=== PATIENT | male | born 1955 | race Caucasian/White ===

== ENCOUNTER 2021-01-27 14:20 | Inpatient (IN) | payer BC, SELFPAY ==
[2021-01-27] VITALS (7 sets, daily range): BP systolic 106–141; BP diastolic 65–76; PULSE 82–98; RESP 18–22; TEMP 36.8–37.5; O2SAT 94–99; BMI 21.2
--- NOTE | ~2021-01-27 | CT_ITS ---
PROCEDURE: CT-GUIDED DRAINAGE, PERITONEAL ABSCESS CLINICAL INFORMATION: Intra-abdominal abscess. Multiple previous GI surgeries for Crohn's disease. COMPARISON: None TECHNIQUE: Following explaining CT fluoroscopy-guided intra-abdominal abscess drainage and catheter placement procedure, benefits and risks, written consent was obtained. Patient was placed supine on CT table and preliminary CT imaging was obtained. An optimal site was selected along the anterior abdomen and marked. The marked site was cleaned and draped in usual sterile manner. 1% lidocaine was injected at puncture site. Through a small skin incision a 5-Portuguese Yueh catheter was advanced into the intra-abdominal abscess under CT fluoroscopy guidance. After observing pus return, stylet was withdrawn and a 0.035 J-wire was placed. The Yueh needle was withdrawn and 10.2-Portuguese APD catheter with stiffener was advanced over the guidewire and placed within the abscess. The stiffener was removed as the catheter was advanced into the abscess. The entire stiffener and the guidewire was removed and a pigtail was formed. The pigtail was then connected to a suction bulb via a bivalve. CT imaging was performed to confirm tip of catheter within the abscess. The catheter was anchored to the skin with 3-0 nylon sutures. Sterile dressing was applied postprocedure. IV conscious sedation was administered during the exam. Patient tolerated procedure extremely well. This CT examination was performed using dose optimization techniques as appropriate, variously including the following: *Automated exposure control *Adjustment of mA and/or kV according to patient size (this includes techniques or standardized protocols for targeted exams where dose is matched to indication/reason for exam; i.e. extremities or head) *Use of iterative reconstruction technique DLP: 177 mGy-cm FINDINGS: On preliminary CT imaging there is a intra-abdominal abscess just adjacent to the umbilicus measuring 5.4 x 3.0 cm. A 10.2-Portuguese APD catheter was left in the abscess. The abscess lies in close approximation to the ileocolic anastomosis with inferior adjacent thickened ileal loop. The findings are similar to the preceding CT abdomen exam 01/27/2021. CT/CT drain peritoneum IMPRESSION: Successful CT fluoroscopy-guided placement of 10.2-Portuguese APD catheter. Approximately 2 mL of abscess was collected and sent to lab for anaerobic, aerobic culture and sensitivity including Gram stain.
--- NOTE | ~2021-01-27 | CT_ITS ---
EXAMINATION: CT ABDOMEN AND PELVIS WITH CONTRAST CLINICAL INFORMATION: bilateral lower quadrant pain COMPARISON: 10/25/2012 TECHNIQUE: Multidetector volumetric imaging was performed from the superior aspect of the liver through the pubic symphysis following administration of 100 mL Omnipaque 350 intravenous contrast Sagittal and coronal reformatted images were obtained on the technologist workstation.. This CT examination was performed using dose optimization techniques as appropriate, variously including the following: *Automated exposure control *Adjustment of mA and/or kV according to patient size (this includes techniques or standardized protocols for targeted exams where dose is matched to indication/reason for exam; i.e. extremities or head) *Use of iterative reconstruction technique DLP: 339 mGy-cm FINDINGS: LUNG BASES: Linear scarring or atelectasis at the lung bases. LIVER, GALLBLADDER, AND BILIARY TREE: The liver is normal in size, shape, and attenuation. No focal hepatic lesion or biliary ductal dilatation is present. Gallstone seen in the dependent portion of the gallbladder. No gallbladder wall thickening or pericholecystic inflammatory changes noted. PANCREAS: Unremarkable. SPLEEN: Unremarkable. ADRENAL GLANDS: Unremarkable. KIDNEYS AND URETERS: The kidneys are normal in size, shape, and attenuation. Mild fullness to the lateral renal pelvises and ureters without caliectasis or perinephric stranding. Both ureters are followed throughout their course up to the urinary bladder with no obvious ureteric calculi BLADDER: Unremarkable. GASTROINTESTINAL TRACT: Relatively distended rectum compressed rectosigmoid. Sigmoid colon is tortuous. Although decompressed, it would be difficult to exclude some subtle wall thickening in the descending colon. Patient is status post right hemicolectomy with ileocolic anastomosis to the mid transverse colon. The neoterminal ileum is abnormally thick-walled for length of approximately 12 cm proximal to the ileocolic anastomosis. There is mucosal enhancement in this region consistent with underlying acute inflammatory change. There is also an ill-defined interloop collection in the midline periumbilical region directly abutting the neoterminal ileum and ileocolic anastomosis. This abscess collection measures 5.9 x 3.8 x 5.5 cm in size. Strictly contiguous with the transverse colon near the anastomosis and directly abuts the distal ileum as well. There are surrounding inflammatory changes and mesenteric lymph nodes noted. ABDOMINAL WALL: No significant hernia is appreciated. LYMPHOVASCULAR STRUCTURES: Prominent mesenteric adenopathy surrounding the interloop abscess likely reactive in nature PELVIC VISCERA: Unremarkable. OSSEOUS STRUCTURES: Unremarkable. CT/CT abdomen pelvis w con IMPRESSION: Status post right hemicolectomy with ileocolic anastomosis to the mid transverse colon. There is abnormal wall thickening to the distal ileum/neoterminal ileum extending to the ileocolic anastomosis consistent with acute inflammation in this patient with underlying Crohn's disease. Abutting this area there is a irregularly-shaped peripheral enhancing collection likely representing an interloop abscess. This is directly abutting the remaining transverse colon near the anastomosis as well as abutting the neoterminal ileum. There are prominent surrounding lymph nodes.
--- NOTE | 2021-01-27 16:59 | ECG_ITS ---
Test Reason : ABDOMINAL PAIN Blood Pressure : / mmHG Vent. Rate : 082 BPM Atrial Rate : 082 BPM P-R Int : 180 ms QRS Dur : 134 ms QT Int : 396 ms P-R-T Axes : 057 004 024 degrees QTc Int : 462 ms Normal sinus rhythm Right bundle branch block Abnormal ECG When compared with ECG of 11-JUN-2007 19:14, Right bundle branch block is now Present Referred By: Erin Rodriguez Electronically Signed By:BRETT GAGNON
--- NOTE | 2021-01-27 17:04 | ED_ITS ---
HPI - General Adult General Chief complaint: General Medical Stated complaint: ABD PAIN WEAK +COVID 3WKS AGO Time Seen by Provider: 01/27/21 16:40 Source: patient Mode of arrival: ambulatory Limitations: no limitations History of Present Illness HPI narrative: Patient comes to the emergency room complaining of generalized malaise and weakness and upper abdominal pain for 1 week. Patient states that he tested positive for COVID-19 3 weeks ago. Patient states that for the last 2 weeks while he was in quarantine he was doing fairly well and asymptomatic. After the quarantine was over, he started developing chills, no fever, generalized malaise, weakness and upper abdominal pain constantly which does get worse with food intake or fluids. Patient is known to have Crohn's disease, has been in remission for over 4 years. Patient used to take Humira but due to insurance issues he had to stop his treatment 4 years ago. Patient states he has been having multiple episodes of diarrhea, no vomiting Related Data Allergies Allergy/AdvReac Type Severity Reaction Status Date / Time Penicillins [PENICILLINS] Allergy Unknown RASH Unverified 07/02/20 15:24 PCN Allergy Unknown rash Uncoded 12/10/12 00:00 penicillin Allergy Unknown Uncoded 03/31/16 00:00 Review of Systems Review of Systems: Constitutional : No Weight loss, No Fever, No Chills, No Night Sweats, complaining of fatigue and generalized malaise ENT/Mouth : No Hearing loss, No Ear Pain, No Nasal Congestion, No Sinus Pain, No Hoarseness, No sore throat, No Rhinorrhea, No Swallowing Difficulty Eyes: No Eye Pain, No Swelling, No Redness, No Foreign Body, No Discharge, No Vision Changes Cardiovascular : No Chest Pain, No SOB, denies Dyspnea on Exertion, No Orthopnea, No Edema, No Palpitations Respiratory : No Cough, No Sputum, No Wheezing, No Smoke Exposure, No Dyspnea Gastrointestinal : No Nausea, No Vomiting, complaining of diarrhea, and bilateral upper quadrant pain and epigastric pain. No Hematochezia, No Melena Genitourinary : no irregular bleeding, No Dysuria, No Urinary Frequency, No Hematuria, No Urinary Incontinence, No Urgency, No Flank Pain, No Urinary Flow Changes, No Hesitancy Musculoskeletal : No joint pain, No Myalgias, No Joint Swelling Skin : No Skin Lesions, No rash Neuro : No Weakness, No Numbness, No Paresthesias, No Loss of Consciousness, No Dizziness, No Headache Psych : No Anxiety/Panic, No Depression, No SI/HI/AH/VH, No Social Issues, Heme/Lymph: No Bruising, No Bleeding,No Lymphadenopathy Endocrine : No Polyuria, No Polydipsia, No Temperature Intolerance [facility] Past Medical History Medical History Abdominal adhesions Crohn's disease Social History Social History Advance Directives: Yes Advance Directives Information Provided: Yes Advance Directives on File: No Physical Exam Vital Signs: Vital Signs: Last Vital Signs Temp 99.1 F 01/27/21 19:37 Pulse 90 01/27/21 19:37 Resp 20 01/27/21 20:52 BP 140/74 H 01/27/21 19:37 Pulse Ox 99 01/27/21 19:37 Body Mass Index 21.2 Appearance: Alert. Oriented X3. No acute distress. Eyes: Pupils equal, round and reactive to light. ENT: Pharynx normal. Neck: Normal inspection. Neck supple. No lymph nodes noted. No crepitus CVS: Normal heart rate and rhythm. Pulses normal. Normal S1 and S2 Respiratory: No respiratory distress. Breath sounds normal. No Wheezing. No rales Abdomen: Soft, mild discomfort to palpation over bilateral upper quadrants. No rigidity. No distention. good BS x4 Skin: Skin warm and dry. Normal skin color. Normal skin turgor. Extremities: No lower extremity edema. No lower extremity edema. No Lacerations. No Rash Neuro: Oriented X 3. No motor deficit. No sensory deficit. Moving all extermities. No slurred speech. Course Course Course Narrative: I discussed the patient with Dr. Mitchell this, patient will be admitted under the Medicine Team, interventional Radiology will likely drain the abscess in the morning. Lactic acid and blood cultures pending, at this time sepsis is not suspected. Dr. Gonzalez will be admitting the patient. Medical Decision Making Lab Data Result diagrams: 01/27/21 16:59 01/27/21 Unknown Labs: Lab Results 01/27/21 01/27/21 01/27/21 Range/Units 16:57 16:59 19:45 WBC 14.7 H (4.8-10.8) X10*3/uL RBC 3.96 L (4.60-5.80) X10*6/uL Hgb 12.5 L (14.0-18.0) g/dl Hct 38.4 L (42-52) % MCV 97.0 (80-98) fL MCH 31.6 (27.0-33.0) pg MCHC 32.6 (31.0-36.0) g/dl RDW 12.6 (11.0-16.0) % Plt Count 562 H (160-400) X10*3/uL MPV 9.2 L (9.4-12.4) fL Immature Gran % (Auto) 0.5 H (0.0-0.4) % Neut % (Auto) 82.7 H (45-73) % Lymph % (Auto) 8.3 L (20-40) % [place] % (Auto) 7.2 (2-11) % Eos % (Auto) 1.2 (0-4) % Baso % (Auto) 0.1 (0-2) % Lymph # (Auto) 1.2 (1.2-4.9) X10*3/uL [place] # (Auto) 1.1 (0.1-1.2) X10*3/uL Eos # (Auto) 0.2 (0.0-0.4) X10*3/uL Baso # (Auto) 0.0 (0.0-0.2) X10*3/uL Abs Immat Gran (auto) 0.07 H (0.00-0.03) X10*3/uL Absolute Neuts (auto) 12.1 H (2.0-8.3) X10*3/uL Absolute Nucleated RBC 0.000 (0.0-0.012) X10*3/uL Nucleated RBC % (auto) 0.0 (0.0-0.2) /100WBC Sodium (135-145) mmol/L Potassium (3.3-5.1) mmol/L Chloride (96-108) mmol/L Carbon Dioxide (22-29) mmol/L Anion Gap (12-20) BUN (9-16) mg/dL Creatinine (0.5-1.4) mg/dL Estim Creat Clear Calc Estimated GFR Random Glucose (60-115) mg/dL Lactic Acid (0.5-2.0) mmol/L Calcium (8.4-10.2) mg/dL Total Bilirubin (0.0-1.0) mg/dL Direct Bilirubin (0.0-0.5) mg/dL AST (5-37) U/L ALT (0-40) U/L Alkaline Phosphatase (39-117) U/L Total Protein (6.5-8.0) g/dL Albumin (3.5-5.0) g/dL Lipase (8-78) U/L Urine Color STRAW YELLOW Urine Appearance CLEAR CLEAR Urine pH 6.5 6.5 (5.0-8.0) Ur Specific [place] 1.010 <= 1.005 (1.005-1.025) Urine Protein NEG NEG (NEG-TRACE) MG/DL Urine Glucose (UA) NEG 100 H (NEG) MG/DL Urine Ketones NEG NEG (NEG) MG/DL Urine Blood TRACE TRACE (NEG) Urine Nitrite NEG NEG (NEG) Ur Leukocyte Esterase NEG NEG (NEG) Urine RBC 0-2 0-2 (0) /HPF Urine WBC 0-2 0 (0-4) /HPF Ur Squamous Epith Cells TRACE NONE /LPF Urine Bacteria NONE NONE /LPF 01/27/21 01/27/21 Range/Units Unknown Unknown WBC (4.8-10.8) X10*3/uL RBC (4.60-5.80) X10*6/uL Hgb (14.0-18.0) g/dl Hct (42-52) % MCV (80-98) fL MCH (27.0-33.0) pg MCHC (31.0-36.0) g/dl RDW (11.0-16.0) % Plt Count (160-400) X10*3/uL MPV (9.4-12.4) fL Immature Gran % (Auto) (0.0-0.4) % Neut % (Auto) (45-73) % Lymph % (Auto) (20-40) % [place] % (Auto) (2-11) % Eos % (Auto) (0-4) % Baso % (Auto) (0-2) % Lymph # (Auto) (1.2-4.9) X10*3/uL [place] # (Auto) (0.1-1.2) X10*3/uL Eos # (Auto) (0.0-0.4) X10*3/uL Baso # (Auto) (0.0-0.2) X10*3/uL Abs Immat Gran (auto) (0.00-0.03) X10*3/uL Absolute Neuts (auto) (2.0-8.3) X10*3/uL Absolute Nucleated RBC (0.0-0.012) X10*3/uL Nucleated RBC % (auto) (0.0-0.2) /100WBC Sodium 139 (135-145) mmol/L Potassium 3.0 L (3.3-5.1) mmol/L Chloride 103 (96-108) mmol/L Carbon Dioxide 25 (22-29) mmol/L Anion Gap 14 (12-20) BUN 8 L (9-16) mg/dL Creatinine 0.79 (0.5-1.4) mg/dL Estim Creat Clear Calc 85.9 Estimated GFR > 60 Random Glucose 94 (60-115) mg/dL Lactic Acid 0.9 (0.5-2.0) mmol/L Calcium 9.0 (8.4-10.2) mg/dL Total Bilirubin 0.4 (0.0-1.0) mg/dL Direct Bilirubin 0.2 (0.0-0.5) mg/dL AST 15 (5-37) U/L ALT 16 (0-40) U/L Alkaline Phosphatase 106 (39-117) U/L Total Protein 6.5 (6.5-8.0) g/dL Albumin 3.8 (3.5-5.0) g/dL Lipase 12 (8-78) U/L Urine Color Urine Appearance Urine pH (5.0-8.0) Ur Specific [place] (1.005-1.025) Urine Protein (NEG-TRACE) MG/DL Urine Glucose (UA) (NEG) MG/DL Urine Ketones (NEG) MG/DL Urine Blood (NEG) Urine Nitrite (NEG) Ur Leukocyte Esterase (NEG) Urine RBC (0) /HPF Urine WBC (0-4) /HPF Ur Squamous Epith Cells /LPF Urine Bacteria /LPF Imaging Data CT scan - abdomen: Radiologist's impression: FINDINGS: LUNG BASES: Linear scarring or atelectasis at the lung bases. LIVER, GALLBLADDER, AND BILIARY TREE: The liver is normal in size, shape, and attenuation. No focal hepatic lesion or biliary ductal dilatation is present. Gallstone seen in the dependent portion of the gallbladder. No gallbladder wall thickening or pericholecystic inflammatory changes noted. PANCREAS: Unremarkable. SPLEEN: Unremarkable. ADRENAL GLANDS: Unremarkable. KIDNEYS AND URETERS: The kidneys are normal in size, shape, and attenuation. Mild fullness to the lateral renal pelvises and ureters without caliectasis or perinephric stranding. Both ureters are followed throughout their course up to the urinary bladder with no obvious ureteric calculi BLADDER: Unremarkable. GASTROINTESTINAL TRACT: Relatively distended rectum compressed rectosigmoid. Sigmoid colon is tortuous. Although decompressed, it would be difficult to exclude some subtle wall thickening in the descending colon. Patient is status post right hemicolectomy with ileocolic anastomosis to the mid transverse colon. The neoterminal ileum is abnormally thick-walled for length of approximately 12 cm proximal to the ileocolic anastomosis. There is mucosal enhancement in this region consistent with underlying acute inflammatory change. There is also an ill-defined interloop collection in the midline periumbilical region directly abutting the neoterminal ileum and ileocolic anastomosis. This abscess collection measures 5.9 x 3.8 x 5.5 cm in size. Strictly contiguous with the transverse colon near the anastomosis and directly abuts the distal ileum as well. There are surrounding inflammatory changes and mesenteric lymph nodes noted. ABDOMINAL WALL: No significant hernia is appreciated. LYMPHOVASCULAR STRUCTURES: Prominent mesenteric adenopathy surrounding the interloop abscess likely reactive in nature PELVIC VISCERA: Unremarkable. OSSEOUS STRUCTURES: Unremarkable. CT/CT abdomen pelvis w con IMPRESSION: Status post right hemicolectomy with ileocolic anastomosis to the mid transverse colon. There is abnormal wall thickening to the distal ileum/neoterminal ileum extending to the ileocolic anastomosis consistent with acute inflammation in this patient with underlying Crohn's disease. Abutting this area there is a irregularly-shaped peripheral enhancing collection likely representing an interloop abscess. This is directly abutting the remaining transverse colon near the anastomosis as well as abutting the neoterminal ileum. There are prominent surrounding lymph nodes. ECG Data Attestation: I personally reviewed and interpreted this ECG as follows: (Heart rate 82, sinus rhythm, right bundle branch block, QTC 462) Discharge Plan Discharge Clinical Impression: Exacerbation of Crohn's disease with abscess Patient Disposition: Admitted As Inpatient
[2021-01-27 17:06] LABS: Glucose Urine UA NEG (NEG); Leukocyte Esterase Urine NEG (NEG); Nitrite Urine NEG (NEG); PH 6.5 (5.0-8.0); Urine Blood TRACE (NEG); Urine Ketones NEG (NEG); Urine Protein NEG (NEG-TRACE)
[2021-01-27 17:07] LABS: Appearance Urine CLEAR; Color Urine STRAW
[2021-01-27 17:41] LABS: RBC Urine 0-2 /HPF (0); Squamous Epithelial Cell Urine TRACE /LPF; WBC Urine 0-2 /HPF (0-4)
[2021-01-27 17:56] LABS: Basophils Percent Auto 0.1 % (0-2); Eosinophils Absolute Auto 0.2 X10*3/uL (0.0-0.4); Eosinophils Percent Auto 1.2 % (0-4); Hematocrit 38.4 % (42-52); Hemoglobin 12.5 g/dl (14.0-18.0); Imm Gran Abs Auto 0.07 X10*3/uL (0.00-0.03); Imm Gran Pct Auto 0.5 % (0.0-0.4); Lymphocytes Absolute Auto 1.2 X10*3/uL (1.2-4.9); Lymphocytes Percent Auto 8.3 % (20-40); MANUAL DIFF FLAG NO; Mean Corpuscular HGB Conc 32.6 g/dl (31.0-36.0); Mean Corpuscular Hemoglobin 31.6 pg (27.0-33.0); Mean Platelet Volume 9.2 fL (9.4-12.4); Monocytes Absolute Auto 1.1 X10*3/uL (0.1-1.2); Monocytes Percent Auto 7.2 % (2-11); Neutrophils Absolute Auto 12.1 X10*3/uL (2.0-8.3); Neutrophils Percent Auto 82.7 % (45-73); Platelet Count 562 X10*3/uL (160-400); Red Blood Count 3.96 X10*6/uL (4.60-5.80); Red Cell Distribution Width 12.6 % (11.0-16.0); White Blood Count 14.7 X10*3/uL (4.8-10.8)
[2021-01-27] MEDS: Morphine Sulfate 4 MG/ML CARTRIDGE IVPUSH (17:56)
[2021-01-27] MEDS: 0.9 % Sodium Chloride 1,000 ML 999 ML IVCONT ×2 (17:56→22:33)
[2021-01-27 18:17] LABS: Lactic Acid 0.9 mmol/L (0.5-2.0)
[2021-01-27 18:29] LABS: Alanine Aminotransferase 16 U/L (0-40); Albumin Level 3.8 g/dL (3.5-5.0); Alkaline Phosphatase 106 U/L (39-117); Anion Gap 14 (12-20); Aspartate Amino Transferase 15 U/L (5-37); Bilirubin Direct 0.2 mg/dL (0.0-0.5); Bilirubin Total 0.4 mg/dL (0.0-1.0); Blood Urea Nitrogen 8 mg/dL (9-16); Carbon Dioxide 25 mmol/L (22-29); Chloride 103 mmol/L (96-108); Creatinine Clr Calc Pharmacy 85.9; Estimated Glomerular Filt Rate > 60; Glucose Random 94 mg/dL (60-115); Lipase 12 U/L (8-78); Sodium 139 mmol/L (135-145); Total Protein 6.5 g/dL (6.5-8.0)
[2021-01-27] MEDS: iohexoL 350 MG/ML 100 ML INFUS..BTL IV (18:59)
[2021-01-27 20:08] LABS: Glucose Urine UA 100 MG/DL (NEG); Leukocyte Esterase Urine NEG (NEG); Nitrite Urine NEG (NEG); PH 6.5 (5.0-8.0); Specific Gravity - Urine <= 1.005 (1.005-1.025); Urine Blood TRACE (NEG); Urine Ketones NEG (NEG); Urine Protein NEG (NEG-TRACE)
[2021-01-27 20:10] LABS: Appearance Urine CLEAR; Color Urine YELLOW
[2021-01-27 20:31] LABS: RBC Urine 0-2 /HPF (0); WBC Urine 0 /HPF (0-4)
[2021-01-27] MEDS: methylPREDNISolone Sod Succ 125 MG/2 ML VIAL IVPUSH (20:52)
[2021-01-27] MEDS: HYDROmorphone HCl 1 MG/ML SYRINGE IVPUSH (20:52)
--- NOTE | 2021-01-27 21:12 | P.HPHOSP_ITS ---
History of Present Illness Date of Service: 01/27/21 Chief Complaint: Abdominal pain 65-year-old male with a past medical history of Crohn's disease-in remission currently not on any medications; recently diagnosed with COVID-19 about 3 weeks ago and has been asymptomatic until a week ago when she started to develop diarrhea and abdominal pain, constant in nature worsens with food intake. As the symptoms were not improving decided to come to the ER for further evaluation. Denies any chest pain palpitations lightheadedness or dizziness. Denies any shortness of breath fevers or chills. Denies any cough. Denies any nausea. Review of all other systems is negative except mentioned above ER course: Per ER team patient abdominal exam was tender more so in the upper quadrants, no guarding no rigidity; CT scan showed wall thickening of the ileal colic anastomosis consistent with acute inflammation and also noted interloop abscess; patient was given Solu-Medrol, antibiotics; ER physician spoke to Dr. Mitchell from general surgery who suggested admission to medicine service and IR guided drainage of the abscess in the morning. [facility] Medical History Abdominal adhesions Crohn's disease Social History Household Members: Spouse Housing: House Smoking Status: Former smoker Tobacco Type: Cigarette Second Hand Smoke Exposure: No Advance Directives Date on File: 01/28/21 service: No Current occupational status: retired Meds Allergies Allergy/AdvReac Type Severity Reaction Status Date / Time Penicillins [PENICILLINS] Allergy Mild RASH Verified 01/30/21 17:40 PCN Allergy Mild rash Uncoded 01/30/21 17:40 penicillin Allergy Mild Rash Uncoded 01/30/21 17:40 Active Medications: Current Medications Generic Name Dose Route Start Last Admin Trade Name Freq PRN Reason Stop Dose Admin Acetaminophen 650 mg 01/27/21 21:02 Acetaminophen 325 Mg Tablet PO Q6H PRN Pain, Mild (Pain Scale 1-3) Hydromorphone HCl 0.5 mg 01/27/21 21:03 Hydromorphone Hcl 0.5 Mg/0.5 Ml Syringe IVPUSH Q6H PRN Pain, Severe (Pain Scale 7-10) Metronidazole 500 mg in 100 mls @ 100 mls/hr 01/27/21 20:51 Flagyl IV 01/27/21 21:50 POSTOP ONE Levofloxacin 500 mg in 100 mls @ 100 mls/hr 01/27/21 20:51 Levaquin IV 01/27/21 21:50 ONCE ONE Sodium Chloride 1,000 mls @ 999 mls/hr 01/27/21 20:59 Ns IVCONT 01/27/21 21:59 .Q1H1M ONE Dextrose/Sodium Chloride 1,000 mls @ 100 mls/hr 01/27/21 21:15 D51/2ns IVCONT .Q10H HERMINIA Metronidazole 500 mg in 100 mls @ 100 mls/hr 01/27/21 21:15 Flagyl IV Q8H HERMINIA Levofloxacin 750 mg in 150 mls @ 100 mls/hr 01/28/21 21:15 Levaquin IV Q24H [facility] Pharmacy Consult 1 each 01/27/21 20:57 Consult Rx Perform Med Rec MISCELLANE ONCE PRN Consult order Pharmacy Consult 1 each 01/27/21 21:02 Consult Rx Perform Med Rec MISCELLANE ONCE PRN Consult order Sodium Chloride 3 ml 01/28/21 00:00 0.9 % Sodium Chloride Flush 3 Ml Syringe IVFLUSH QSHIFT [facility] Physical Exam Vital Signs and Narrative: Vital Signs: Last Vital Signs Temp 99.1 F 01/27/21 19:37 Pulse 90 01/27/21 19:37 Resp 20 01/27/21 20:52 BP 140/74 H 01/27/21 19:37 Pulse Ox 99 01/27/21 19:37 Body Mass Index 21.2 Gen: Appears be in no acute distress HEENT: NCAT, Moist mucosa. Pulmonary: Vesicular breath sounds, fair air entry CVS: Normal S1-S2 Abdomen: BS+, Soft, mildly tender diffusely; no guarding no rigidity Extremities: Warm well perfused Neuro: Alert and awake. Results Labs CBC and Chem 7: 01/30/21 06:12 02/02/21 12:17 Labs: Laboratory Results - last 24 hr 01/27/21 01/27/21 01/27/21 16:57 16:59 19:45 MCV 97.0 MCH 31.6 MCHC 32.6 RDW 12.6 Plt Count 562 H MPV 9.2 L Immature Gran % (Auto) 0.5 H Neut % (Auto) 82.7 H Lymph % (Auto) 8.3 L [place] % (Auto) 7.2 Eos % (Auto) 1.2 Baso % (Auto) 0.1 Lymph # (Auto) 1.2 [place] # (Auto) 1.1 Eos # (Auto) 0.2 Baso # (Auto) 0.0 Abs Immat Gran (auto) 0.07 H Absolute Neuts (auto) 12.1 H Absolute Nucleated RBC 0.000 Nucleated RBC % (auto) 0.0 Anion Gap Estim Creat Clear Calc Estimated GFR Random Glucose Lactic Acid Calcium Total Bilirubin Direct Bilirubin AST ALT Alkaline Phosphatase Total Protein Albumin Lipase Urine Color STRAW YELLOW Urine Appearance CLEAR CLEAR Urine pH 6.5 6.5 Ur Specific [place] 1.010 <= 1.005 Urine Protein NEG NEG Urine Glucose (UA) NEG 100 H Urine Ketones NEG NEG Urine Blood TRACE TRACE Urine Nitrite NEG NEG Ur Leukocyte Esterase NEG NEG Urine RBC 0-2 0-2 Urine WBC 0-2 0 Ur Squamous Epith Cells TRACE NONE Urine Bacteria NONE NONE 01/27/21 01/27/21 Unknown Unknown MCV MCH MCHC RDW Plt Count MPV Immature Gran % (Auto) Neut % (Auto) Lymph % (Auto) [place] % (Auto) Eos % (Auto) Baso % (Auto) Lymph # (Auto) [place] # (Auto) Eos # (Auto) Baso # (Auto) Abs Immat Gran (auto) Absolute Neuts (auto) Absolute Nucleated RBC Nucleated RBC % (auto) Anion Gap 14 Estim Creat Clear Calc 85.9 Estimated GFR > 60 Random Glucose 94 Lactic Acid 0.9 Calcium 9.0 Total Bilirubin 0.4 Direct Bilirubin 0.2 AST 15 ALT 16 Alkaline Phosphatase 106 Total Protein 6.5 Albumin 3.8 Lipase 12 Urine Color Urine Appearance Urine pH Ur Specific [place] Urine Protein Urine Glucose (UA) Urine Ketones Urine Blood Urine Nitrite Ur Leukocyte Esterase Urine RBC Urine WBC Ur Squamous Epith Cells Urine Bacteria Imaging Radiologist's Impressions: Impressions Abdomen/Pelvis CT 01/27/21 16:58 IMPRESSION: Status post right hemicolectomy with ileocolic anastomosis to the mid transverse colon. There is abnormal wall thickening to the distal ileum/neoterminal ileum extending to the ileocolic anastomosis consistent with acute inflammation in this patient with underlying Crohn's disease. Abutting this area there is a irregularly-shaped peripheral enhancing collection likely representing an interloop abscess. This is directly abutting the remaining transverse colon near the anastomosis as well as abutting the neoterminal ileum. There are prominent surrounding lymph nodes. Assessment and Plan (1) Exacerbation of Crohn's disease with abscess: Status: Acute 65-year-old male with a past medical history of Crohn's disease presented to the hospital with a chief complaint of abdominal pain for about a week; noted to have Crohn's exacerbation with abscess. Admitted for further management. Crohn's flare /abscess; CT scan showed ileocolonic anastomosis inflammation and interloop abscess. Patient has no guarding or rigidity currently. Vital stable. General surgery Dr. Mitchell was made aware, who suggested IR guided drainage in the morning. NPO IV fluids Pain control Continue Levaquin and Flagyl Blood cultures have been sent Will continue Solu-Medrol 20 mg IV t.i.d.. Gastroenterology consult for further recommendations Will also obtain stool studies including C diff and occult blood Recent diagnosis of COVID-19: Patient finished 2 weeks of quarantine. Currently denies any fever chills cough or shortness of breath. DVT prophylaxis: SCD boots Code status: Full code
[2021-01-27] MEDS: Metoclopramide HCl 10 MG/2 ML VIAL IVPUSH (22:29)
[2021-01-27] MEDS: levoFLOXacin/D5W 500 MG/100 ML PIGGYBACK 100 MG IV (22:31)
[2021-01-27 22:35] LABS: Lactic Acid 0.8 mmol/L (0.5-2.0)
[2021-01-27 22:40] LABS: COVID-19 Test Negative (Negative); IDNOW Serial# 9DD0AD1C
[2021-01-28] VITALS (7 sets, daily range): BP systolic 106–122; BP diastolic 57–72; PULSE 75–90; RESP 14–20; TEMP 36.2–36.9; O2SAT 96–97
[2021-01-28] MEDS: Dextrose 5 % and 0.45 % NaCl 1,000 ML 100 ML IVCONT ×3 (00:02→23:53)
[2021-01-28] MEDS: metroNIDAZOLE/NS 500 MG/100 ML PIGGYBACK 100 MG IV ×4 (00:02→21:21)
[2021-01-28] MEDS: 0.9 % Sodium Chloride Flush 3 ML SYRINGE IVFLUSH ×2 (00:06→22:22)
--- NOTE | 2021-01-28 01:35 | PC.NURSE ---
Report attempted x 1
[2021-01-28] MEDS: methylPREDNISolone Sod Succ 40 MG/ML VIAL 20 MG IVPUSH (05:45)
--- NOTE | 2021-01-28 08:21 | PM.CNGS ---
History of Present Illness Consult details Consult date: 01/28/21 Narrative: 65-year-old male with known history of Crohn's disease, who came to the emergency room yesterday because of abdominal pain. He says that he has been going on for about a week now. He denies any fever or chills. He mentions having some diarrhea about 2 weeks ago. He does state that he had a COVID infection prior to that and thought that this might have been related to the COVID infection. His pain had persisted so he decided to come to the emergency room. He said this was an 8/10 usually at home. Denies any nausea or vomiting. He denies any fever. He has a long history of disease and underwent ileo- colectomy a 1986. He underwent a repeat resection of the distal ileum and part of the colon for an inflammatory mass with an abscess in [address] Parmar. He was admitted in 2012 for a mesenteric abscess as well. He states he has not seen Dr. Hernandez his well driller helper in a long time. He said he has not taking any maintenance medications for his Crohn's disease. Currently, he says he does not have any pain anymore. Review of Systems Constitutional: Constitutional: Denies chills and Denies fever(s) Cardiovascular: Cardiovascular: Denies chest pain, Denies dyspnea and Denies dyspnea on exertion Respiratory: Respiratory: Denies cough, Denies dyspnea and Denies dyspnea on exertion Gastrointestinal: Gastrointestinal: Denies hematochezia and Reports diarrhea Genitourinary: Genitourinary: Denies hematuria and Denies difficulty urinating Musculoskeletal: Musculoskeletal: Denies back pain and Denies limited range of motion Neurologic: Denies focal weakness and Denies convulsions Psychiatric: Psychiatric: Denies depression and Denies mood swings [facility] Past Medical History Medical History Abdominal adhesions Crohn's disease Social History Social History Household Members: Spouse Housing: House Do you presently have visiting nurse or other home services: No Smoking Status: Former smoker Tobacco Type: Cigarette Smoked in Last 30 Days: No Smoking Quit Date: 01/06/21 Patient Interested in Nicotine Replacement: No Patient Given Instructions on How to Stop Smoking: No Second Hand Smoke Exposure: No Use of substances other than those prescribed or required for medical reasons: No Currently Displaying Signs/Symptoms of Drug Intoxication Withdrawal: No Have you been hit, kicked, punched, or otherwise hurt by someone within the past year? If so, by whom?: No Do you feel safe in your current relationship?: Yes Is there a partner from a previous relationship who is making you feel unsafe now?: No Are you made to feel afraid or neglected: No Advance Directives: Yes Advance Directives Information Provided: Yes Advance Directives on File: No Advance Directives Date on File: 01/28/21 Do you have thoughts of harming others: None Do you have a plan to hurt others: No Plan Recently lost weight without trying: Yes service: No Current occupational status: retired Meds Allergies Allergy/AdvReac Type Severity Reaction Status Date / Time Penicillins [PENICILLINS] Allergy Unknown RASH Unverified 07/02/20 15:24 PCN Allergy Unknown rash Uncoded 12/10/12 00:00 penicillin Allergy Unknown Uncoded 03/31/16 00:00 Active Medications: Current Medications Generic Name Dose Route Start Last Admin Trade Name Freq PRN Reason Stop Dose Admin Acetaminophen 650 mg 01/27/21 21:02 Acetaminophen 325 Mg Tablet PO Q6H PRN Pain, Mild (Pain Scale 1-3) Hydromorphone HCl 0.5 mg 01/27/21 21:03 Hydromorphone Hcl 0.5 Mg/0.5 Ml Syringe IVPUSH Q6H PRN Pain, Severe (Pain Scale 7-10) Dextrose/Sodium Chloride 1,000 mls @ 100 mls/hr 01/27/21 21:15 01/28/21 07:38 D51/2ns IVCONT Not Given .Q10H HERMINIA Metronidazole 500 mg in 100 mls @ 100 mls/hr 01/28/21 06:00 01/28/21 07:10 Flagyl IV Infused Q8H HERMINIA Infusion Levofloxacin 750 mg in 150 mls @ 100 mls/hr 01/28/21 22:00 Levaquin IV Q24H EHRMINIA Methylprednisolone Sodium Succinate 20 mg 01/27/21 21:15 01/28/21 05:45 Methylprednisolone Sod Succ 40 Mg/Ml Vial IVPUSH 20 mg Q8H [facility] Administration Pharmacy Consult 1 each 01/27/21 20:57 Consult Rx Perform Med Rec MISCELLANE ONCE PRN Consult order Pharmacy Consult 1 each 01/27/21 21:02 Consult Rx Perform Med Rec MISCELLANE ONCE PRN Consult order Sodium Chloride 3 ml 01/28/21 00:00 01/28/21 07:38 0.9 % Sodium Chloride Flush 3 Ml Syringe IVFLUSH Not Given QSHIFT [facility] Home Medications Medication Instructions Recorded Confirmed Last Taken Type No Known Home Meds 01/27/21 01/27/21 Unknown History Physical Exam Vital Signs: Vital Signs: Last Vital Signs Temp 97.7 F 01/28/21 07:47 Pulse 81 01/28/21 07:47 Resp 16 01/28/21 07:47 BP 106/64 01/28/21 07:47 Pulse Ox 96 01/28/21 07:47 Body Mass Index 21.2 Const: General: comfortable and no acute distress Orientation/consciousness: patient oriented x3 Neck: Neck: Yes no lymphadenopathy Resp: Auscultation: clear to auscultation bilaterally Cardio: Rhythm: regular rhythm GI: Palpation (GI): Soft to palpation, nontender and no guarding Neuro: General: patient oriented x3 Results Labs Result diagrams: 01/28/21 07:49 01/28/21 07:49 Labs: Abnormal lab results 01/27/21 01/27/21 01/27/21 Range/Units 16:59 19:45 Unknown WBC 14.7 H (4.8-10.8) X10*3/uL RBC 3.96 L (4.60-5.80) X10*6/uL Hgb 12.5 L (14.0-18.0) g/dl Hct 38.4 L (42-52) % Plt Count 562 H (160-400) X10*3/uL MPV 9.2 L (9.4-12.4) fL Immature Gran % (Auto) 0.5 H (0.0-0.4) % Neut % (Auto) 82.7 H (45-73) % Lymph % (Auto) 8.3 L (20-40) % Abs Immat Gran (auto) 0.07 H (0.00-0.03) X10*3/uL Absolute Neuts (auto) 12.1 H (2.0-8.3) X10*3/uL Potassium 3.0 L (3.3-5.1) mmol/L BUN 8 L (9-16) mg/dL Urine Glucose (UA) 100 H (NEG) MG/DL Short CBC 01/27/21 Range/Units 16:59 WBC 14.7 H (4.8-10.8) X10*3/uL Hgb 12.5 L (14.0-18.0) g/dl Hct 38.4 L (42-52) % Plt Count 562 H (160-400) X10*3/uL BMP 01/27/21 Unknown Sodium 139 Potassium 3.0 L Chloride 103 Carbon Dioxide 25 BUN 8 L Creatinine 0.79 Calcium 9.0 Liver Function 01/27/21 Range/Units Unknown Total Bilirubin 0.4 (0.0-1.0) mg/dL Direct Bilirubin 0.2 (0.0-0.5) mg/dL AST 15 (5-37) U/L ALT 16 (0-40) U/L Alkaline Phosphatase 106 (39-117) U/L Albumin 3.8 (3.5-5.0) g/dL Urine 01/27/21 01/27/21 Range/Units 16:57 19:45 Urine Color STRAW YELLOW Urine Appearance CLEAR CLEAR Urine pH 6.5 6.5 (5.0-8.0) Ur Specific [place] 1.010 <= 1.005 (1.005-1.025) Urine Protein NEG NEG (NEG-TRACE) MG/DL Urine Glucose (UA) NEG 100 H (NEG) MG/DL All other labs normal. Imaging Abdomen CT scan report/results: report reviewed and image reviewed CT scan - pelvis: report reviewed and image reviewed Assessment and Plan (1) Exacerbation of Crohn's disease with abscess: Status: Acute He has a long history of Crohn's disease and now has an intra-abdominal abscess adjacent to his distal ileum where the old anastomosis is. There is thickening of the neoterminal ileum as well adjacent to the abscess. The abscess measured about 5.9 x 3.8 x 5.5 cm He currently denies pain. He has a benign abdominal exam at this time. I am going to arrange for him to undergo CT drainage of this abscess. He is currently on antibiotics already. He understands that there is always is the possibility him requiring laparotomy if he does not improve with the planned treatment. He appears comfortable and is hemodynamically stable.
--- NOTE | 2021-01-28 08:33 | P.EN_ITS ---
Event Note Date of Service: 01/28/21 Event Note: GI Consult-Full note dictated Imp: 65 yo male with longstanding Crohn's of the SI with 2 previous surgeries in 1985 and 2006 with associated ileocolic resections for associated localized perforations and abscesses. He has been on biologics and Azathioprine in the p ast, but he has been off all therapy since approx 2018 per his own wishes and had been doing well up until the past 10 days. He now presents with pain and the finding of an intraabdominal abscess with inflammatory changes of the distal small bowel and ileocolic anastomosis. He feels a little better after antibiotics and analgesics. Rec: Agree with current plans of surgical consultation with IR drainage of abscess and continued antibiotics. I would hold off on steroids for the time being given the significant infection and the fact that he has not been on steroids for many years. We did review that he may need surgery again. Will need to hold off on any definitive Crohn's until the infection has been cleared. He may need a PICC and TPN. D/W patient in detail, He is comfortable with this pl an. Thanks
[2021-01-28 08:35] LABS: Basophils Percent Auto 0.1 % (0-2); Hematocrit 32.3 % (42-52); Hemoglobin 11.2 g/dl (14.0-18.0); Imm Gran Abs Auto 0.04 X10*3/uL (0.00-0.03); Imm Gran Pct Auto 0.4 % (0.0-0.4); Lymphocytes Absolute Auto 0.5 X10*3/uL (1.2-4.9); Lymphocytes Percent Auto 5.5 % (20-40); MANUAL DIFF FLAG SCAN; Mean Corpuscular HGB Conc 34.7 g/dl (31.0-36.0); Mean Corpuscular Hemoglobin 33.2 pg (27.0-33.0); Mean Corpuscular Volume 95.8 fL (80-98); Mean Platelet Volume 9.6 fL (9.4-12.4); Monocytes Absolute Auto 0.1 X10*3/uL (0.1-1.2); Monocytes Percent Auto 1.2 % (2-11); Neutrophils Percent Auto 92.8 % (45-73); Platelet Count 489 X10*3/uL (160-400); Red Blood Count 3.37 X10*6/uL (4.60-5.80); Red Cell Distribution Width 12.6 % (11.0-16.0); SCAN SMEAR FLAG 1; White Blood Count 9.7 X10*3/uL (4.8-10.8)
--- NOTE | 2021-01-28 08:36 | MHC.CM.PN ---
PATIENT LIVES WITH HIS /NEW HCP. (PATIENT WILL SIGN DOCUMENT AFTER HE GETS SOME SLEEP) NO DME OR VNA SERVICES IN THE HOME HE IS HOPING TO BE ABLE TO RETURN HOME WITHOUT ANY SERVICES. HIS FORMER PCP WAS DR GHOSH. HE NOW HAS A PROVIDER LIST TO SECURE A CURRENT PCP, AND STATES THAT HE IS FAMILIAR WITH THE PROCESS OF DOING SO. CASE MANAGEMENT FOLLOWING FOR ANY DISCHARGE NEEDS. WILL TRANSPORT PATIENT AT DISCHARGE.
[2021-01-28 08:54] LABS: Anion Gap 12 (12-20); Blood Urea Nitrogen 6 mg/dL (9-16); Calcium 7.6 mg/dL (8.4-10.2); Carbon Dioxide 25 mmol/L (22-29); Chloride 106 mmol/L (96-108); Creatinine Clr Calc Pharmacy 95.6; Estimated Glomerular Filt Rate > 60; Glucose Random 151 mg/dL (60-115); Potassium 3.3 mmol/L (3.3-5.1); Sodium 140 mmol/L (135-145)
[2021-01-28 09:13] LABS: SLIDE REVIEW VERIFIED
[2021-01-28 10:12] LABS: INTERNATIONAL NORM RATIO 1.7 (0.9-1.1); Prothrombin Time 20.1 SEC (10.8-13.0)
[2021-01-28 10:16] LABS: Partial Thromboplastin Time 39.6 SEC (24.1-38.0)
--- NOTE | 2021-01-28 11:16 | HO.PM.IMPN ---
Subjective Subjective Date of Service: 01/28/21 Interval History: Seen in f/u for intraabdominal abscess related to crohn's disease..Feels better since getting antibioitcs. Review of Systems Gen: no fever Resp: no sob, no cough CV: no chest, no IVEY, no leg edema GI: +abdominal pain Neuro: No confusion Physical Exam Vital Signs: Vital Signs: Last Vital Signs Temp 97.7 F 01/28/21 07:47 Pulse 81 01/28/21 07:47 Resp 16 01/28/21 07:47 BP 106/64 01/28/21 07:47 Pulse Ox 96 01/28/21 07:47 Body Mass Index 21.2 Const: Other: General: AO X 3, no acute distress, cachectic Resp: CTA bilateral CVS: S1,S2,RRR GI: +BS, some tenderness, no palpable mass Skin: No rash Neuro: motor grossly intact Psych: appropriate affect Objective Data Current Medications Generic Name Dose Route Start Last Admin Trade Name Freq PRN Reason Stop Dose Admin Acetaminophen 650 mg 01/27/21 21:02 Acetaminophen 325 Mg Tablet PO Q6H PRN Pain, Mild (Pain Scale 1-3) Hydromorphone HCl 0.5 mg 01/27/21 21:03 Hydromorphone Hcl 0.5 Mg/0.5 Ml Syringe IVPUSH Q6H PRN Pain, Severe (Pain Scale 7-10) Dextrose/Sodium Chloride 1,000 mls @ 100 mls/hr 01/27/21 21:15 01/28/21 11:08 D51/2ns IVCONT 100 mls/hr .Q10H HERMINIA Administration Metronidazole 500 mg in 100 mls @ 100 mls/hr 01/28/21 06:00 01/28/21 07:10 Flagyl IV Infused Q8H [facility] Infusion Levofloxacin 750 mg in 150 mls @ 100 mls/hr 01/28/21 22:00 Levaquin IV Q24H [facility] Pharmacy Consult 1 each 01/27/21 20:57 Consult Rx Perform Med Rec MISCELLANE ONCE PRN Consult order Pharmacy Consult 1 each 01/27/21 21:02 Consult Rx Perform Med Rec MISCELLANE ONCE PRN Consult order Sodium Chloride 3 ml 01/28/21 00:00 01/28/21 07:38 0.9 % Sodium Chloride Flush 3 Ml Syringe IVFLUSH Not Given QSHIFT [facility] Labs CBC & Chem 7: 01/28/21 07:49 01/28/21 07:49 Assessment and Plan (1) Exacerbation of Crohn's disease with abscess: Status: Acute Assessment and Plan: 65-year-old male with a past medical history of Crohn's disease presented to the hospital with a chief complaint of abdominal pain for about a week; noted to have Crohn's exacerbation with abscess. Admitted for further management. Crohn's flare /abscess; CT scan showed ileocolonic anastomosis inflammation and interloop abscess. Patient has no guarding or rigidity currently. Vital stable. General surgery Dr. Mitchell was made aware, who suggested IR guided drainage in the morning. NPO IV fluids Pain control Continue Levaquin and Flagyl Blood cultures have been sent Will continue Solu-Medrol 20 mg IV t.i.d.. Gastroenterology consult for further recommendations Will also obtain stool studies including C diff and occult blood Recent diagnosis of COVID-19: Patient finished 2 weeks of quarantine. Currently denies any fever chills cough or shortness of breath. DVT prophylaxis: SCD boots Code status: Full code (2) Intra-abdominal abscess: Status: Acute Assessment and Plan: 65 yo male with longstanding Crohn's of the SI with 2 previous surgeries in 1985 and 2006 with associated ileocolic resections for associated localized perforations and abscesses. He has been on biologics and Azathioprine in the past, but he has been off all therapy since approx 2018 per his own wishes and had been doing well up until the past 10 days. He now presents with pain and the finding of an intraabdominal abscess with inflammatory changes of the distal small bowel and ileocolic anastomosis. He feels a little better after antibiotics and analgesics. plan: Surgery eval IV antibiotics IR imaging guided drainage NO steroid Dilaudid for pain
[2021-01-28] MEDS: HYDROmorphone HCl 0.5 MG/0.5 ML SYRINGE IVPUSH ×2 (13:35→19:57)
[2021-01-28] MEDS: Phytonadione (Vit K1) 10 MG in 0.9 % Sodium Chloride 50 ML 51 MG IV (13:36)
--- NOTE | 2021-01-28 15:27 | MHC.CLN ---
RE: CONSULT PT'S DIET ADVANCED TO C/L PT WITH POOR PO AND RECENT WT LOSS (NOT SIGNIFICANT) R/T ACUTE ILLNESS WILL START 8OZ ENSURE CLEAR TID TO INCREASE KCALS
--- NOTE | 2021-01-28 16:44 | PM.EVENT ---
Event Note Date of Service: 01/28/21 Event Note: Underwent CT drainage of the intra-abdominal abscess earlier Tolerated the procedure well He says he is comfortable drain in place in the midline with note of pus on the bulb Follow up on cultures IV antibiotics for now Clear liquids, advance as tolerated Will continue to follow Seen by GI
[2021-01-28] MEDS: levoFLOXacin/D5W 750 MG/150 ML PIGGYBACK 100 MG IV (22:22)
[2021-01-29] VITALS (8 sets, daily range): BP systolic 110–125; BP diastolic 60–80; PULSE 70–81; RESP 14–20; TEMP 36.3–36.6; O2SAT 95–97
[2021-01-29] MEDS: HYDROmorphone HCl 0.5 MG/0.5 ML SYRINGE IVPUSH ×2 (03:10→12:02)
--- NOTE | 2021-01-29 04:48 | CONS_ITS ---
DATE OF SERVICE: 01/28/2021 REQUESTING PHYSICIAN: Jose Mario MD REASON FOR CONSULTATION: Abdominal pain and history of Crohn's disease. HISTORY OF PRESENT ILLNESS: The patient is a 65-year-old male, well known to me with an underlying history of small bowel Crohn's disease. This was diagnosed in 1985 at which time he underwent an ileocolectomy for perforation. He had a primary anastomosis at that time. In 2006, he had a recurrent perforation in that area with a recurrent abscess and repeat ileocolectomy by Dr. Parmar. He has been treated with various biologic agents including Humira, as well as azathioprine. In 2012, he was admitted for an intraabdominal abscess in relation to the terminal ileum, which was drained by CAT scan and treated with antibiotics, but did not require surgery. He was on Humira up until June 2018, when he decided to stop it on his own. His azathioprine was stopped by his own accord in 2016 as well. However, despite being on no medication for the Crohn's disease, he did well since 2017 up until the past week or 2. He began having some primarily upper abdominal pain with some tenderness in the right lower quadrant area. He had some nausea and anorexia. He denies any vomiting. He denies any abdominal distention. His bowel movements were basically normal without any significant diarrhea, hematochezia, nor melena. He did not notice any jaundice, fevers, nor weight loss. He did have some chills. He finally came to the ER for evaluation and was found to have an intraabdominal abscess with associated inflammatory changes of the distal small bowel. He subsequently has been admitted. Since being admitted here, he has been feeling better on IV antibiotics. He has not been using any NSAIDs nor any recent antibiotics at home. He does not smoke nor use any significant amounts of alcohol. MEDICATIONS AT HOME: None. PAST MEDICAL HISTORY: Crohn's disease of the small bowel as above with surgery in 1985 and 2006, and the intraabdominal abscess in 2012 that did not require surgery. He has a history of gallstones. He had a negative screening colonoscopy in 2010. He denies history of WI, diabetes, stroke, lung disease or kidney disease. PAST SURGICAL HISTORY: Has included the 2 surgeries for Crohn's disease in 1985 and 2006 with ileocolectomy. Broken jaw surgery. 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 FAMILY HISTORY: Both parents have Crohn's disease. His sister had a duodenal adenocarcinoma and Whipple procedure in 2015. He has a niece with Crohn's disease. 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 He is . He does not smoke nor use any significant amounts of alcohol. REVIEW OF SYSTEMS: CONSTITUTIONAL: Up until the past 10 days or so, he was feeling well with good energy and good appetite. SKIN: No rash. No pruritus. CARDIAC: No chest pain. PULMONARY: No coughing. No hemoptysis. GI: As above. URINARY: No dysuria. No hematuria. He denies any symptoms of pneumaturia. PHYSICAL EXAMINATION: GENERAL: The patient is a pleasant, alert, comfortable-appearing male. SKIN: Warm and dry. HEENT: Anicteric sclerae. NECK: Supple. CHEST: Clear. CARDIAC: Normal S1, S2. ABDOMEN: Soft, nondistended. Bowel sounds are present. He does have some tenderness to palpation in the right lower quadrant, but without any definitive mass. There is no rebound or guarding. EXTREMITIES: Without edema. LABORATORY DATA: White blood cell count 14.7, hemoglobin 12.5, MCV 97, platelets 562,000. PTT 20.1 with INR of 1.7. Normal electrolytes except for potassium of 3.0. BUN 8, creatinine 0.8. Lactic acid level is 0.9. Liver profile is normal. Lipase 12. His CAT scan on admission describes changes in the region of the ileocolic anastomosis and more proximal small bowel. The neoileum is described as some abnormal wall thickening, consistent with inflammatory changes. There also appeared to be a 6 x 5 cm intraabdominal abscess in that area. IMPRESSION: Given the patient's clinical history, this certainly seems consistent with a flare of his underlying Crohn's disease of the distal small bowel with subsequent intraabdominal abscess formation. There does not appear to be a avel perforation given no sign of any free air. At this point, he appears stable and somewhat improved from a clinical standpoint on the IV antibiotics. There does not appear to be any sign of small bowel obstruction. At this point, I would treat the infectious process with antibiotics as you are doing. I would stop the steroids since he has a significant intraabdominal infection and does not need steroids in regard to any recent use of outpatient steroids. I would also not start him on any biologic agents or azathioprine given the acute infection as well. At this point, I would agree with current plans of surgical consultation with drainage of the intraabdominal abscess by Interventional Radiology. I will continue his antibiotics. Depending upon his clinical course, he may need a PICC placed for TPN. He may very well need surgery as well. Hopefully, once the infection is under control and things more stable, we could then contemplate starting him on a new Crohn's disease regimen. He did do well on the Humira and we may want to start him back on something such as that, or consider other treatment options such as Stelara or Entyvio. He will have followup laboratories tomorrow. This has all been discussed with the patient in detail. MD RONAN Wang/DOYLE / [id number] MTDD
[2021-01-29] MEDS: metroNIDAZOLE/NS 500 MG/100 ML PIGGYBACK 100 MG IV ×3 (05:12→20:38)
[2021-01-29 06:14] LABS: MANUAL DIFF FLAG NO
[2021-01-29 06:39] LABS: Basophils Percent Auto 0.1 % (0-2); Eosinophils Percent Auto 0.5 % (0-4); Hematocrit 30.7 % (42-52); Hemoglobin 10.1 g/dl (14.0-18.0); Imm Gran Abs Auto 0.04 X10*3/uL (0.00-0.03); Imm Gran Pct Auto 0.5 % (0.0-0.4); Lymphocytes Percent Auto 11.4 % (20-40); Mean Corpuscular HGB Conc 32.9 g/dl (31.0-36.0); Mean Corpuscular Hemoglobin 31.9 pg (27.0-33.0); Mean Corpuscular Volume 96.8 fL (80-98); Mean Platelet Volume 9.6 fL (9.4-12.4); Monocytes Absolute Auto 0.8 X10*3/uL (0.1-1.2); Monocytes Percent Auto 8.8 % (2-11); Neutrophils Absolute Auto 6.7 X10*3/uL (2.0-8.3); Neutrophils Percent Auto 78.7 % (45-73); Platelet Count 412 X10*3/uL (160-400); Red Blood Count 3.17 X10*6/uL (4.60-5.80); Red Cell Distribution Width 12.8 % (11.0-16.0); White Blood Count 8.5 X10*3/uL (4.8-10.8)
[2021-01-29 07:06] LABS: Iron 137 mcg/dL (45-160); Percent Iron Saturation 84 % (15-50); Total Iron Binding Capacity 164 mcg/dL (228-428); Unsaturated Iron Binding 27 ug/dL
[2021-01-29 07:27] LABS: Anion Gap 11 (12-20); Blood Urea Nitrogen 6 mg/dL (9-16); Calcium 7.7 mg/dL (8.4-10.2); Carbon Dioxide 28 mmol/L (22-29); Chloride 106 mmol/L (96-108); Estimated Glomerular Filt Rate > 60; Ferritin 335 ng/mL (20-250); Glucose Fasting 100 mg/dL (60-99); Potassium 2.9 mmol/L (3.3-5.1); Sodium 142 mmol/L (135-145)
[2021-01-29] MEDS: Potassium Chloride Packet 20 MEQ PACKET 40 MEQ PO ×2 (08:38→20:37)
--- NOTE | 2021-01-29 08:41 | P.PNIM_ITS ---
Subjective Subjective Date of Service: 01/29/21 Interval History: Seen in f/u for intraabdominal abscess related to crohn's disease..s/p IR drainage on 01/28 and feels better today Review of Systems Gen: no fever Resp: no sob, no cough CV: no chest, no IVEY, no leg edema GI: +abdominal pain Neuro: No confusion Physical Exam Vital Signs: Vital Signs: Last Vital Signs Temp 97.6 F 01/29/21 08:00 Pulse 70 01/29/21 08:00 Resp 18 01/29/21 08:00 BP 112/70 01/29/21 08:00 Pulse Ox 96 01/29/21 08:00 Body Mass Index 21.2 Const: Other: General: AO X 3, no acute distress, cachectic Resp: CTA bilateral CVS: S1,S2,RRR GI: +BS, some tenderness, no palpable mass Skin: No rash Neuro: motor grossly intact Psych: appropriate affect Objective Data Current Medications Generic Name Dose Route Start Last Admin Trade Name Freq PRN Reason Stop Dose Admin Acetaminophen 650 mg 01/27/21 21:02 Acetaminophen 325 Mg Tablet PO Q6H PRN Pain, Mild (Pain Scale 1-3) Hydromorphone HCl 0.5 mg 01/27/21 21:03 01/29/21 03:10 Hydromorphone Hcl 0.5 Mg/0.5 Ml Syringe IVPUSH 0.5 mg Q6H PRN Administration Pain, Severe (Pain Scale 7-10) Dextrose/Sodium Chloride 1,000 mls @ 100 mls/hr 01/27/21 21:15 01/28/21 23:53 D51/2ns IVCONT 100 mls/hr .Q10H HERMIN[facility] Administration Metronidazole 500 mg in 100 mls @ 100 mls/hr 01/28/21 06:00 01/29/21 06:26 Flagyl IV Infused Q8H [facility] Infusion Levofloxacin 750 mg in 150 mls @ 100 mls/hr 01/28/21 22:00 01/28/21 23:55 Levaquin IV Infused Q24H [facility] Infusion Pharmacy Consult 1 each 01/27/21 20:57 Consult Rx Perform Med Rec MISCELLANE ONCE PRN Consult order Pharmacy Consult 1 each 01/27/21 21:02 Consult Rx Perform Med Rec MISCELLANE ONCE PRN Consult order Potassium Chloride 40 meq 01/29/21 09:00 01/29/21 08:38 Potassium Chloride Packet 20 Meq Packet PO 01/29/21 21:01 40 meq BID HERMINIA Administration Sodium Chloride 3 ml 01/28/21 00:00 01/29/21 07:16 0.9 % Sodium Chloride Flush 3 Ml Syringe IVFLUSH Not Given QSHIFT [facility] Labs CBC & Chem 7: 01/29/21 05:57 01/29/21 05:57 Microbiology Microbiology Results: Microbiology 01/27/21 21:50 Blood - Venous Blood Culture - Preliminary No growth after 24 hours. 01/27/21 21:53 Blood - Venous Blood Culture - Preliminary No growth after 24 hours. 01/27/21 19:50 Blood - Venous Blood Culture - Preliminary No growth after 24 hours. 01/27/21 19:35 Blood - Venous Blood Culture - Preliminary No growth after 24 hours. 01/28/21 12:40 Abscess Intra-abdominal Gram Stain - Final Assessment and Plan (1) Exacerbation of Crohn's disease with abscess: Status: Acute (2) Intra-abdominal abscess: Status: Acute Assessment and Plan: 65 yo male with longstanding Crohn's of the SI with 2 previous surgeries in 1985 and 2006 with associated ileocolic resections for associated localized perforations and abscesses. He has been on biologics and Azathioprine in the past, but he has been off all therapy since approx 2017 per his own wishes and had been doing well up until the past 10 days. He now presents with pain and the finding of an intraabdominal abscess with inflammatory changes of the distal small bowel and ileocolic anastomosis. He feels a little better after antibiotics and analgesics. plan: Crohn's falare with intraabdominal abscess Surgery eval IV antibiotics Percutaneous drainage 01/28 NO steroid Dilaudid for pain Advance diet today HyOkalemia--oral replacement, check mag
[2021-01-29 09:27] LABS: Magnesium 1.6 mg/dL (1.6-2.6)
--- NOTE | 2021-01-29 09:39 | PM.PNGS ---
Subjective Subjective Date of Service: 01/29/21 Interval history: Feels much better this morning He denies significant pain No fevers reported He looks well Physical Exam Vital Signs: Vital Signs: Last Vital Signs Temp 97.6 F 01/29/21 08:00 Pulse 70 01/29/21 08:00 Resp 18 01/29/21 08:00 BP 112/70 01/29/21 08:00 Pulse Ox 96 01/29/21 08:00 Body Mass Index 21.2 Laboratory Results - last 24 hr 01/28/21 01/29/21 01/29/21 09:36 05:57 05:57 WBC 8.5 RBC 3.17 L Hgb 10.1 L Hct 30.7 L MCV 96.8 MCH 31.9 MCHC 32.9 RDW 12.8 Plt Count 412 H MPV 9.6 Immature Gran % (A uto) 0.5 H Neut % (Auto) 78.7 H Lymph % (Auto) 11.4 L [place] % (Auto) 8.8 Eos % (Auto) 0.5 Baso % (Auto) 0.1 Lymph # (Auto) 1.0 L [place] # (Auto) 0.8 Eos # (Auto) 0.0 Baso # (Auto) 0.0 Abs Immat Gran (au to) 0.04 H Absolute Neuts (au to) 6.7 Absolute Nucleated RBC 0.000 Nucleated RBC % (a uto) 0.0 PT 20.1 H INR 1.7 H APTT 39.6 H Sodium Potassium Chloride Carbon Dioxide Anion Gap BUN Creatinine Estim Creat Clear Calc Estimated GFR Fasting Glucose Calcium Magnesium Iron 137 TIBC 164 L % Saturation 84 H Unsat Iron Binding 27 Ferritin 335 H 01/29/21 05:57 WBC RBC Hgb Hct MCV MCH MCHC RDW Plt Count MPV Immature Gran % (A uto) Neut % (Auto) Lymph % (Auto) [place] % (Auto) Eos % (Auto) Baso % (Auto) Lymph # (Auto) [place] # (Auto) Eos # (Auto) Baso # (Auto) Abs Immat Gran (au to) Absolute Neuts (au to) Absolute Nucleated RBC Nucleated RBC % (a uto) PT INR APTT Sodium 142 Potassium 2.9 L Chloride 106 Carbon Dioxide 28 Anion Gap 11 L BUN 6 L Creatinine 0.73 Estim Creat Clear Calc 93.0 Estimated GFR > 60 Fasting Glucose 100 H Calcium 7.7 L Magnesium 1.6 Iron TIBC % Saturation Unsat Iron Binding Ferritin Const: General: comfortable and no acute distress Resp: Effort & Inspection: normal respiratory effort Cardio: Rhythm: regular rhythm GI: Other: Soft, nondistended, no guarding rebound, mild tenderness around drain site, drain with scanty purulent output, much less compared to we yesterday Progress Note: A&P Assessment and plan (1) Intra-abdominal abscess: Status: Acute Assessment and Plan: Status post CT drainage Doing well His drain output has decreased compared to yesterday Await cultures Advance diet as tolerated Looks well Exam benign Replace potassium Fall Risk Details Current Medications: Current Medications Generic Name Dose Route Start Last Admin Trade Name Freq PRN Reason Stop Dose Admin status post seton drain Acetaminophen 650 mg 01/27/21 21:02 Acetaminophen 325 Mg Tablet PO Q6H PRN Pain, Mild (Pain Scale 1-3) Hydromorphone HCl 0.5 mg 01/27/21 21:03 01/29/21 03:10 Hydromorphone Hcl 0.5 Mg/0.5 Ml Syringe IVPUSH 0.5 mg Q6H PRN Administration Pain, Severe (Pain Scale 7-10) Dextrose/Sodium Chloride 1,000 mls @ 100 mls/hr 01/27/21 21:15 01/28/21 23:53 D51/2ns IVCONT 100 mls/hr .Q10H [facility] Administration Metronidazole 500 mg in 100 mls @ 100 mls/hr 01/28/21 06:00 01/29/21 06:26 Flagyl IV Infused Q8H [facility] Infusion Levofloxacin 750 mg in 150 mls @ 100 mls/hr 01/28/21 22:00 01/28/21 23:55 Levaquin IV Infused Q24H [facility] Infusion Pharmacy Consult 1 each 01/27/21 20:57 Consult Rx Perform Med Rec MISCELLANE ONCE PRN Consult order Pharmacy Consult 1 each 01/27/21 21:02 Consult Rx Perform Med Rec MISCELLANE ONCE PRN Consult order Potassium Chloride 40 meq 01/29/21 09:00 01/29/21 08:38 Potassium Chloride Packet 20 Meq Packet PO 01/29/21 21:01 40 meq BID [facility] Administration Sodium Chloride 3 ml 01/28/21 00:00 01/29/21 07:16 0.9 % Sodium Chloride Flush 3 Ml Syringe IVFLUSH Not Given QSHIFT [facility] Time Spent With Patient Time: Total time spent is greater than 50% in coordination of care (as documented) at patient's floor/unit and/or counseling patient: Time with patient: 15 - 24 minutes
[2021-01-29 09:46] LABS: Folate 8.2 ng/mL (> or = 4.0); Vitamin B12 < 146 pg/mL (200-900)
[2021-01-29] MEDS: Dextrose 5 % and 0.45 % NaCl 1,000 ML 100 ML IVCONT ×2 (10:14→20:38)
--- NOTE | 2021-01-29 15:45 | PM.EVENT ---
Event Note Date of Service: 01/29/21 Event Note: he continues to do well denies abdl pain drain output scanty abd soft dw Dr. Hernandez - to start steroids, then biologics advance diet likely ok to go home over the weekend with drain explained plan to pt
--- NOTE | 2021-01-29 20:39 | P.PNGI_ITS ---
Subjective Subjective Date of Service: 01/29/21 Interval History: Feeling much better after IR drainage of abscess. Less abdominal discomfort. No diarrhea. Tolerating liquids Physical Exam Vital Signs: Vital Signs: Last Vital Signs Temp 97.8 F 01/29/21 19:57 Pulse 71 01/29/21 19:57 Resp 14 01/29/21 19:57 BP 120/71 01/29/21 19:57 Pulse Ox 97 01/29/21 19:57 Body Mass Index 21.2 Const: General: cooperative, healthy appearing, comfortable, no acute distress and alert GI: Inspection: Yes normal to inspection and Yes other (Drain with pinkish/purulent drainage) Palpation (GI): Soft to palpation and Tenderness to palpation present (GI) periumbilically Percussion: Yes normal to percussion Auscultation: normal bowel sounds Objective Data Labs CBC & Chem 7: 01/29/21 05:57 01/29/21 05:57 Labs: Laboratory Results - last 24 hr 01/29/21 01/29/21 01/29/21 05:57 05:57 05:57 WBC 8.5 RBC 3.17 L Hgb 10.1 L Hct 30.7 L MCV 96.8 MCH 31.9 MCHC 32.9 RDW 12.8 Plt Count 412 H MPV 9.6 Immature Gran % (Auto) 0.5 H Neut % (Auto) 78.7 H Lymph % (Auto) 11.4 L [place] % (Auto) 8.8 Eos % (Auto) 0.5 Baso % (Auto) 0.1 Lymph # (Auto) 1.0 L [place] # (Auto) 0.8 Eos # (Auto) 0.0 Baso # (Auto) 0.0 Abs Immat Gran (auto) 0.04 H Absolute Neuts (auto) 6.7 Absolute Nucleated RBC 0.000 Nucleated RBC % (auto) 0.0 Sodium Potassium Chloride Carbon Dioxide Anion Gap BUN Creatinine Estim Creat Clear Calc Estimated GFR Fasting Glucose Calcium Magnesium Iron 137 TIBC 164 L % Saturation 84 H Unsat Iron Binding 27 Ferritin 335 H Vitamin B12 < 146 L Folate 8.2 01/29/21 05:57 WBC RBC Hgb Hct MCV MCH MCHC RDW Plt Count MPV Immature Gran % (Auto) Neut % (Auto) Lymph % (Auto) [place] % (Auto) Eos % (Auto) Baso % (Auto) Lymph # (Auto) [place] # (Auto) Eos # (Auto) Baso # (Auto) Abs Immat Gran (auto) Absolute Neuts (auto) Absolute Nucleated RBC Nucleated RBC % (auto) Sodium 142 Potassium 2.9 L Chloride 106 Carbon Dioxide 28 Anion Gap 11 L BUN 6 L Creatinine 0.73 Estim Creat Clear Calc 93.0 Estimated GFR > 60 Fasting Glucose 100 H Calcium 7.7 L Magnesium 1.6 Iron TIBC % Saturation Unsat Iron Binding Ferritin Vitamin B12 Folate Microbiology Microbiology Results: Microbiology 01/28/21 12:40 Abscess Intra-abdominal Gram Stain - Final 01/28/21 12:40 Abscess Intra-abdominal Routine Culture - Final 01/28/21 12:40 Abscess Intra-abdominal Anaerobic Culture - Preliminary Culture in progress. 01/27/21 21:50 Blood - Venous Blood Culture - Preliminary No growth after 24 hours. 01/27/21 21:53 Blood - Venous Blood Culture - Preliminary No growth after 24 hours. 01/27/21 19:50 Blood - Venous Blood Culture - Preliminary No growth after 24 hours. 01/27/21 19:35 Blood - Venous Blood Culture - Preliminary No growth after 24 hours. Progress Note: A&P Assessment and plan (1) Vitamin B 12 deficiency: Problem details: Imp: Vitamin B12 deficiency with anemia in relation to his Crohn's with SI disease and previous surgeries. Rec: Parenteral B12 replacement Status: Acute (2) Exacerbation of Crohn's disease with abscess: Problem details: Imp: Clinically improved after IR drainage and IV antibiotics. Rec: Will start some steroids IV for 48-72 hours to try to decrease inflammatory component of his Crohn's to hopefully allow beginning of the resolution and healing of the ileitis. If things continue to improve will then plan to change to oral prednisone before discharge. Advance to low residue diet as per surgery. Status: Acute Fall Risk Details Current Medications: Current Medications Generic Name Dose Route Start Last Admin Trade Name Freq PRN Reason Stop Dose Admin Acetaminophen 650 mg 01/27/21 21:02 Acetaminophen 325 Mg Tablet PO Q6H PRN Pain, Mild (Pain Scale 1-3) Hydromorphone HCl 0.5 mg 01/27/21 21:03 01/29/21 12:02 Hydromorphone Hcl 0.5 Mg/0.5 Ml Syringe IVPUSH 0.5 mg Q6H PRN Administration Pain, Severe (Pain Scale 7-10) Dextrose/Sodium Chloride 1,000 mls @ 100 mls/hr 01/27/21 21:15 01/29/21 20:38 D51/2ns IVCONT 100 mls/hr .Q10H [facility] Administration Metronidazole 500 mg in 100 mls @ 100 mls/hr 01/28/21 06:00 01/29/21 20:38 Flagyl IV 100 mls/hr Q8H [facility] Administration Levofloxacin 750 mg in 150 mls @ 100 mls/hr 01/28/21 22:00 01/28/21 23:55 Levaquin IV Infused Q24H [facility] Infusion Pharmacy Consult 1 each 01/27/21 20:57 Consult Rx Perform Med Rec MISCELLANE ONCE PRN Consult order Pharmacy Consult 1 each 01/27/21 21:02 Consult Rx Perform Med Rec MISCELLANE ONCE PRN Consult order Potassium Chloride 40 meq 01/29/21 09:00 01/29/21 20:37 Potassium Chloride Packet 20 Meq Packet PO 01/29/21 21:01 40 meq BID [facility] Administration Sodium Chloride 3 ml 01/28/21 00:00 01/29/21 15:03 0.9 % Sodium Chloride Flush 3 Ml Syringe IVFLUSH Not Given QSHIFT [facility] Time Spent With Patient Time: Total time spent is greater than 50% in coordination of care (as documented) at patient's floor/unit and/or counseling patient: Time with patient: 25 - 35 minutes
[2021-01-29] MEDS: levoFLOXacin/D5W 750 MG/150 ML PIGGYBACK 100 MG IV (22:04)
[2021-01-29] MEDS: Cyanocobalamin (Vitamin B-12) 1,000 MCG/ML VIAL 1000 MCG IM (22:27)
[2021-01-30 04:00] VITALS: BP 117/62; RESP 20; TEMP 36.4; O2SAT 98
[2021-01-30] MEDS: metroNIDAZOLE/NS 500 MG/100 ML PIGGYBACK 100 MG IV ×3 (05:58→21:57)
[2021-01-30 07:01] LABS: MANUAL DIFF FLAG NO
[2021-01-30 07:12] LABS: Basophils Percent Auto 0.3 % (0-2); Eosinophils Absolute Auto 0.1 X10*3/uL (0.0-0.4); Eosinophils Percent Auto 1.8 % (0-4); Hematocrit 33.3 % (42-52); Hemoglobin 10.6 g/dl (14.0-18.0); Imm Gran Abs Auto 0.02 X10*3/uL (0.00-0.03); Imm Gran Pct Auto 0.3 % (0.0-0.4); Lymphocytes Absolute Auto 0.8 X10*3/uL (1.2-4.9); Mean Corpuscular HGB Conc 31.8 g/dl (31.0-36.0); Mean Corpuscular Hemoglobin 31.5 pg (27.0-33.0); Mean Corpuscular Volume 98.8 fL (80-98); Mean Platelet Volume 9.5 fL (9.4-12.4); Monocytes Absolute Auto 0.7 X10*3/uL (0.1-1.2); Monocytes Percent Auto 9.8 % (2-11); Neutrophils Absolute Auto 5.1 X10*3/uL (2.0-8.3); Neutrophils Percent Auto 75.8 % (45-73); Platelet Count 431 X10*3/uL (160-400); Red Blood Count 3.37 X10*6/uL (4.60-5.80); Red Cell Distribution Width 13.2 % (11.0-16.0); White Blood Count 6.7 X10*3/uL (4.8-10.8)
[2021-01-30 07:18] VITALS: BP 130/77; PULSE 110; RESP 19; TEMP 36.4; O2SAT 97
[2021-01-30 07:39] LABS: Anion Gap 13 (12-20); Blood Urea Nitrogen 5 mg/dL (9-16); Calcium 7.8 mg/dL (8.4-10.2); Carbon Dioxide 29 mmol/L (22-29); Chloride 104 mmol/L (96-108); Estimated Glomerular Filt Rate > 60; Glucose Fasting 93 mg/dL (60-99); Potassium 3.2 mmol/L (3.3-5.1); Sodium 143 mmol/L (135-145)
[2021-01-30 08:21] LABS: Magnesium 1.6 mg/dL (1.6-2.6)
[2021-01-30] MEDS: 0.9 % Sodium Chloride Flush 3 ML SYRINGE IVFLUSH ×3 (08:33→23:34)
--- NOTE | 2021-01-30 08:35 | PM.PNGS ---
Subjective Subjective Date of Service: 01/30/21 Interval history: Keith feels much improved today with minimal abdominal pain other than from the drain site. He tolerated clear liquids and is eager to advance to regular diet. Physical Exam Vital Signs: Vital Signs: Last Vital Signs Temp 97.6 F 01/30/21 07:18 Pulse 110 H 01/30/21 07:18 Resp 19 01/30/21 07:18 BP 130/77 01/30/21 07:18 Pulse Ox 97 01/30/21 07:18 Body Mass Index 21.2 Const: General: cooperative, comfortable, no acute distress, alert and awake Orientation/consciousness: patient oriented x3 Resp: Effort & Inspection: normal respiratory effort GI: Other: IR drain intact producing purulence fluid Inspection: Yes normal to inspection Palpation (GI): Soft to palpation, nontender, no guarding and not rigid Skin: General skin exam: no rashes or lesions noted Neuro: General: patient oriented x3 Extrem: General: Yes no clubbing, cyanosis or edema Progress Note: A&P Assessment and plan (1) Exacerbation of Crohn's disease with abscess: Status: Acute Assessment and Plan: 65-year-old male patient with Crohn's flare an abscess status post IR drainage. Patient is much improved and is tolerating clear liquid diet. Currently on Levaquin and Flagyl. Wound cultures show a mixed infection. Agree with advancing to a low residue diet. Fall Risk Details Current Medications: Current Medications Generic Name Dose Route Start Last Admin Trade Name Freq PRN Reason Stop Dose Admin Acetaminophen 650 mg 01/27/21 21:02 Acetaminophen 325 Mg Tablet PO Q6H PRN Pain, Mild (Pain Scale 1-3) Cyanocobalamin 1,000 mcg 01/29/21 21:00 01/29/21 22:27 Cyanocobalamin (Vitamin B-12) 1,000 Mcg/Ml Vial IM 02/12/21 21:01 1,000 mcg Q7D [facility] Administration Hydromorphone HCl 0.5 mg 01/27/21 21:03 01/29/21 12:02 Hydromorphone Hcl 0.5 Mg/0.5 Ml Syringe IVPUSH 0.5 mg Q6H PRN Administration Pain, Severe (Pain Scale 7-10) Dextrose/Sodium Chloride 1,000 mls @ 100 mls/hr 01/27/21 21:15 01/30/21 07:18 D51/2ns IVCONT Infused .Q10H [facility] Infusion Metronidazole 500 mg in 100 mls @ 100 mls/hr 01/28/21 06:00 01/30/21 07:18 Flagyl IV Infused Q8H [facility] Infusion Levofloxacin 750 mg in 150 mls @ 100 mls/hr 01/28/21 22:00 01/30/21 00:15 Levaquin IV Infused Q24H [facility] Infusion Hydrocortisone Sodium 50 mls @ 100 mls/hr 01/30/21 08:55 Succinate 60 mg/ Sodium IV Chloride Q8H [facility] Pharmacy Consult 1 each 01/27/21 20:57 Consult Rx Perform Med Rec MISCELLANE ONCE PRN Consult order Pharmacy Consult 1 each 01/27/21 21:02 Consult Rx Perform Med Rec MISCELLANE ONCE PRN Consult order Sodium Chloride 3 ml 01/28/21 00:00 01/30/21 00:22 0.9 % Sodium Chloride Flush 3 Ml Syringe IVFLUSH Not Given QSHIFT [facility] Time Spent With Patient Time: Total time spent is greater than 50% in coordination of care (as documented) at patient's floor/unit and/or counseling patient: Time with patient: 15 - 24 minutes
[2021-01-30] MEDS: Dextrose 5 % and 0.45 % NaCl 1,000 ML 100 ML IVCONT (09:05)
--- NOTE | 2021-01-30 10:09 | P.PNIM_ITS ---
Subjective Subjective Date of Service: 01/30/21 Interval History: Patient feeling better this morning only abdominal discomfort at site of incision, denies nausea vomiting fever chills. ROS General no headache no dizziness no fever chills. CVS no chest pain, no palpitation. Respiratory no cough no shortness of breath Gastrointestinal no nausea, no vomiting, no diarrhea Physical Exam Vital Signs: Vital Signs: Last Vital Signs Temp 97.6 F 01/30/21 07:18 Pulse 110 H 01/30/21 07:18 Resp 19 01/30/21 07:18 BP 130/77 01/30/21 07:18 Pulse Ox 97 01/30/21 07:18 Body Mass Index 21.2 General no acute distress. Neck is supple no JVD. CVS regular rate rhythm, Respiratory lungs clear to auscultation, no respiratory distress, no wheeze, no rhonchi. Gastrointestinal abdomen soft, mild tenderness at site of RIP drain, few mL serosanguineous drainage, bowel sounds audible Extremities no clubbing cyanosis or edema. Neuro nonfocal Skin no rash Objective Data Current Medications Generic Name Dose Route Start Last Admin Trade Name Freq PRN Reason Stop Dose Admin Acetaminophen 650 mg 01/27/21 21:02 Acetaminophen 325 Mg Tablet PO Q6H PRN Pain, Mild (Pain Scale 1-3) Cyanocobalamin 1,000 mcg 01/29/21 21:00 01/29/21 22:27 Cyanocobalamin (Vitamin B-12) 1,000 Mcg/Ml Vial IM 02/12/21 21:01 1,000 mcg Q7D [facility] Administration Hydromorphone HCl 0.5 mg 01/27/21 21:03 01/29/21 12:02 Hydromorphone Hcl 0.5 Mg/0.5 Ml Syringe IVPUSH 0.5 mg Q6H PRN Administration Pain, Severe (Pain Scale 7-10) Dextrose/Sodium Chloride 1,000 mls @ 100 mls/hr 01/27/21 21:15 01/30/21 09:05 D51/2ns IVCONT 100 mls/hr .Q10H [facility] Administration Metronidazole 500 mg in 100 mls @ 100 mls/hr 01/28/21 06:00 01/30/21 07:18 Flagyl IV Infused Q8H [facility] Infusion Levofloxacin 750 mg in 150 mls @ 100 mls/hr 01/28/21 22:00 01/30/21 00:15 Levaquin IV Infused Q24H [facility] Infusion Hydrocortisone Sodium 50 mls @ 100 mls/hr 01/30/21 08:55 01/30/21 08:59 Succinate 60 mg/ Sodium IV Infused Chloride Q8H [facility] Infusion Pharmacy Consult 1 each 01/27/21 20:57 Consult Rx Perform Med Rec MISCELLANE ONCE PRN Consult order Pharmacy Consult 1 each 01/27/21 21:02 Consult Rx Perform Med Rec MISCELLANE ONCE PRN Consult order Sodium Chloride 3 ml 01/28/21 00:00 01/30/21 08:33 0.9 % Sodium Chloride Flush 3 Ml Syringe IVFLUSH 3 ml QSHIFT [facility] Administration Labs CBC & Chem 7: 01/30/21 06:12 01/30/21 06:12 Microbiology Microbiology Results: Microbiology 01/27/21 21:50 Blood - Venous Blood Culture - Preliminary No growth after 48 hours. 01/27/21 21:53 Blood - Venous Blood Culture - Preliminary No growth after 48 hours. 01/27/21 19:50 Blood - Venous Blood Culture - Preliminary No growth after 48 hours. 01/27/21 19:35 Blood - Venous Blood Culture - Preliminary No growth after 48 hours. 01/28/21 12:40 Abscess Intra-abdominal Gram Stain - Final 01/28/21 12:40 Abscess Intra-abdominal Routine Culture - Final 01/28/21 12:40 Abscess Intra-abdominal Anaerobic Culture - Preliminary Culture in progress. Assessment and Plan (1) Intra-abdominal abscess: Status: Acute (2) Exacerbation of Crohn's disease with abscess: Status: Acute (3) Vitamin B 12 deficiency: Problem details: Imp: Vitamin B12 deficiency with anemia in relation to his Crohn's with SI disease and previous surgeries. Rec: Parenteral B12 replacement Status: Acute Assessment and Plan: 65 yo male with longstanding Crohn's of the SI with 2 previous surgeries in 1985 and 2006 with associated ileocolic resections for associated localized perforations and abscesses. He has been on biologics and Azathioprine in the past, but he has been off all therapy since approx 2018 per his own wishes and had been doing well up until the past 10 days. He now presents with pain and the finding of an intraabdominal abscess with inflammatory changes of the distal small bowel and ileocolic anastomosis. He feels a little better after ant ibiotics and analgesics. Crohn's flare with intra-abdominal abscess Status post percutaneous drainage by IR on 01/28, currently on IV Flagyl and Levaquin, patient seen by Dr. Hernandez he started patient on IV steroids for 48-72 hours Will advance diet to low residue as per surgical recommendation Will DC IV fluid Vitamin B12 deficiency secondary to Crohn's and prior surgery Continue B12 replacement Hypokalemia potassium remained low will replace and follow BMP
[2021-01-30] MEDS: Potassium Chloride/H20 10 MEQ/100 ML PIGGYBACK 100 MEQ IV ×2 (10:42→11:50)
[2021-01-30 11:44] VITALS: BP 133/79; PULSE 102; RESP 17; TEMP 36.3; O2SAT 97
[2021-01-30 15:44] VITALS: BP 119/77; PULSE 96; RESP 20; TEMP 36.2; O2SAT 97
[2021-01-30 19:07] VITALS: BP 125/76; PULSE 75; RESP 20; TEMP 36.6; O2SAT 98
[2021-01-30] MEDS: levoFLOXacin/D5W 750 MG/150 ML PIGGYBACK 100 MG IV (22:40)
[2021-01-30 23:49] VITALS: BP 115/74; PULSE 73; RESP 16; TEMP 36.6; O2SAT 97
[2021-01-31 04:00] VITALS: BP 109/66; PULSE 78; RESP 16; TEMP 36.7; O2SAT 96
[2021-01-31] MEDS: metroNIDAZOLE/NS 500 MG/100 ML PIGGYBACK 100 MG IV ×3 (06:04→21:15)
[2021-01-31 08:00] VITALS: BP 122/67; PULSE 97; RESP 18; TEMP 36.1; O2SAT 95
--- NOTE | 2021-01-31 08:24 | PM.PNGS ---
Subjective Subjective Date of Service: 01/31/21 Interval history: Feels much improved with no abdominal pain. He tolerated the regular diet without nausea or vomiting. He denies diarrhea. Physical Exam Vital Signs: Vital Signs: Last Vital Signs Temp 97.0 F 01/31/21 08:00 Pulse 97 01/31/21 08:00 Resp 18 01/31/21 08:00 BP 122/67 01/31/21 08:00 Pulse Ox 95 01/31/21 08:00 Body Mass Index 21.2 Const: General: cooperative, healthy appearing, comfortable, no acute distress and well developed Resp: Effort & Inspection: normal respiratory effort GI: Other: Soft, nondistended, nontender, IR drain is intact draining scant amount of purulence fluid Skin: Other: Warm, dry, no rash Extrem: General: Yes no clubbing, cyanosis or edema Progress Note: A&P Assessment and plan (1) Exacerbation of Crohn's disease with abscess: Status: Acute (2) Intra-abdominal abscess: Status: Acute Assessment and Plan: 65-year-old male status post IR drainage of a Crohn's related abscess. He feels much improved in the IR drain is producing only small amounts of fluid. He is now tolerating a regular diet. He remains on Levaquin and Flagyl. Wound cultures confirmed mixed gastrointestinal samantha. Ready for discharge from surgical standpoint. Drain can be removed as an outpatient. Fall Risk Details Current Medications: Current Medications Generic Name Dose Route Start Last Admin Trade Name Freq PRN Reason Stop Dose Admin Acetaminophen 650 mg 01/27/21 21:02 Acetaminophen 325 Mg Tablet PO Q6H PRN Pain, Mild (Pain Scale 1-3) Cyanocobalamin 1,000 mcg 01/29/21 21:00 01/29/21 22:27 Cyanocobalamin (Vitamin B-12) 1,000 Mcg/Ml Vial IM 02/12/21 21:01 1,000 mcg Q7D HERMINIA Administration Hydromorphone HCl 0.5 mg 01/27/21 21:03 01/29/21 12:02 Hydromorphone Hcl 0.5 Mg/0.5 Ml Syringe IVPUSH 0.5 mg Q6H PRN Administration Pain, Severe (Pain Scale 7-10) Metronidazole 500 mg in 100 mls @ 100 mls/hr 01/28/21 06:00 01/31/21 07:08 Flagyl IV Infused Q8H [facility] Infusion Levofloxacin 750 mg in 150 mls @ 100 mls/hr 01/28/21 22:00 01/31/21 00:28 Levaquin IV Infused Q24H [facility] Infusion Hydrocortisone Sodium 50 mls @ 100 mls/hr 01/30/21 08:55 01/31/21 03:55 Succinate 60 mg/ Sodium IV Infused Chloride Q8H [facility] Infusion Pharmacy Consult 1 each 01/27/21 20:57 Consult Rx Perform Med Rec MISCELLANE ONCE PRN Consult order Pharmacy Consult 1 each 01/27/21 21:02 Consult Rx Perform Med Rec MISCELLANE ONCE PRN Consult order Sodium Chloride 3 ml 01/28/21 00:00 01/30/21 23:34 0.9 % Sodium Chloride Flush 3 Ml Syringe IVFLUSH 3 ml QSHIFT [facility] Administration Time Spent With Patient Time: Total time spent is greater than 50% in coordination of care (as documented) at patient's floor/unit and/or counseling patient: Time with patient: 15 - 24 minutes
[2021-01-31] MEDS: 0.9 % Sodium Chloride Flush 3 ML SYRINGE IVFLUSH ×3 (09:21→21:16)
--- NOTE | 2021-01-31 11:02 | HO.PM.IMPN ---
Subjective Subjective Date of Service: 01/31/21 Interval History: Patient feeling significantly better this morning no abdominal pain, tolerating diet, minimal output from RIP drain. ROS General no headache no dizziness no fever chills. CVS no chest pain, no palpitation. Respiratory no cough no shortness of breath Gastrointestinal no nausea, no abdominal pain, no vomiting, no diarrhea Physical Exam Vital Signs: Vital Signs: Last Vital Signs Temp 97.0 F 01/31/21 08:00 Pulse 97 01/31/21 08:00 Resp 18 01/31/21 08:00 BP 122/67 01/31/21 08:00 Pulse Ox 95 01/31/21 08:00 Body Mass Index 21.2 General no acute distress. Neck is supple no JVD. CVS regular rate rhythm, Respiratory lungs clear to auscultation, no respiratory distress, no wheeze, no rhonchi. Gastrointestinal abdomen soft, nontender, few mL serosanguineous drainage, bowel sounds audible Extremities no clubbing cyanosis or edema. Neuro nonfocal Skin no rash Objective Data Current Medications Generic Name Dose Route Start Last Admin Trade Name Freq PRN Reason Stop Dose Admin Acetaminophen 650 mg 01/27/21 21:02 Acetaminophen 325 Mg Tablet PO Q6H PRN Pain, Mild (Pain Scale 1-3) Cyanocobalamin 1,000 mcg 01/29/21 21:00 01/29/21 22:27 Cyanocobalamin (Vitamin B-12) 1,000 Mcg/Ml Vial IM 02/12/21 21:01 1,000 mcg Q7D [facility] Administration Hydromorphone HCl 0.5 mg 01/27/21 21:03 01/29/21 12:02 Hydromorphone Hcl 0.5 Mg/0.5 Ml Syringe IVPUSH 0.5 mg Q6H PRN Administration Pain, Severe (Pain Scale 7-10) Metronidazole 500 mg in 100 mls @ 100 mls/hr 01/28/21 06:00 01/31/21 07:08 Flagyl IV Infused Q8H [facility] Infusion Levofloxacin 750 mg in 150 mls @ 100 mls/hr 01/28/21 22:00 01/31/21 00:28 Levaquin IV Infused Q24H [facility] Infusion Hydrocortisone Sodium 50 mls @ 100 mls/hr 01/30/21 08:55 01/31/21 10:04 Succinate 60 mg/ Sodium IV Infused Chloride Q8H [facility] Infusion Pharmacy Consult 1 each 01/27/21 20:57 Consult Rx Perform Med Rec MISCELLANE ONCE PRN Consult order Pharmacy Consult 1 each 01/27/21 21:02 Consult Rx Perform Med Rec MISCELLANE ONCE PRN Consult order Sodium Chloride 3 ml 01/28/21 00:00 01/31/21 09:21 0.9 % Sodium Chloride Flush 3 Ml Syringe IVFLUSH 3 ml QSHIFT [facility] Administration Labs CBC & Chem 7: 01/30/21 06:12 01/30/21 06:12 Microbiology Microbiology Results: Microbiology 01/28/21 12:40 Abscess Intra-abdominal Gram Stain - Final 01/28/21 12:40 Abscess Intra-abdominal Routine Culture - Final 01/28/21 12:40 Abscess Intra-abdominal Anaerobic Culture - Preliminary Culture in progress. 01/27/21 21:50 Blood - Venous Blood Culture - Preliminary No growth after 48 hours. 01/27/21 21:53 Blood - Venous Blood Culture - Preliminary No growth after 48 hours. 01/27/21 19:50 Blood - Venous Blood Culture - Preliminary No growth after 48 hours. 01/27/21 19:35 Blood - Venous Blood Culture - Preliminary No growth after 48 hours. Assessment and Plan (1) Intra-abdominal abscess: Status: Acute (2) Exacerbation of Crohn's disease with abscess: Status: Acute (3) Vitamin B 12 deficiency: Problem details: Imp: Vitamin B12 deficiency with anemia in relation to his Crohn's with SI disease and previous surgeries. Rec: Parenteral B12 replacement Status: Acute Assessment and Plan: 65 yo male with longstanding Crohn's of the SI with 2 previous surgeries in 1985 and 2006 with associated ileocolic resections for associated localized perforations and abscesses. He has been on biologics and Azathioprine in the past, but he has been off all therapy since approx 2018 per his own wishes and had been doing well up until the past 10 days. He now presents with pain and the finding of an intraabdominal abscess with inflammatory changes of the distal small bowel and ileocolic anastomosis. He feels a little better after antibiotics and analgesics. Crohn's flare with intra-abdominal abscess Patient feeling significantly better no abdominal pain tolerating regular diet minimal serosanguineous drainage in RIP drain Status post percutaneous drainage by IR on 01/28, currently on IV Flagyl and Levaquin day 01/20 , abscess culture grew mixed gastrointestinal samantha, blood cultures negative , patient seen by Dr. Hernandez he started patient on IV hydrocortisone day 2 will transition to by mouth steroids tomorrow morning and possible discharge home Will transition to by mouth antibiotics at discharge, outpatient follow-up with General surgery Vitamin B12 deficiency secondary to Crohn's and prior surgery Continue B12 replacement Hypokalemia being replaced follow BMP DVT prophylaxis ambulate ad-marine
[2021-01-31 12:00] VITALS: BP 120/66; PULSE 80; RESP 17; TEMP 36.2; O2SAT 97
[2021-01-31 15:34] VITALS: BP 116/72; PULSE 76; RESP 15; TEMP 36.2; O2SAT 97
[2021-01-31 19:01] VITALS: BP 118/66; PULSE 69; RESP 15; TEMP 36.3; O2SAT 96
[2021-01-31] MEDS: levoFLOXacin/D5W 750 MG/150 ML PIGGYBACK 100 MG IV (22:20)
[2021-01-31 23:17] VITALS: BP 119/77; PULSE 68; RESP 18; TEMP 36.7; O2SAT 97
[2021-02-01 04:00] VITALS: BP 113/64; PULSE 78; RESP 14; TEMP 37.1; O2SAT 97
[2021-02-01] MEDS: metroNIDAZOLE/NS 500 MG/100 ML PIGGYBACK 100 MG IV ×3 (05:52→21:30)
[2021-02-01 07:54] VITALS: BP 119/76; PULSE 74; RESP 17; TEMP 36.1; O2SAT 98
[2021-02-01 08:10] LABS: Anion Gap 16 (12-20); Blood Urea Nitrogen 11 mg/dL (9-16); Calcium 7.6 mg/dL (8.4-10.2); Carbon Dioxide 31 mmol/L (22-29); Chloride 99 mmol/L (96-108); Creatinine Clr Calc Pharmacy 81.8; Estimated Glomerular Filt Rate > 60; Glucose Random 109 mg/dL (60-115); Magnesium 1.3 mg/dL (1.6-2.6); Potassium 2.8 mmol/L (3.3-5.1); Sodium 143 mmol/L (135-145)
[2021-02-01] MEDS: 0.9 % Sodium Chloride Flush 3 ML SYRINGE IVFLUSH ×2 (09:05→16:25)
[2021-02-01] MEDS: Potassium Chloride ER 20 MEQ TAB.ER.PRT 40 MEQ PO (10:56)
[2021-02-01] MEDS: Potassium Chloride/H20 10 MEQ/100 ML PIGGYBACK 100 MEQ IV ×2 (10:57→11:55)
[2021-02-01 11:46] VITALS: BP 142/76; PULSE 74; RESP 16; TEMP 36.4; O2SAT 98
--- NOTE | 2021-02-01 11:51 | PM.PNGS ---
Subjective Subjective Date of Service: 02/01/21 Interval history: Feels well, no new complaints. He is aware that his abscess culture is growing a resistant strain of bacteria. Awaiting Infectious Disease advice. Physical Exam Vital Signs: Vital Signs: Last Vital Signs Temp 97.0 F 02/01/21 07:54 Pulse 74 02/01/21 07:54 Resp 17 02/01/21 07:54 BP 119/76 02/01/21 07:54 Pulse Ox 98 02/01/21 07:54 Body Mass Index 21.2 Const: General: healthy appearing, comfortable and alert GI: Other: Soft, flat, nontender. IR drain output is minimal and slightly turbid Skin: Other: Normal color, warm and dry Psych: Insight: Good insight present (Psych) Judgement: Good judgement present (Psych) Progress Note: A&P Assessment and plan (1) Exacerbation of Crohn's disease with abscess: Status: Acute Assessment and Plan: He is doing well with regard to his history of Crohn's disease and with treatment for intra-abdominal abscess. The plan is for discharge home on antibiotics with the drain in place. He is on Levaquin and Flagyl. Abscess cultures and demonstrate a likely resistant strain of Bacteroides fragilis. Infectious Disease consultation is pending. Appears stable for discharge home from general surgery point of view if okay from Infectious Disease viewpoint. Fall Risk Details Current Medications: Current Medications Generic Name Dose Route Start Last Admin Trade Name Freq PRN Reason Stop Dose Admin Acetaminophen 650 mg 01/27/21 21:02 Acetaminophen 325 Mg Tablet PO Q6H PRN Pain, Mild (Pain Scale 1-3) Cyanocobalamin 1,000 mcg 01/29/21 21:00 01/29/21 22:27 Cyanocobalamin (Vitamin B-12) 1,000 Mcg/Ml Vial IM 02/12/21 21:01 1,000 mcg Q7D HERMINIA Administration Hydromorphone HCl 0.5 mg 01/27/21 21:03 01/29/21 12:02 Hydromorphone Hcl 0.5 Mg/0.5 Ml Syringe IVPUSH 0.5 mg Q6H PRN Administration Pain, Severe (Pain Scale 7-10) Metronidazole 500 mg in 100 mls @ 100 mls/hr 01/28/21 06:00 02/01/21 06:55 Flagyl IV Infused Q8H HERMINIA Infusion Levofloxacin 750 mg in 150 mls @ 100 mls/hr 01/28/21 22:00 02/01/21 00:13 Levaquin IV Infused Q24H HERMINIA Infusion Hydrocortisone Sodium 50 mls @ 100 mls/hr 01/30/21 08:55 02/01/21 11:50 Succinate 60 mg/ Sodium IV Infused Chloride Q8H HERMINIA Infusion Pharmacy Consult 1 each 01/27/21 20:57 Consult Rx Perform Med Rec MISCELLANE ONCE PRN Consult order Pharmacy Consult 1 each 01/27/21 21:02 Consult Rx Perform Med Rec MISCELLANE ONCE PRN Consult order Sodium Chloride 3 ml 01/28/21 00:00 02/01/21 09:05 0.9 % Sodium Chloride Flush 3 Ml Syringe IVFLUSH 3 ml QSHIFT HERMINIA Administration Time Spent With Patient Time: Total time spent is greater than 50% in coordination of care (as documented) at patient's floor/unit and/or counseling patient: Time with patient: less than 15 minutes
[2021-02-01] MEDS: Acetaminophen 325 MG TABLET 650 MG PO (11:55)
--- NOTE | 2021-02-01 13:00 | P.PNIM_ITS ---
Subjective Subjective Date of Service: 02/01/21 Interval History: Patient feels better eager to be discharged home denies abdominal pain tolerating diet, but unfortunately abdominal abscess culture grew Bacteroides fragilis beta lactamase positive pen/ amp resistant therefore consulted Dr. Hendrickson. ROS General no headache no dizziness no fever chills. CVS no chest pain, no palpitation. Respiratory no cough no shortness of breath Gastrointestinal no nausea, no abdominal pain, no vomiting, no diarrhea Physical Exam Vital Signs: Vital Signs: Last Vital Signs Temp 97.6 F 02/01/21 11:46 Pulse 74 02/01/21 11:46 Resp 16 02/01/21 11:46 BP 142/76 H 02/01/21 11:46 Pulse Ox 98 02/01/21 11:46 Body Mass Index 21.2 General no acute distress. Neck is supple no JVD. CVS regular rate rhythm, Respiratory lungs clear to auscultation, no respiratory distress, no wheeze, no rhonchi. Gastrointestinal abdomen soft, nontender, few mL serosanguineous drainage, bowel sounds audible Extremities no clubbing cyanosis or edema. Neuro nonfocal Skin no rash Objective Data Current Medications Generic Name Dose Route Start Last Admin Trade Name Freq PRN Reason Stop Dose Admin Acetaminophen 650 mg 01/27/21 21:02 02/01/21 11:55 Acetaminophen 325 Mg Tablet PO 650 mg Q6H PRN Administration Pain, Mild (Pain Scale 1-3) Cyanocobalamin 1,000 mcg 01/29/21 21:00 01/29/21 22:27 Cyanocobalamin (Vitamin B-12) 1,000 Mcg/Ml Vial IM 02/12/21 21:01 1,000 mcg Q7D HERMINIA Administration Hydromorphone HCl 0.5 mg 01/27/21 21:03 01/29/21 12:02 Hydromorphone Hcl 0.5 Mg/0.5 Ml Syringe IVPUSH 0.5 mg Q6H PRN Administration Pain, Severe (Pain Scale 7-10) Metronidazole 500 mg in 100 mls @ 100 mls/hr 01/28/21 06:00 02/01/21 06:55 Flagyl IV Infused Q8H HERMINIA Infusion Levofloxacin 750 mg in 150 mls @ 100 mls/hr 01/28/21 22:00 02/01/21 00:13 Levaquin IV Infused Q24H HERMINIA Infusion Hydrocortisone Sodium 50 mls @ 100 mls/hr 01/30/21 08:55 02/01/21 11:50 Succinate 60 mg/ Sodium IV Infused Chloride Q8H HERMINIA Infusion Pharmacy Consult 1 each 01/27/21 20:57 Consult Rx Perform Med Rec MISCELLANE ONCE PRN Consult order Pharmacy Consult 1 each 01/27/21 21:02 Consult Rx Perform Med Rec MISCELLANE ONCE PRN Consult order Sodium Chloride 3 ml 01/28/21 00:00 02/01/21 09:05 0.9 % Sodium Chloride Flush 3 Ml Syringe IVFLUSH 3 ml QSHIFT HERMINIA Administration Labs CBC & Chem 7: 01/30/21 06:12 02/01/21 06:40 Microbiology Microbiology Results: Microbiology 01/28/21 12:40 Abscess Intra-abdominal Gram Stain - Final 01/28/21 12:40 Abscess Intra-abdominal Routine Culture - Final 01/28/21 12:40 Abscess Intra-abdominal Anaerobic Culture - Final Bacteroides fragilis group 01/27/21 21:50 Blood - Venous Blood Culture - Preliminary No growth after 48 hours. 01/27/21 21:53 Blood - Venous Blood Culture - Preliminary No growth after 48 hours. 01/27/21 19:50 Blood - Venous Blood Culture - Preliminary No growth after 48 hours. 01/27/21 19:35 Blood - Venous Blood Culture - Preliminary No growth after 48 hours. Assessment and Plan (1) Intra-abdominal abscess: Status: Acute (2) Exacerbation of Crohn's disease with abscess: Status: Acute (3) Vitamin B 12 deficiency: Problem details: Imp: Vitamin B12 deficiency with anemia in relation to his Crohn's with SI disease and previous surgeries. Rec: Parenteral B12 replacement Status: Acute Assessment and Plan: 65 yo male with longstanding Crohn's of the SI with 2 previous surgeries in 1985 and 2006 with associated ileocolic resections for associated localized perforations and abscesses. He has been on biologics and Azathioprine in the past, but he has been off all therapy since approx 2018 per his own wishes and had been doing well up until the past 10 days. He now presents with pain and the finding of an intraabdominal abscess with inflammatory changes of the distal small bowel and ileocolic anastomosis. He feels a little better after antibio tics and analgesics. Crohn's flare with intra-abdominal abscess Patient feeling significantly better, no abdominal pain, tolerating regular diet minimal serosanguineous drainage in RIP drain Status post percutaneous drainage by IR on 01/28, currently on IV Flagyl and Levaquin day 5, abscess culture grew bacteroids beta lactamase positive,blood cultures negative , Consult to Dr. Cookie Hendrickson she recommend Flagyl and Levaquin for 14 days by mouth patient seen by Dr. Hernandez he started patient on IV hydrocortisone day 3 and then by mouth steroids Will place patient on by mouth steroids tomorrow morning will discuss tapering dose with Dr. Hernandez tomorrow Changed to by mouth antibiotic starting tomorrow for 2 weeks outpatient Surgery recommend outpatient follow-up for removal of RIP drain Vitamin B12 deficiency secondary to Crohn's and prior surgery Continue B12 replacement Hypokalemia and Hypomagnesium, magnesium 1.3 will replace with 2 g of magnesium, low potassium 2.8 will replete with IV and by mouth potassium, follow BMP at a.m. Disposition home tomorrow on prednisone and 2 weeks of antibiotics DVT prophylaxis ambulate ad-marine
[2021-02-01] MEDS: Magnesium Sulfate/H2O 2 GM/50 ML PIGGYBACK IV (13:31)
--- NOTE | 2021-02-01 13:34 | MHC.CM.PN ---
EMR REVIEWED, PT'S ABCESS GROWING A RESISTANT BACTERIA, ID CONSULT PENDING, NO PLAN FOR DISCHARGE AT THIS TIME, CM WILL CONT TO FOLLOW FOR D/C NEEDS.
[2021-02-01 15:42] VITALS: BP 111/72; PULSE 72; RESP 16; TEMP 36.9; O2SAT 97
[2021-02-01 20:00] VITALS: BP 112/59; PULSE 73; RESP 16; TEMP 37.1; O2SAT 95
[2021-02-01] MEDS: levoFLOXacin/D5W 750 MG/150 ML PIGGYBACK 100 MG IV (21:30)
[2021-02-01 23:26] VITALS: BP 111/70; PULSE 74; RESP 16; TEMP 36.8; O2SAT 96
[2021-02-02] MEDS: 0.9 % Sodium Chloride Flush 3 ML SYRINGE IVFLUSH ×2 (01:17→07:41)
[2021-02-02 03:33] VITALS: BP 118/74; PULSE 71; RESP 16; TEMP 36.9; O2SAT 97
[2021-02-02] MEDS: metroNIDAZOLE/NS 500 MG/100 ML PIGGYBACK 100 MG IV ×2 (05:56→14:39)
[2021-02-02 06:42] LABS: Anion Gap 13 (12-20); Blood Urea Nitrogen 14 mg/dL (9-16); Calcium 7.8 mg/dL (8.4-10.2); Carbon Dioxide 31 mmol/L (22-29); Chloride 102 mmol/L (96-108); Creatinine Clr Calc Pharmacy 81.8; Estimated Glomerular Filt Rate > 60; Glucose Random 107 mg/dL (60-115); Magnesium 1.9 mg/dL (1.6-2.6); Potassium 2.9 mmol/L (3.3-5.1); Sodium 143 mmol/L (135-145)
[2021-02-02 07:40] VITALS: BP 136/77; PULSE 82; RESP 15; TEMP 36.4; O2SAT 96
--- NOTE | 2021-02-02 08:43 | PM.PNGS ---
Subjective Subjective Date of Service: 02/02/21 Interval history: He continues to feel better Denies abdominal pain Has been tolerating regular diet Good GI function Physical Exam Vital Signs: Vital Signs: Last Vital Signs Temp 97.5 F 02/02/21 07:40 Pulse 82 02/02/21 07:40 Resp 15 02/02/21 07:40 BP 136/77 02/02/21 07:40 Pulse Ox 96 02/02/21 07:40 Body Mass Index 21.2 Const: General: comfortable, no acute distress and alert Resp: Effort & Inspection: normal respiratory effort Cardio: Rhythm: regular rhythm GI: Other: Soft, nondistended, nontender, drain in place, with very scanty output since last night Laboratory Results - last 24 hr 02/02/21 05:45 Sodium 143 Potassium 2.9 L Chloride 102 Carbon Dioxide 31 H Anion Gap 13 BUN 14 Creatinine 0.83 Estim Creat Clear Calc 81.8 Estimated GFR > 60 Random Glucose 107 Calcium 7.8 L Magnesium 1.9 Progress Note: A&P Assessment and plan (1) Intra-abdominal abscess: Status: Acute Assessment and Plan: Doing well post CT drainage Minimal output Correct potassium Doing well otherwise Plan to DC home later today if okay with medical service He will go home on p.o. antibiotics Will re-evaluate later today He is comfortable with the plan Fall Risk Details Current Medications: Current Medications Generic Name Dose Route Start Last Admin Trade Name Freq PRN Reason Stop Dose Admin Acetaminophen 650 mg 01/27/21 21:02 02/01/21 11:55 Acetaminophen 325 Mg Tablet PO 650 mg Q6H PRN Administration Pain, Mild (Pain Scale 1-3) Cyanocobalamin 1,000 mcg 01/29/21 21:00 01/29/21 22:27 Cyanocobalamin (Vitamin B-12) 1,000 Mcg/Ml Vial IM 02/12/21 21:01 1,000 mcg Q7D HERMINIA Administration Metronidazole 500 mg in 100 mls @ 100 mls/hr 01/28/21 06:00 02/02/21 07:30 Flagyl IV Infused Q8H HERMINIA Infusion Levofloxacin 750 mg in 150 mls @ 100 mls/hr 01/28/21 22:00 02/01/21 23:27 Levaquin IV Infused Q24H HERMINIA Infusion Hydrocortisone Sodium 50 mls @ 100 mls/hr 01/30/21 08:55 02/02/21 02:02 Succinate 60 mg/ Sodium IV Infused Chloride Q8H HERMINIA Infusion Oxycodone HCl 5 mg 02/01/21 14:05 Oxycodone Hcl Immed Release 5 Mg Tablet PO Q6H PRN Pain, Severe (Pain Scale 7-10) Pharmacy Consult 1 each 01/27/21 20:57 Consult Rx Perform Med Rec MISCELLANE ONCE PRN Consult order Pharmacy Consult 1 each 01/27/21 21:02 Consult Rx Perform Med Rec MISCELLANE ONCE PRN Consult order Sodium Chloride 3 ml 01/28/21 00:00 02/02/21 07:41 0.9 % Sodium Chloride Flush 3 Ml Syringe IVFLUSH 3 ml QSHIFT HERMINIA Administration Time Spent With Patient Time: Total time spent is greater than 50% in coordination of care (as documented) at patient's floor/unit and/or counseling patient: Time with patient: 15 - 24 minutes
[2021-02-02] MEDS: Potassium Chloride Packet 20 MEQ PACKET 40 MEQ PO (09:43)
--- NOTE | 2021-02-02 10:58 | MHC.CM.PN ---
PATIENT TO RETURN HOME TODAY WITH NO NEED FOR SERVICES. WILL TRANSPORT PATIENT HOME. PLAN IS PO ABX. RN AWARE OF PLAN.
[2021-02-02 11:51] VITALS: BP 116/76; PULSE 71; RESP 19; TEMP 36.2; O2SAT 98
--- NOTE | 2021-02-02 11:58 | PM.DS ---
DS: Providers Provider Date of Service: 02/02/21 Date of admission: 01/27/21 21:02 Primary care physician: None Physician Consults: 01/27/21 21:09 Consult to Gastroenterology Routine Consulting Provider: Alexis Hernandez Reason for consultation: Abd pain; hx Crohns flare Consult to General Surgery Routine Consulting Provider: Bethel Mitchell Reason for consultation: Interloop Abcess 02/01/21 07:47 Consult to Infectious Diseases Routine Consulting Provider: Kierra Hendrickson Reason for consultation: abd abscess bacteroids Has provider been notified: No DS: Diagnosis Discharge Diagnosis (1) Intra-abdominal abscess: Status: Acute DS: Medications Discharge Medications Home Medications: Home Medications Medication Instructions Recorded Confirmed No Known Home Meds 01/27/21 01/27/21 Previous Rx's Medication Instructions Recorded oxycodone 5 mg PO Q6H PRN #15 tab 02/02/21 DS: Summary Hospital Course Hospital Course: 65 yo male with longstanding Crohn's of the SI with 2 previous surgeries in 1985 and 2006 with associated ileocolic resections for associated localized perforations and abscesses. He has been on biologics and Azathioprine in the past, but he has been off all therapy since approx 2017 per his own wishes and had been doing well up until the past 10 days. He now presents with pain and the finding of an intraabdominal abscess with inflammatory changes of the distal small bowel and ileocolic anastomosis. He feels a little better after antibiotics and analgesics. Hospital course: He underwent CT guided IR drainage on 01/28 and cultures showeing bacteriodes. He was initially sterid but GI adivised disconuing, however on day 3 was restarted on hydrocortisone and will be discharged with Prednisone devonte 40 mg daily and devonte by 5 mg, Mesalamine will be added to his regimen as well... He was continued on IV Flagyl and Levaquin for 6 days now and will discharge with Oral Levaquin and Flagyl for 2 weeks. He feels better toleraint diet. Surgery followed him in hospital but did not intervene. He still has IR drain which will need to be removed at later time. Of note he had hypOkalemia and Hypomagnesemia both correcte with IV and oral suplementation. Time Spent with Patient Time attestation: Total time spent providing and/or coordinating discharge services: Discharge coordination time: Greater than 30 minutes Physical Exam Vital Signs: Vital Signs: Last Vital Signs Temp 97.2 F 02/02/21 11:51 Pulse 71 02/02/21 11:51 Resp 19 02/02/21 11:51 BP 116/76 02/02/21 11:51 Pulse Ox 98 02/02/21 11:51 Body Mass Index 21.2 DS: Data Data Completed and Pending Labs on day of discharge: Laboratory Results - last 24 hr 02/02/21 05:45 Sodium 143 Potassium 2.9 L Chloride 102 Carbon Dioxide 31 H Anion Gap 13 BUN 14 Creatinine 0.83 Estim Creat Clear Calc 81.8 Estimated GFR > 60 Random Glucose 107 Calcium 7.8 L Magnesium 1.9 Discharge Plan Discharge Anticipated Discharge Date/Time: 02/02/21 11:52 Patient Disposition: Home, Self-Care Discharge Diagnosis: Abdominal abscess Referrals: Physician,None [Primary Care Provider] - 1 Week Discharge Medications: New oxycodone 5 mg Tablet 5 mg PO Q6H PRN (Reason: Pain, Severe (Pain Scale 7-10)) Qty: 15 RF: 0 metronidazole [Flagyl] 500 mg tablet 500 mg PO Q8H Qty: 98 RF: 0 levofloxacin 500 mg tablet 500 mg PO DAILY 12 Days Qty: 12 RF: 0 No Action No Known Home Meds RF: 0 Diet: regular diet Activity on Discharge: As tolerated Stand Alone Forms: Patient Portal Discharge page Care Plan Goals: As above Health Concerns: Abdominal abscess due to Crohn's disease, take antibiotic and prednisone as directed and follow-up with Dr. Hernandez, general surgery Dr. Villavicencio in next 1 week Your RIP drain will be removed by surgeon at your office visit. Plan of Treatment: Follow-up with primary care physician, gastroenterology Dr. Hernandez and Dr. Villavicencio call to make appointment. Assessment: As per discharge summary
[2021-02-02 13:11] LABS: Potassium 3.4 mmol/L (3.3-5.1)
--- NOTE | 2021-02-02 14:01 | W.PM.IDCN ---
History of Present Illness Data of Consult Service Date: 02/01/21 Requesting physician: Eugenie Melton Primary Care Provider: None Physician HPI Reason for consult: bacteremia He presents to hospital with abdominal discomfort throughout. He has interloop abscess Bacteremia bacteroides Review of Systems Review of Systems: Yes all other systems are reviewed and are negative PMFSH Past Medical History Medical History Abdominal adhesions Crohn's disease Family History Family history: reviewed and not pertinent Social History Social History Household Members: Spouse Housing: House Do you presently have visiting nurse or other home services: No Smoking Status: Former smoker Tobacco Type: Cigarette Smoked in Last 30 Days: No Smoking Quit Date: 01/06/21 Patient Interested in Nicotine Replacement: No Patient Given Instructions on How to Stop Smoking: No Second Hand Smoke Exposure: No Use of substances other than those prescribed or required for medical reasons: No Currently Displaying Signs/Symptoms of Drug Intoxication Withdrawal: No Have you been hit, kicked, punched, or otherwise hurt by someone within the past year? If so, by whom?: No Do you feel safe in your current relationship?: Yes Is there a partner from a previous relationship who is making you feel unsafe now?: No Are you made to feel afraid or neglected: No Advance Directives: Yes Advance Directives Information Provided: Yes Advance Directives on File: No Advance Directives Date on File: 01/28/21 Do you have thoughts of harming others: None Do you have a plan to hurt others: No Plan Recently lost weight without trying: Yes service: No Current occupational status: retired Meds Allergies Allergy/AdvReac Type Severity Reaction Status Date / Time Penicillins [PENICILLINS] Allergy Mild RASH Verified 01/30/21 17:40 PCN Allergy Mild rash Uncoded 01/30/21 17:40 penicillin Allergy Mild Rash Uncoded 01/30/21 17:40 Active Medications: Current Medications Generic Name Dose Route Start Last Admin Trade Name Freq PRN Reason Stop Dose Admin Acetaminophen 650 mg 01/27/21 21:02 02/01/21 11:55 Acetaminophen 325 Mg Tablet PO 650 mg Q6H PRN Administration Pain, Mild (Pain Scale 1-3) Cyanocobalamin 1,000 mcg 01/29/21 21:00 01/29/21 22:27 Cyanocobalamin (Vitamin B-12) 1,000 Mcg/Ml Vial IM 02/12/21 21:01 1,000 mcg Q7D HERMINIA Administration Metronidazole 500 mg in 100 mls @ 100 mls/hr 01/28/21 06:00 02/02/21 07:30 Flagyl IV Infused Q8H HERMINIA Infusion Levofloxacin 750 mg in 150 mls @ 100 mls/hr 01/28/21 22:00 02/01/21 23:27 Levaquin IV Infused Q24H HERMINIA Infusion Hydrocortisone Sodium 50 mls @ 100 mls/hr 01/30/21 08:55 02/02/21 10:23 Succinate 60 mg/ Sodium IV Infused Chloride Q8H HERMINIA Infusion Oxycodone HCl 5 mg 02/01/21 14:05 Oxycodone Hcl Immed Release 5 Mg Tablet PO Q6H PRN Pain, Severe (Pain Scale 7-10) Pharmacy Consult 1 each 01/27/21 20:57 Consult Rx Perform Med Rec MISCELLANE ONCE PRN Consult order Pharmacy Consult 1 each 01/27/21 21:02 Consult Rx Perform Med Rec MISCELLANE ONCE PRN Consult order Sodium Chloride 3 ml 01/28/21 00:00 02/02/21 07:41 0.9 % Sodium Chloride Flush 3 Ml Syringe IVFLUSH 3 ml QSHIFT HERMINIA Administration Home Medications Medication Instructions Recorded Confirmed Last Taken Type No Known Home Meds 01/27/21 01/27/21 Unknown History Physical Exam Vital Signs: Vital Signs: Last Vital Signs Temp 97.2 F 02/02/21 11:51 Pulse 71 02/02/21 11:51 Resp 19 02/02/21 11:51 BP 116/76 02/02/21 11:51 Pulse Ox 98 02/02/21 11:51 Body Mass Index 21.2 Const: General: cooperative Orientation/consciousness: patient oriented x3 HENMT: Head: Yes normal to inspection Mouth: Normal oral and palatal mucosa present Resp: Effort & Inspection: normal respiratory effort Cardio: Rate: regular rate Rhythm: regular rhythm GI: Palpation (GI): Soft to palpation and nontender Skin: General skin exam: no rashes or lesions noted Neuro: General: patient oriented x3 Extrem: General: Yes normal to inspection Results Labs CBC & Chem 7: 01/30/21 06:12 02/02/21 12:17 Labs: BMP 02/02/21 02/02/21 05:45 12:17 Sodium 143 Potassium 2.9 L 3.4 Chloride 102 Carbon Dioxide 31 H BUN 14 Creatinine 0.83 Calcium 7.8 L Microbiology Microbiology Results: Microbiology 01/27/21 21:50 Blood - Venous Blood Culture - Final No growth after 5 days. 01/27/21 21:53 Blood - Venous Blood Culture - Final No growth after 5 days. 01/27/21 19:50 Blood - Venous Blood Culture - Final No growth after 5 days. 01/27/21 19:35 Blood - Venous Blood Culture - Final No growth after 5 days. 01/28/21 12:40 Abscess Intra-abdominal Gram Stain - Final 01/28/21 12:40 Abscess Intra-abdominal Routine Culture - Final 01/28/21 12:40 Abscess Intra-abdominal Anaerobic Culture - Final Bacteroides fragilis group Assessment and Plan (1) Intra-abdominal abscess: Problem details: He is doing well He has bacteroides bacteremia He has been tolerating medication Status: Acute Would give 14 days po Levaquin and Flagyl 500 mg bid (2) Exacerbation of Crohn's disease with abscess: Status: Acute
[2021-02-03 08:16] LABS: Hepatitis B Core Antibody Nonreactive (Nonreactive)
[2021-02-03 08:35] LABS: HBS Num1 1.02 mIU/mL (0-7.99); HBsAGNum1 0.34 S/CO (0.00-0.99); Hepatitis B Surface Antigen Negative (Negative); ~Hepatitis B Surface Antibody NONREACTIVE (Nonreactive)
[2021-02-05 12:56] LABS: TS Negative Control Passed; TS Panel A 0; TS Panel B 0; TS Positive Control Passed; TSpotTB Negative (SeeBelow)
== END 2021-02-02 15:55 | disposition home or self-care (01) | DRG 245 ==
LOC: HO.ED 21:05 → HO.EDOVER 21:37 → HO.S3 01-28 00:33
PROVIDERS: Hospitalist; Internal Medicine; Radiology Diagnostic Radiology; Admitting Provider Hospitalist; Emergency Provider Emergency Medicine; Visit Provider Internal Medicine
PROC: 0W9G30Z Drainage of Peritoneal Cavity with Drainage Device, Percutaneous Approach (ICD-10-PCS; principal; 2021-01-28 11:00)
DX: K50.014 Crohn's disease of small intestine with abscess (principal); E83.42 Hypomagnesemia; D51.3 Other dietary vitamin B12 deficiency anemia; E87.6 Hypokalemia; Z20.822 Contact with and (suspected) exposure to COVID-19; Z86.16 Personal history of COVID-19; Z88.0 Allergy status to penicillin; Z79.899 Other long term (current) drug therapy
CPT/HCPCS: 36415; 49406; 74177; 80048; 80076; 81001; 81003; 82607; 82728; 82746; 83540; 83605; 83690; 83735; 84132; 85025; 85610; 85730; 86481; 86704; 86706; 87040; 87071; 87073; 87185; 87205; 87340; 87635; 93005; 96365; 96368; 96375; 99285; C1729; C1769; C1887; C1892; C1894; J1170; J1956; J2270; J2765; J2920; J2930; J3430; J3475; Q4186; Q9967

== ENCOUNTER 2021-02-05 08:00 | Outpatient (REF) | payer BC, SELFPAY ==
[2021-02-05 11:50] LABS: Anion Gap 14 (12-20); Blood Urea Nitrogen 12 mg/dL (9-16); Calcium 8.6 mg/dL (8.4-10.2); Carbon Dioxide 33 mmol/L (22-29); Chloride 98 mmol/L (96-108); Estimated Glomerular Filt Rate > 60; Glucose Random 86 mg/dL (60-115); Potassium 2.9 mmol/L (3.3-5.1); Sodium 142 mmol/L (135-145)
== END 2021-02-05 08:01 | disposition home or self-care (01) ==
LOC: HO.HMGCLDS 08:00
PROVIDERS: Visit Provider Internal Medicine
DX: E87.6 Hypokalemia (principal)
CPT/HCPCS: 36415; 80048

== ENCOUNTER 2021-02-12 08:24 | Outpatient (REF) | payer BC, SELFPAY ==
--- NOTE | ~2021-02-12 | CT_ITS ---
EXAMINATION: CT ABDOMEN AND PELVIS WITH CONTRAST CLINICAL INFORMATION: Peritoneal abscess COMPARISON: Previous CT scans most recent January 27 and 01/28/2021 TECHNIQUE: Multidetector volumetric images were obtained from the superior aspect of the liver through the pubic symphysis following administration 85 mL of Omnipaque 350 intravenous contrast. Sagittal and coronal reformatted images were obtained on the technologist's workstation. Oral contrast: Yes This CT examination was performed using dose optimization techniques as appropriate, variously including the following: *Automated exposure control *Adjustment of mA and/or kV according to patient size (this includes techniques or standardized protocols for targeted exams where dose is matched to indication/reason for exam; i.e. extremities or head) *Use of iterative reconstruction technique DLP: 268 mGy-cm FINDINGS: LUNG BASES: The visualized lung bases are unremarkable. LIVER, GALLBLADDER, AND BILIARY TREE: The liver is normal in size, shape, and attenuation. No focal hepatic lesion or biliary ductal dilatation is present. There is a tiny gallstone in the gallbladder. Gallbladder wall appears slightly thickened and inferior laterally. This is similar to previous exams. PANCREAS: There is a small 4 mm low-attenuation lesion in the tail of the pancreas. On recent exam 01/27/2021 this appeared to be a fatty lesion. This does not appear fatty on the current exam. The pancreas is otherwise normal. SPLEEN: Unremarkable. ADRENAL GLANDS: Unremarkable. KIDNEYS AND URETERS: The kidneys are normal in size, shape, and attenuation. No hydronephrosis, hydroureter, or calculi seen. No perinephric stranding. BLADDER: Unremarkable. GASTROINTESTINAL TRACT: There are postsurgical changes following right colectomy. There is drainage catheter that appears unchanged in position. No residual fluid collection is seen. There is residual increased soft tissue seen adjacent to the pigtail drainage catheter questionable for thickened wall of the collection and surrounding adenopathy. There is bowel wall thickening of the distal small bowel just proximal to the anastomosis to the transverse colon for example axial images 39-49. Appearance is suggestive of active inflammatory bowel disease. The small and large bowel is otherwise unremarkable. ABDOMINAL WALL: No significant hernia is appreciated. LYMPH NODES: Normal. VASCULAR: Unremarkable. PELVIC VISCERA: Unremarkable. OSSEOUS STRUCTURES: Unremarkable. CT/CT abdomen pelvis w con IMPRESSION: No residual abscess seen. There is persistent increased soft tissue seen adjacent to the pigtail drainage catheter questionable for combination of adenopathy and residual abscess wall thickening. Persistent wall thickening of the adjacent distal small bowel just proximal to the enterocolic anastomosis suggestive of active inflammatory bowel disease.
[2021-02-12] MEDS: iohexoL 350 MG/ML 100 ML INFUS..BTL IV (11:11)
== END 2021-02-12 08:25 | disposition home or self-care (01) ==
LOC: HO.CT 08:24
PROVIDERS: Visit Provider Surgery
DX: K65.1 Peritoneal abscess (principal)
CPT/HCPCS: 74177; Q9967

== ENCOUNTER → 2021-02-18 11:14 | Outpatient (BNVA) | payer BC, SELFPAY | PROVIDERS: Referring Provider Internal Medicine; Visit Provider Surgery ==

== ENCOUNTER 2021-03-27 06:35 | Outpatient (REF) | payer BC, SELFPAY ==
[2021-03-27 11:21] LABS: MANUAL DIFF FLAG NO
[2021-03-27 11:22] LABS: Basophils Percent Auto 0.2 % (0-2); Eosinophils Absolute Auto 0.1 X10*3/uL (0.0-0.4); Eosinophils Percent Auto 1.1 % (0-4); Hematocrit 40.5 % (42-52); Hemoglobin 12.6 g/dl (14.0-18.0); Imm Gran Abs Auto 0.06 X10*3/uL (0.00-0.03); Imm Gran Pct Auto 0.6 % (0.0-0.4); Lymphocytes Percent Auto 20.5 % (20-40); Mean Corpuscular HGB Conc 31.1 g/dl (31.0-36.0); Mean Corpuscular Hemoglobin 31.4 pg (27.0-33.0); Mean Platelet Volume 10.5 fL (9.4-12.4); Monocytes Absolute Auto 0.6 X10*3/uL (0.1-1.2); Monocytes Percent Auto 5.7 % (2-11); Neutrophils Absolute Auto 7.1 X10*3/uL (2.0-8.3); Neutrophils Percent Auto 71.9 % (45-73); Platelet Count 266 X10*3/uL (160-400); Red Blood Count 4.01 X10*6/uL (4.60-5.80); Red Cell Distribution Width 14.5 % (11.0-16.0); White Blood Count 9.9 X10*3/uL (4.8-10.8)
[2021-03-27 11:37] LABS: Alanine Aminotransferase 29 U/L (0-40); Albumin Level 3.6 g/dL (3.5-5.0); Alkaline Phosphatase 87 U/L (39-117); Aspartate Amino Transferase 19 U/L (5-37); Bilirubin Direct 0.2 mg/dL (0.0-0.5); Bilirubin Total 0.3 mg/dL (0.0-1.0); Total Protein 5.6 g/dL (6.5-8.0)
== END 2021-03-27 06:36 | disposition home or self-care (01) ==
LOC: HO.HMGCLR 06:35
PROVIDERS: Visit Provider Internal Medicine
DX: K50.019 Crohn's disease of small intestine with unspecified complications (principal)
CPT/HCPCS: 36415; 80076; 85025

== ENCOUNTER 2021-05-19 08:26 | Outpatient (REF) | payer BC, SELFPAY ==
[2021-05-19 11:16] LABS: MANUAL DIFF FLAG NO
[2021-05-19 11:22] LABS: Basophils Percent Auto 0.4 % (0-2); Eosinophils Absolute Auto 0.5 X10*3/uL (0.0-0.4); Hematocrit 43.9 % (42-52); Hemoglobin 13.5 g/dl (14.0-18.0); Imm Gran Abs Auto 0.04 X10*3/uL (0.00-0.03); Imm Gran Pct Auto 0.4 % (0.0-0.4); Lymphocytes Absolute Auto 1.7 X10*3/uL (1.2-4.9); Lymphocytes Percent Auto 18.1 % (20-40); Mean Corpuscular HGB Conc 30.8 g/dl (31.0-36.0); Mean Corpuscular Hemoglobin 30.3 pg (27.0-33.0); Mean Corpuscular Volume 98.4 fL (80-98); Mean Platelet Volume 10.1 fL (9.4-12.4); Monocytes Absolute Auto 0.6 X10*3/uL (0.1-1.2); Neutrophils Absolute Auto 6.3 X10*3/uL (2.0-8.3); Neutrophils Percent Auto 69.1 % (45-73); Platelet Count 426 X10*3/uL (160-400); Red Blood Count 4.46 X10*6/uL (4.60-5.80); Red Cell Distribution Width 13.2 % (11.0-16.0); White Blood Count 9.1 X10*3/uL (4.8-10.8)
[2021-05-19 11:48] LABS: Alanine Aminotransferase 11 U/L (0-40); Alkaline Phosphatase 88 U/L (39-117); Aspartate Amino Transferase 19 U/L (5-37); Bilirubin Direct 0.2 mg/dL (0.0-0.5); Bilirubin Total 0.3 mg/dL (0.0-1.0); Total Protein 6.4 g/dL (6.5-8.0)
== END 2021-05-19 08:27 | disposition home or self-care (01) ==
LOC: HO.HMGCLDS 08:26
PROVIDERS: PCP Internal Medicine; Visit Provider Internal Medicine
DX: K50.012 Crohn's disease of small intestine with intestinal obstruction (principal)
CPT/HCPCS: 36415; 80076; 85025

== ENCOUNTER 2021-06-17 08:13 | Outpatient (REF) | payer BC, SELFPAY ==
[2021-06-17 11:16] LABS: MANUAL DIFF FLAG NO
[2021-06-17 11:31] LABS: Basophils Absolute Auto 0.1 X10*3/uL (0.0-0.2); Basophils Percent Auto 0.5 % (0-2); Eosinophils Absolute Auto 0.9 X10*3/uL (0.0-0.4); Eosinophils Percent Auto 7.9 % (0-4); Hemoglobin 13.8 g/dl (14.0-18.0); Imm Gran Abs Auto 0.05 X10*3/uL (0.00-0.03); Imm Gran Pct Auto 0.4 % (0.0-0.4); Lymphocytes Absolute Auto 1.5 X10*3/uL (1.2-4.9); Lymphocytes Percent Auto 12.6 % (20-40); Mean Corpuscular HGB Conc 31.4 g/dl (31.0-36.0); Mean Corpuscular Hemoglobin 30.2 pg (27.0-33.0); Mean Corpuscular Volume 96.3 fL (80-98); Mean Platelet Volume 10.4 fL (9.4-12.4); Monocytes Absolute Auto 0.7 X10*3/uL (0.1-1.2); Monocytes Percent Auto 5.5 % (2-11); Neutrophils Absolute Auto 8.7 X10*3/uL (2.0-8.3); Neutrophils Percent Auto 73.1 % (45-73); Platelet Count 421 X10*3/uL (160-400); Red Blood Count 4.57 X10*6/uL (4.60-5.80); Red Cell Distribution Width 13.8 % (11.0-16.0); White Blood Count 11.9 X10*3/uL (4.8-10.8)
[2021-06-17 11:46] LABS: Alanine Aminotransferase 11 U/L (0-40); Albumin Level 4.1 g/dL (3.5-5.0); Alkaline Phosphatase 96 U/L (39-117); Aspartate Amino Transferase 19 U/L (5-37); Bilirubin Direct 0.2 mg/dL (0.0-0.5); Bilirubin Total 0.3 mg/dL (0.0-1.0); Total Protein 6.2 g/dL (6.5-8.0)
== END 2021-06-17 08:14 | disposition home or self-care (01) ==
LOC: HO.HMGCLR 08:13
PROVIDERS: Visit Provider Internal Medicine
DX: K50.019 Crohn's disease of small intestine with unspecified complications (principal)
CPT/HCPCS: 36415; 80076; 85025

== ENCOUNTER 2021-07-22 07:14 | Outpatient (REF) | payer BC, SELFPAY ==
[2021-07-22 11:16] LABS: MANUAL DIFF FLAG NO
[2021-07-22 11:25] LABS: Basophils Percent Auto 0.4 % (0-2); Eosinophils Absolute Auto 1.4 X10*3/uL (0.0-0.4); Eosinophils Percent Auto 13.8 % (0-4); Hematocrit 42.4 % (42-52); Hemoglobin 13.2 g/dl (14.0-18.0); Imm Gran Abs Auto 0.04 X10*3/uL (0.00-0.03); Imm Gran Pct Auto 0.4 % (0.0-0.4); Lymphocytes Absolute Auto 1.6 X10*3/uL (1.2-4.9); Lymphocytes Percent Auto 15.4 % (20-40); Mean Corpuscular HGB Conc 31.1 g/dl (31.0-36.0); Mean Corpuscular Hemoglobin 30.1 pg (27.0-33.0); Mean Corpuscular Volume 96.6 fL (80-98); Mean Platelet Volume 10.2 fL (9.4-12.4); Monocytes Absolute Auto 0.6 X10*3/uL (0.1-1.2); Monocytes Percent Auto 6.1 % (2-11); Neutrophils Absolute Auto 6.7 X10*3/uL (2.0-8.3); Neutrophils Percent Auto 63.9 % (45-73); Platelet Count 399 X10*3/uL (160-400); Red Blood Count 4.39 X10*6/uL (4.60-5.80); White Blood Count 10.4 X10*3/uL (4.8-10.8)
[2021-07-22 12:09] LABS: Alanine Aminotransferase 11 U/L (0-40); Albumin Level 4.1 g/dL (3.5-5.0); Alkaline Phosphatase 116 U/L (39-117); Aspartate Amino Transferase 20 U/L (5-37); Bilirubin Direct < 0.2 mg/dL (0.0-0.5); Bilirubin Total < 0.2 mg/dL (0.0-1.0); Total Protein 6.3 g/dL (6.5-8.0)
== END 2021-07-22 07:15 | disposition home or self-care (01) ==
LOC: HO.HMGCLR 07:14
PROVIDERS: Visit Provider Internal Medicine
DX: K50.019 Crohn's disease of small intestine with unspecified complications (principal)
CPT/HCPCS: 36415; 80076; 85025

== ENCOUNTER 2021-08-10 11:11 | Outpatient (REF) | payer BC, SELFPAY | END 2021-08-10 11:12 | disposition home or self-care (01) | LOC: HO.MDS 11:11 | PROVIDERS: Visit Provider Internal Medicine | DX: K50.914 Crohn's disease, unspecified, with abscess (principal) | CPT/HCPCS: 96365; J3358 ==

== ENCOUNTER 2021-08-18 07:18 | Outpatient (REF) | payer BC, SELFPAY ==
[2021-08-18 11:25] LABS: MANUAL DIFF FLAG NO
[2021-08-18 11:46] LABS: Basophils Absolute Auto 0.1 X10*3/uL (0.0-0.2); Basophils Percent Auto 0.6 % (0-2); Eosinophils Absolute Auto 1.4 X10*3/uL (0.0-0.4); Eosinophils Percent Auto 14.9 % (0-4); Hematocrit 41.6 % (42.0-52.0); Hemoglobin 13.4 g/dl (14.0-18.0); Imm Gran Abs Auto 0.03 X10*3/uL (0.00-0.03); Imm Gran Pct Auto 0.3 % (0.0-0.4); Lymphocytes Absolute Auto 1.4 X10*3/uL (1.2-4.9); Lymphocytes Percent Auto 15.2 % (20-40); Mean Corpuscular HGB Conc 32.2 g/dl (31.0-36.0); Mean Corpuscular Hemoglobin 31.3 pg (27.0-33.0); Mean Corpuscular Volume 97.2 fL (80.0-98.0); Mean Platelet Volume 10.2 fL (9.4-12.4); Monocytes Absolute Auto 0.5 X10*3/uL (0.1-1.2); Monocytes Percent Auto 5.6 % (2-11); Neutrophils Absolute Auto 5.95 x10*3/uL (2.0-8.3); Neutrophils Percent Auto 63.4 % (45-73); Platelet Count 363 X10*3/uL (160-400); Red Blood Count 4.28 X10*6/uL (4.60-5.80); Red Cell Distribution Width 15.4 % (11.0-16.0); White Blood Count 9.4 X10*3/uL (4.8-10.8)
[2021-08-18 12:25] LABS: Alanine Aminotransferase 11 U/L (0-40); Albumin Level 4.1 g/dL (3.5-5.0); Alkaline Phosphatase 110 U/L (39-117); Aspartate Amino Transferase 18 U/L (5-37); Bilirubin Direct < 0.2 mg/dL (0.0-0.5); Bilirubin Total 0.3 mg/dL (0.0-1.0); Total Protein 6.3 g/dL (6.5-8.0)
== END 2021-08-18 07:19 | disposition home or self-care (01) ==
LOC: HO.HMGCLDS 07:18
PROVIDERS: Visit Provider Internal Medicine
DX: K50.019 Crohn's disease of small intestine with unspecified complications (principal)
CPT/HCPCS: 36415; 80076; 85025

== ENCOUNTER 2021-09-16 07:55 | Outpatient (REF) | payer BC, SELFPAY ==
[2021-09-16 11:08] LABS: MANUAL DIFF FLAG NO
[2021-09-16 11:31] LABS: Basophils Absolute Auto 0.1 X10*3/uL (0.0-0.2); Basophils Percent Auto 0.6 % (0-2); Eosinophils Absolute Auto 1.3 X10*3/uL (0.0-0.4); Eosinophils Percent Auto 15.5 % (0-4); Hematocrit 39.5 % (42.0-52.0); Hemoglobin 12.4 g/dl (14.0-18.0); Imm Gran Abs Auto 0.02 X10*3/uL (0.00-0.03); Imm Gran Pct Auto 0.2 % (0.0-0.4); Lymphocytes Absolute Auto 1.5 X10*3/uL (1.2-4.9); Lymphocytes Percent Auto 17.8 % (20-40); Mean Corpuscular HGB Conc 31.4 g/dl (31.0-36.0); Mean Corpuscular Hemoglobin 30.5 pg (27.0-33.0); Mean Corpuscular Volume 97.3 fL (80.0-98.0); Monocytes Absolute Auto 0.6 X10*3/uL (0.1-1.2); Monocytes Percent Auto 6.7 % (2-11); Neutrophils Absolute Auto 4.9 x10*3/uL (2.0-8.3); Neutrophils Percent Auto 59.2 % (45-73); Platelet Count 398 X10*3/uL (160-400); Red Blood Count 4.06 X10*6/uL (4.60-5.80); Red Cell Distribution Width 14.4 % (11.0-16.0); White Blood Count 8.2 X10*3/uL (4.8-10.8)
[2021-09-16 11:43] LABS: Alanine Aminotransferase 8 U/L (0-40); Albumin Level 3.9 g/dL (3.5-5.0); Alkaline Phosphatase 107 U/L (39-117); Aspartate Amino Transferase 15 U/L (5-37); Bilirubin Direct 0.2 mg/dL (0.0-0.5); Bilirubin Total 0.3 mg/dL (0.0-1.0); Total Protein 6.1 g/dL (6.5-8.0)
== END 2021-09-16 07:56 | disposition home or self-care (01) ==
LOC: HO.HMGCLR 07:55
PROVIDERS: Visit Provider Internal Medicine
DX: K50.019 Crohn's disease of small intestine with unspecified complications (principal)
CPT/HCPCS: 36415; 80076; 85025

== ENCOUNTER 2021-10-19 10:12 | Outpatient (REF) | payer BC, SELFPAY ==
[2021-10-19 11:33] LABS: Basophils Percent Auto 0.3 % (0-2); Eosinophils Absolute Auto 0.7 X10*3/uL (0.0-0.4); Hematocrit 41.1 % (42.0-52.0); Hemoglobin 13.1 g/dl (14.0-18.0); Imm Gran Abs Auto 0.02 X10*3/uL (0.00-0.03); Imm Gran Pct Auto 0.3 % (0.0-0.4); Lymphocytes Absolute Auto 1.1 X10*3/uL (1.2-4.9); Lymphocytes Percent Auto 19.1 % (20-40); MANUAL DIFF FLAG NO; Mean Corpuscular HGB Conc 31.9 g/dl (31.0-36.0); Mean Corpuscular Hemoglobin 31.2 pg (27.0-33.0); Mean Corpuscular Volume 97.9 fL (80.0-98.0); Mean Platelet Volume 10.3 fL (9.4-12.4); Monocytes Absolute Auto 0.3 X10*3/uL (0.1-1.2); Monocytes Percent Auto 5.3 % (2-11); Neutrophils Absolute Auto 3.7 x10*3/uL (2.0-8.3); Platelet Count 265 X10*3/uL (160-400); White Blood Count 5.9 X10*3/uL (4.8-10.8)
[2021-10-19 12:18] LABS: Alanine Aminotransferase 13 U/L (0-40); Albumin Level 4.1 g/dL (3.5-5.0); Alkaline Phosphatase 113 U/L (39-117); Aspartate Amino Transferase 16 U/L (5-37); Bilirubin Direct 0.2 mg/dL (0.0-0.5); Bilirubin Total 0.4 mg/dL (0.0-1.0); Total Protein 6.4 g/dL (6.5-8.0)
== END 2021-10-19 10:13 | disposition home or self-care (01) ==
LOC: HO.HMGCLR 10:12
PROVIDERS: Visit Provider Internal Medicine
DX: K50.012 Crohn's disease of small intestine with intestinal obstruction (principal)
CPT/HCPCS: 36415; 80076; 85025

== ENCOUNTER 2021-11-17 07:43 | Outpatient (REF) | payer BC, SELFPAY ==
[2021-11-17 11:30] LABS: MANUAL DIFF FLAG NO
[2021-11-17 11:37] LABS: Basophils Absolute Auto 0.1 X10*3/uL (0.0-0.2); Basophils Percent Auto 0.8 % (0-2); Eosinophils Absolute Auto 1.1 X10*3/uL (0.0-0.4); Eosinophils Percent Auto 16.4 % (0-4); Hematocrit 42.1 % (42.0-52.0); Hemoglobin 12.9 g/dl (14.0-18.0); Imm Gran Abs Auto 0.02 X10*3/uL (0.00-0.03); Imm Gran Pct Auto 0.3 % (0.0-0.4); Lymphocytes Absolute Auto 1.3 X10*3/uL (1.2-4.9); Lymphocytes Percent Auto 20.2 % (20-40); Mean Corpuscular HGB Conc 30.6 g/dl (31.0-36.0); Mean Corpuscular Hemoglobin 31.5 pg (27.0-33.0); Mean Corpuscular Volume 102.9 fL (80.0-98.0); Mean Platelet Volume 10.5 fL (9.4-12.4); Monocytes Absolute Auto 0.5 X10*3/uL (0.1-1.2); Monocytes Percent Auto 7.8 % (2-11); Neutrophils Absolute Auto 3.6 x10*3/uL (2.0-8.3); Neutrophils Percent Auto 54.5 % (45-73); Platelet Count 274 X10*3/uL (160-400); Red Blood Count 4.09 X10*6/uL (4.60-5.80); Red Cell Distribution Width 14.6 % (11.0-16.0); White Blood Count 6.6 X10*3/uL (4.8-10.8)
[2021-11-17 12:17] LABS: Alanine Aminotransferase 12 U/L (0-40); Alkaline Phosphatase 107 U/L (39-117); Aspartate Amino Transferase 20 U/L (5-37); Bilirubin Direct 0.2 mg/dL (0.0-0.5); Bilirubin Total 0.4 mg/dL (0.0-1.0); Total Protein 6.5 g/dL (6.5-8.0)
== END 2021-11-17 07:44 | disposition home or self-care (01) ==
LOC: HO.HMGCLR 07:43
PROVIDERS: Visit Provider Internal Medicine
DX: K50.012 Crohn's disease of small intestine with intestinal obstruction (principal)
CPT/HCPCS: 36415; 80076; 85025

== ENCOUNTER 2021-12-17 09:53 | Outpatient (REF) | payer BC, SELFPAY ==
[2021-12-17 11:29] LABS: MANUAL DIFF FLAG NO
[2021-12-17 11:39] LABS: Basophils Percent Auto 0.4 % (0-2); Eosinophils Percent Auto 10.4 % (0-4); Hematocrit 41.1 % (42.0-52.0); Hemoglobin 13.1 g/dl (14.0-18.0); Imm Gran Abs Auto 0.03 X10*3/uL (0.00-0.03); Imm Gran Pct Auto 0.3 % (0.0-0.4); Lymphocytes Absolute Auto 1.2 X10*3/uL (1.2-4.9); Lymphocytes Percent Auto 13.4 % (20-40); Mean Corpuscular HGB Conc 31.9 g/dl (31.0-36.0); Mean Corpuscular Hemoglobin 32.2 pg (27.0-33.0); Mean Platelet Volume 10.3 fL (9.4-12.4); Monocytes Absolute Auto 0.6 X10*3/uL (0.1-1.2); Monocytes Percent Auto 6.8 % (2-11); Neutrophils Absolute Auto 6.3 x10*3/uL (2.0-8.3); Neutrophils Percent Auto 68.7 % (45-73); Platelet Count 311 X10*3/uL (160-400); Red Blood Count 4.07 X10*6/uL (4.60-5.80); Red Cell Distribution Width 14.6 % (11.0-16.0); White Blood Count 9.2 X10*3/uL (4.8-10.8)
[2021-12-17 11:52] LABS: Alanine Aminotransferase 6 U/L (0-40); Albumin Level 4.2 g/dL (3.5-5.0); Alkaline Phosphatase 103 U/L (39-117); Aspartate Amino Transferase 14 U/L (5-37); Bilirubin Direct 0.2 mg/dL (0.0-0.5); Bilirubin Total 0.3 mg/dL (0.0-1.0); Total Protein 6.6 g/dL (6.5-8.0)
== END 2021-12-17 09:54 | disposition home or self-care (01) ==
LOC: HO.HMGCLR 09:53
PROVIDERS: Visit Provider Internal Medicine
DX: K50.012 Crohn's disease of small intestine with intestinal obstruction (principal)
CPT/HCPCS: 36415; 80076; 85025

== ENCOUNTER 2022-01-19 08:36 | Outpatient (REF) | payer BC, SELFPAY ==
[2022-01-19 11:23] LABS: MANUAL DIFF FLAG NO
[2022-01-19 11:37] LABS: Basophils Absolute Auto 0.1 X10*3/uL (0.0-0.2); Basophils Percent Auto 0.8 % (0-2); Eosinophils Absolute Auto 1.2 X10*3/uL (0.0-0.4); Eosinophils Percent Auto 17.7 % (0-4); Hematocrit 42.6 % (42.0-52.0); Hemoglobin 13.5 g/dl (14.0-18.0); Imm Gran Abs Auto 0.02 X10*3/uL (0.00-0.03); Imm Gran Pct Auto 0.3 % (0.0-0.4); Lymphocytes Absolute Auto 1.4 X10*3/uL (1.2-4.9); Mean Corpuscular HGB Conc 31.7 g/dl (31.0-36.0); Mean Corpuscular Hemoglobin 32.4 pg (27.0-33.0); Mean Corpuscular Volume 102.2 fL (80.0-98.0); Mean Platelet Volume 10.3 fL (9.4-12.4); Monocytes Absolute Auto 0.5 X10*3/uL (0.1-1.2); Monocytes Percent Auto 7.4 % (2-11); Neutrophils Absolute Auto 3.5 x10*3/uL (2.0-8.3); Neutrophils Percent Auto 52.8 % (45-73); Platelet Count 263 X10*3/uL (160-400); Red Blood Count 4.17 X10*6/uL (4.60-5.80); Red Cell Distribution Width 14.3 % (11.0-16.0); White Blood Count 6.6 X10*3/uL (4.8-10.8)
[2022-01-19 12:18] LABS: Alanine Aminotransferase 9 U/L (0-40); Albumin Level 4.1 g/dL (3.5-5.0); Alkaline Phosphatase 97 U/L (39-117); Aspartate Amino Transferase 16 U/L (5-37); Bilirubin Direct 0.2 mg/dL (0.0-0.5); Bilirubin Total 0.4 mg/dL (0.0-1.0); Total Protein 6.4 g/dL (6.5-8.0)
== END 2022-01-19 08:37 | disposition home or self-care (01) ==
LOC: HO.HMGCLR 08:36
PROVIDERS: Visit Provider Internal Medicine
DX: K50.012 Crohn's disease of small intestine with intestinal obstruction (principal)
CPT/HCPCS: 36415; 80076; 85025

== ENCOUNTER 2022-02-16 09:13 | Outpatient (REF) | payer BC, SELFPAY ==
[2022-02-16 11:13] LABS: MANUAL DIFF FLAG NO
[2022-02-16 11:29] LABS: Basophils Percent Auto 0.4 % (0-2); Eosinophils Percent Auto 14.9 % (0-4); Hematocrit 42.8 % (42.0-52.0); Hemoglobin 13.3 g/dl (14.0-18.0); Imm Gran Abs Auto 0.01 X10*3/uL (0.00-0.03); Imm Gran Pct Auto 0.1 % (0.0-0.4); Lymphocytes Absolute Auto 1.3 X10*3/uL (1.2-4.9); Lymphocytes Percent Auto 18.1 % (20-40); Mean Corpuscular HGB Conc 31.1 g/dl (31.0-36.0); Mean Corpuscular Hemoglobin 31.7 pg (27.0-33.0); Mean Corpuscular Volume 101.9 fL (80.0-98.0); Mean Platelet Volume 10.1 fL (9.4-12.4); Monocytes Absolute Auto 0.6 X10*3/uL (0.1-1.2); Monocytes Percent Auto 7.9 % (2-11); Neutrophils Absolute Auto 4.1 x10*3/uL (2.0-8.3); Neutrophils Percent Auto 58.6 % (45-73); Platelet Count 289 X10*3/uL (160-400); Red Cell Distribution Width 13.6 % (11.0-16.0)
[2022-02-16 11:38] LABS: Alanine Aminotransferase 8 U/L (0-40); Albumin Level 4.2 g/dL (3.5-5.0); Alkaline Phosphatase 99 U/L (39-117); Aspartate Amino Transferase 16 U/L (5-37); Bilirubin Direct < 0.2 mg/dL (0.0-0.5); Bilirubin Total 0.4 mg/dL (0.0-1.0); Total Protein 6.5 g/dL (6.5-8.0)
== END 2022-02-16 09:14 | disposition home or self-care (01) ==
LOC: HO.HMGCLR 09:13
PROVIDERS: Visit Provider Internal Medicine
DX: K50.012 Crohn's disease of small intestine with intestinal obstruction (principal)
CPT/HCPCS: 36415; 80076; 85025

== ENCOUNTER 2022-10-20 09:06 | Outpatient (REF) | payer MEDICARE, SELFPAY ==
[2022-10-20 11:23] LABS: MANUAL DIFF FLAG NO
[2022-10-20 11:45] LABS: Basophils Percent Auto 0.4 % (0-2); Eosinophils Absolute Auto 0.9 X10*3/uL (0.0-0.4); Eosinophils Percent Auto 13.3 % (0-4); Hematocrit 42.3 % (42.0-52.0); Hemoglobin 13.5 g/dl (14.0-18.0); Imm Gran Abs Auto 0.04 X10*3/uL (0.00-0.03); Imm Gran Pct Auto 0.6 % (0.0-0.4); Lymphocytes Absolute Auto 1.3 X10*3/uL (1.2-4.9); Lymphocytes Percent Auto 18.2 % (20-40); Mean Corpuscular HGB Conc 31.9 g/dl (31.0-36.0); Mean Corpuscular Hemoglobin 32.9 pg (27.0-33.0); Mean Corpuscular Volume 103.2 fL (80.0-98.0); Mean Platelet Volume 10.3 fL (9.4-12.4); Monocytes Absolute Auto 0.5 X10*3/uL (0.1-1.2); Monocytes Percent Auto 7.3 % (2-11); Neutrophils Absolute Auto 4.3 x10*3/uL (2.0-8.3); Neutrophils Percent Auto 60.2 % (45-73); Platelet Count 284 X10*3/uL (160-400); Red Cell Distribution Width 13.2 % (11.0-16.0); White Blood Count 7.1 X10*3/uL (4.8-10.8)
[2022-10-20 11:59] LABS: Alanine Aminotransferase 7 U/L (0-40); Albumin Level 4.3 g/dL (3.5-5.0); Alkaline Phosphatase 75 U/L (39-117); Aspartate Amino Transferase 20 U/L (5-37); Bilirubin Direct 0.2 mg/dL (0.0-0.5); Bilirubin Total 0.4 mg/dL (0.0-1.0); Total Protein 6.6 g/dL (6.5-8.0)
== END 2022-10-20 09:07 | disposition home or self-care (01) ==
LOC: HO.HMGCLR 09:06
PROVIDERS: Visit Provider Internal Medicine
DX: K50.012 Crohn's disease of small intestine with intestinal obstruction (principal)
CPT/HCPCS: 36415; 80076; 85025

== ENCOUNTER 2022-11-25 08:21 | Outpatient (REF) | payer MEDICARE, SELFPAY ==
[2022-11-25 11:31] LABS: MANUAL DIFF FLAG NO
[2022-11-25 11:53] LABS: Basophils Percent Auto 0.6 % (0-2); Eosinophils Absolute Auto 0.7 X10*3/uL (0.0-0.4); Eosinophils Percent Auto 11.4 % (0-4); Hematocrit 42.7 % (42.0-52.0); Hemoglobin 13.6 g/dl (14.0-18.0); Imm Gran Abs Auto 0.02 X10*3/uL (0.00-0.03); Imm Gran Pct Auto 0.3 % (0.0-0.4); Lymphocytes Absolute Auto 1.2 X10*3/uL (1.2-4.9); Lymphocytes Percent Auto 18.5 % (20-40); Mean Corpuscular HGB Conc 31.9 g/dl (31.0-36.0); Mean Corpuscular Hemoglobin 32.5 pg (27.0-33.0); Mean Corpuscular Volume 101.9 fL (80.0-98.0); Mean Platelet Volume 10.1 fL (9.4-12.4); Monocytes Absolute Auto 0.5 X10*3/uL (0.1-1.2); Monocytes Percent Auto 8.1 % (2-11); Neutrophils Absolute Auto 3.8 x10*3/uL (2.0-8.3); Neutrophils Percent Auto 61.1 % (45-73); Platelet Count 263 X10*3/uL (160-400); Red Blood Count 4.19 X10*6/uL (4.60-5.80); Red Cell Distribution Width 13.4 % (11.0-16.0); White Blood Count 6.2 X10*3/uL (4.8-10.8)
[2022-11-25 12:31] LABS: Alanine Aminotransferase 12 U/L (0-40); Albumin Level 4.1 g/dL (3.5-5.0); Alkaline Phosphatase 75 U/L (39-117); Aspartate Amino Transferase 18 U/L (5-37); Bilirubin Direct < 0.2 mg/dL (0.0-0.5); Bilirubin Total 0.5 mg/dL (0.0-1.0); Total Protein 6.2 g/dL (6.5-8.0)
== END 2022-11-25 08:22 | disposition home or self-care (01) ==
LOC: HO.HMGCLR 08:21
PROVIDERS: Visit Provider Internal Medicine
DX: K50.012 Crohn's disease of small intestine with intestinal obstruction (principal)
CPT/HCPCS: 36415; 80076; 85025

== ENCOUNTER 2023-01-16 09:07 | Outpatient (REF) | payer MEDICARE, SELFPAY ==
[2023-01-16 11:15] LABS: MANUAL DIFF FLAG NO
[2023-01-16 12:02] LABS: Basophils Absolute Auto 0.1 X10*3/uL (0.0-0.2); Basophils Percent Auto 0.7 % (0-2); Eosinophils Percent Auto 14.2 % (0-4); Hematocrit 41.2 % (42.0-52.0); Hemoglobin 13.1 g/dl (14.0-18.0); Imm Gran Abs Auto 0.06 X10*3/uL (0.00-0.03); Imm Gran Pct Auto 0.9 % (0.0-0.4); Lymphocytes Absolute Auto 1.3 X10*3/uL (1.2-4.9); Lymphocytes Percent Auto 19.3 % (20-40); Mean Corpuscular HGB Conc 31.8 g/dl (31.0-36.0); Mean Corpuscular Hemoglobin 33.5 pg (27.0-33.0); Mean Corpuscular Volume 105.4 fL (80.0-98.0); Mean Platelet Volume 10.3 fL (9.4-12.4); Monocytes Absolute Auto 0.6 X10*3/uL (0.1-1.2); Neutrophils Absolute Auto 3.9 x10*3/uL (2.0-8.3); Neutrophils Percent Auto 56.9 % (45-73); Platelet Count 312 X10*3/uL (160-400); Red Blood Count 3.91 X10*6/uL (4.60-5.80); Red Cell Distribution Width 13.6 % (11.0-16.0); White Blood Count 6.9 X10*3/uL (4.8-10.8)
[2023-01-16 12:32] LABS: Alanine Aminotransferase 11 U/L (0-40); Alkaline Phosphatase 78 U/L (39-117); Aspartate Amino Transferase 19 U/L (5-37); Bilirubin Direct 0.2 mg/dL (0.0-0.5); Bilirubin Total 0.5 mg/dL (0.0-1.0); Total Protein 6.1 g/dL (6.5-8.0)
== END 2023-01-16 09:08 | disposition home or self-care (01) ==
LOC: HO.HMGCLR 09:07
PROVIDERS: Visit Provider Internal Medicine
DX: K50.012 Crohn's disease of small intestine with intestinal obstruction (principal)
CPT/HCPCS: 36415; 80076; 85025

== ENCOUNTER 2023-02-27 08:53 | Outpatient (REF) | payer MEDICARE, SELFPAY ==
[2023-02-27 11:20] LABS: MANUAL DIFF FLAG NO
[2023-02-27 11:34] LABS: Basophils Percent Auto 0.6 % (0-2); Eosinophils Percent Auto 14.4 % (0-4); Hematocrit 42.1 % (42.0-52.0); Hemoglobin 13.5 g/dl (14.0-18.0); Imm Gran Abs Auto 0.02 X10*3/uL (0.00-0.03); Imm Gran Pct Auto 0.3 % (0.0-0.4); Lymphocytes Absolute Auto 1.2 X10*3/uL (1.2-4.9); Lymphocytes Percent Auto 17.9 % (20-40); Mean Corpuscular HGB Conc 32.1 g/dl (31.0-36.0); Mean Corpuscular Hemoglobin 32.9 pg (27.0-33.0); Mean Corpuscular Volume 102.7 fL (80.0-98.0); Monocytes Absolute Auto 0.6 X10*3/uL (0.1-1.2); Monocytes Percent Auto 8.2 % (2-11); Neutrophils Absolute Auto 4.1 x10*3/uL (2.0-8.3); Neutrophils Percent Auto 58.6 % (45-73); Platelet Count 284 X10*3/uL (160-400); Red Cell Distribution Width 13.6 % (11.0-16.0); White Blood Count 6.9 X10*3/uL (4.8-10.8)
[2023-02-27 11:55] LABS: Alanine Aminotransferase 8 U/L (0-40); Albumin Level 4.1 g/dL (3.5-5.0); Alkaline Phosphatase 80 U/L (39-117); Aspartate Amino Transferase 15 U/L (5-37); Bilirubin Direct 0.2 mg/dL (0.0-0.5); Bilirubin Total 0.5 mg/dL (0.0-1.0); Total Protein 6.2 g/dL (6.5-8.0)
== END 2023-02-27 08:54 | disposition home or self-care (01) ==
LOC: HO.HMGCLR 08:53
PROVIDERS: Visit Provider Internal Medicine
DX: K50.812 Crohn's disease of both small and large intestine with intestinal obstruction (principal)
CPT/HCPCS: 36415; 80076; 85025

== ENCOUNTER 2023-04-07 07:26 | Day surgery (SDC) | payer MEDICARE, SELFPAY ==
--- NOTE | 2023-04-06 14:11 | HO.ANESPROP2 ---
Documented by User: Tere Segura NP 04/06/23 14:13 HPI - Anesthesia Eval Consult details Narrative: 67yo M for Colonoscopy Last K = 2.9 in 2020. Hx hypokalemia. Repeat DOS. PMFSH Active Problems Active Problems: All Active Problems (Updated 02/18/21 @ 11:23 by Bethel Mitchell MD) Hypokalemia (Acute) Vitamin B 12 deficiency (Acute) Intra-abdominal abscess (Acute) Exacerbation of Crohn's disease with abscess (Acute) Past Medical History Medical History Abdominal adhesions Crohn's disease SBO (small bowel obstruction) Surgical History Surgical History H/O resection of small bowel History of appendectomy Social History Social History Household Members: Spouse Housing: House Do you presently have visiting nurse or other home services: No Patient Tobacco Use Status: Current someday Tobacco user Second Hand Smoke Exposure: No Use of substances other than those prescribed or required for medical reasons: No Are you DNR?: No Advance Directives: No Advance Directives Information Provided: Yes Advance Directives Date on File: 01/28/21 Recently lost weight without trying: No Nutrition Risks: No Nutritional Risk service: No Current occupational status: retired Meds Allergies Allergy/AdvReac Type Severity Reaction Status Date / Time Penicillins [PENICILLINS] Allergy Mild RASH Verified 02/18/21 11:23 Exam Exam Date and Time: April 06, 2023 1411 Pertinent Lab Results Pertinent Lab Results: Laboratory Tests 02/27/23 08:59 WBC 6.9 Hgb 13.5 L Hct 42.1 Plt Count 284 Assessment and Plan Assessment Anesthesia Assessment: Chart Reviewed Documented by User: Luci Ball MD 04/07/23 08:44 PMFSH Past Medical History Medical History Abdominal adhesions Crohn's disease SBO (small bowel obstruction) Family History Family history of problems with anesthesia: No Surgical History Surgical History H/O resection of small bowel History of appendectomy History of Problems with Anesthesia: No Social History Social History Household Members: Spouse Housing: House Do you presently have visiting nurse or other home services: No Patient Tobacco Use Status: Current someday Tobacco user Second Hand Smoke Exposure: No Use of substances other than those prescribed or required for medical reasons: No Are you DNR?: No Advance Directives: No Advance Directives Information Provided: Yes Advance Directives Date on File: 01/28/21 Recently lost weight without trying: No Nutrition Risks: No Nutritional Risk service: No Current occupational status: retired Meds Allergies Allergy/AdvReac Type Severity Reaction Status Date / Time Penicillins [PENICILLINS] Allergy Mild RASH Verified 02/18/21 11:23 Exam Airway Mallampati Class: II TM Dist: >3cm Neck ROM: Full Denture: Upper and Lower Heart: rrr Lungs: cta Assessment and Plan Assessment Anesthesia Assessment: Anesthesia Plan Discussed Final Anesthetic Review Family History of Problems with Anesthesia: No History of Problems with Anesthesia: No NPO: Yes ASA Class: III Final Preanesthetic Review: No Changes in Pt Med Stat, Meds/Allgs Chart Reviewed, Consent Obtained/Reviewed and Anes Risks/Benef Reviewed Patient Risk: Low Procedure Risk: Low Anesthetic Plan Anesthetic Plan: MAC: Disposition: Standard PACU
[2023-04-07 07:37] VITALS: BMI 21.3
[2023-04-07 07:51] VITALS: BP 144/72; PULSE 88; RESP 16; TEMP 36.5; O2SAT 97
[2023-04-07 07:56] LABS: Anion Gap 12 (12-20); Blood Urea Nitrogen 9 mg/dL (9-16); Calcium 9.1 mg/dL (8.4-10.2); Carbon Dioxide 25 mmol/L (22-29); Chloride 106 mmol/L (96-108); Estimated Glomerular Filt Rate > 60; Glucose Fasting 97 mg/dL (60-99); Potassium 4.7 mmol/L (3.3-5.1); Sodium 138 mmol/L (135-145)
[2023-04-07 07:58] LABS: INTERNATIONAL NORM RATIO 0.9 (0.9-1.1); Prothrombin Time 10.5 SEC (10.0-13.1)
[2023-04-07] MEDS: Lactated Ringers 1,000 ML 100 ML IVCONT (08:04)
[2023-04-07 09:50] VITALS: BP 90/57; PULSE 70; RESP 16; TEMP 36.8; O2SAT 97
--- NOTE | 2023-04-07 09:54 | PM.OP ---
Brief Operative Note Date of Service: 04/07/23 Pre-op diagnosis: Screening Post-op diagnosis: other (Crohn's of Small Intestine) Procedure: Colonoscopy to the anastomosis and small intestine Surgeon: Alexis Hernandez Anesthesia: MAC Was an Case Finishing Machine Adjuster used for this Procedure?: No Estimated blood loss (mL): 0 Urine output (mL): 0 Pathology: none sent Condition: stable Disposition: PACU
[2023-04-07 10:05] VITALS: BP 101/75; PULSE 74; RESP 16; TEMP 36.8; O2SAT 97
--- NOTE | 2023-04-07 10:35 | OP_ITS ---
DATE OF SERVICE: 04/07/2023 SURGEON: Alexis Hernandez MD INDICATIONS: The patient presents for followup of colorectal cancer screening. Full consent has been obtained from him for this, including risks of bleeding and perforation. PREOPERATIVE DIAGNOSIS: Colorectal cancer screening. POSTOPERATIVE DIAGNOSIS: PROCEDURE PERFORMED: Colonoscopy to the anastomosis and small bowel. ESTIMATED BLOOD LOSS: COMPLICATIONS: ANESTHESIA: Monitored anesthesia care. ASSISTANTS: SPECIMENS: POSTOPERATIVE DIAGNOSES: Colorectal cancer screening, normal anastomosis, Crohn's disease of the small bowel, diverticulosis and internal hemorrhoids. DESCRIPTION OF PROCEDURE: The patient was placed in the left decubitus position. The digital rectal exam revealed no perianal disease. The Olympus video pediatric colonoscope was entered into the rectum and advanced easily to the level of the anastomosis at approximately 70 to 80 cm. The anastomosis was patent and appeared normal. The small bowel mucosa appeared normal, although with some small erosions. I was able to cannulate about 5 cm into the small bowel, but could not proceed further, although I did not visualize any sign of a stricture. I think the advancement of the scope was limited by adhesions. The scope was withdrawn back into the colon. The anastomosis was patent, and there was no sign of any inflammation. The scope was then slowly withdrawn assessing all mucosal surfaces carefully. Preparation was excellent. I did not visualize any sign of polyps, colitis, nor angiodysplasia. There were scattered diverticulae in the descending and sigmoid colon. In the rectum, the scope was retroflexed visualizing internal hemorrhoids, but no other pathology. The rectal mucosa appeared normal. The scope was straightened and withdrawn from the patient. He tolerated the procedure well and was returned to the recovery area in stable condition. IMPRESSION: 1. Crohn's disease of the small bowel. 2. Normal anastomosis. 3. Diverticulosis. 4. Internal hemorrhoids. PLAN: The patient will continue his azathioprine at the current dosage. He has been off his biologic agent Stelara for over 6 months now and is doing fine without it. He will be observed at this point and see me in 6 months for a followup visit. I would recommend a repeat colonoscopy for screening in 10 years. He was advised to avoid all aspirin and NSAIDs long-term due to the history of Crohn's disease. This has been discussed with his . MD RONAN Wang/DOYLE / [id number] MTDD
== END 2023-04-07 10:44 | disposition home or self-care (01) ==
PROVIDERS: Nurse Practitioner; Visit Provider Internal Medicine
PROC: 0DJD8ZZ Inspection of Lower Intestinal Tract, Via Natural or Artificial Opening Endoscopic (ICD-10-PCS; CPT 45378; principal; 2023-04-07 08:40)
DX: Z12.11 Encounter for screening for malignant neoplasm of colon (principal); K50.00 Crohn's disease of small intestine without complications; K57.30 Diverticulosis of large intestine without perforation or abscess without bleeding; K64.8 Other hemorrhoids; K66.0 Peritoneal adhesions (postprocedural) (postinfection); Z90.49 Acquired absence of other specified parts of digestive tract; Z98.0 Intestinal bypass and anastomosis status; Z79.899 Other long term (current) drug therapy
CPT/HCPCS: 45330; 36415; 80048; 85610

== ENCOUNTER 2023-05-01 09:47 | Outpatient (REF) | payer MEDICARE, SELFPAY ==
[2023-05-01 13:31] LABS: MANUAL DIFF FLAG NO
[2023-05-01 13:54] LABS: Basophils Percent Auto 0.5 % (0-2); Eosinophils Absolute Auto 0.9 X10*3/uL (0.0-0.4); Eosinophils Percent Auto 11.3 % (0-4); Hematocrit 41.8 % (42.0-52.0); Hemoglobin 13.4 g/dl (14.0-18.0); Imm Gran Abs Auto 0.03 X10*3/uL (0.00-0.03); Imm Gran Pct Auto 0.4 % (0.0-0.4); Lymphocytes Percent Auto 12.5 % (20-40); Mean Corpuscular HGB Conc 32.1 g/dl (31.0-36.0); Mean Corpuscular Hemoglobin 33.3 pg (27.0-33.0); Mean Corpuscular Volume 103.7 fL (80.0-98.0); Mean Platelet Volume 10.3 fL (9.4-12.4); Monocytes Absolute Auto 0.5 X10*3/uL (0.1-1.2); Monocytes Percent Auto 6.2 % (2-11); Neutrophils Absolute Auto 5.6 x10*3/uL (2.0-8.3); Neutrophils Percent Auto 69.1 % (45-73); Platelet Count 276 X10*3/uL (160-400); Red Blood Count 4.03 X10*6/uL (4.60-5.80); Red Cell Distribution Width 13.6 % (11.0-16.0); White Blood Count 8.1 X10*3/uL (4.8-10.8)
[2023-05-01 14:38] LABS: Alanine Aminotransferase 10 U/L (0-40); Albumin Level 4.1 g/dL (3.5-5.0); Alkaline Phosphatase 67 U/L (39-117); Aspartate Amino Transferase 18 U/L (5-37); Bilirubin Direct 0.2 mg/dL (0.0-0.5); Bilirubin Total 0.4 mg/dL (0.0-1.0); Total Protein 6.5 g/dL (6.5-8.0)
== END 2023-05-01 09:48 | disposition home or self-care (01) ==
LOC: HO.HMGCLR 09:47
PROVIDERS: Visit Provider Internal Medicine
DX: K50.012 Crohn's disease of small intestine with intestinal obstruction (principal)
CPT/HCPCS: 36415; 80076; 85025

== ENCOUNTER 2023-06-28 09:36 | Outpatient (REF) | payer MEDICARE, SELFPAY ==
[2023-06-28 11:57] LABS: MANUAL DIFF FLAG NO
[2023-06-28 12:10] LABS: Basophils Absolute Auto 0.1 X10*3/uL (0.0-0.2); Basophils Percent Auto 0.8 % (0-2); Eosinophils Absolute Auto 1.2 X10*3/uL (0.0-0.4); Eosinophils Percent Auto 16.4 % (0-4); Hematocrit 41.2 % (42.0-52.0); Hemoglobin 13.2 g/dl (14.0-18.0); Imm Gran Abs Auto 0.03 X10*3/uL (0.00-0.03); Imm Gran Pct Auto 0.4 % (0.0-0.4); Lymphocytes Absolute Auto 1.1 X10*3/uL (1.2-4.9); Mean Corpuscular Hemoglobin 33.8 pg (27.0-33.0); Mean Corpuscular Volume 105.6 fL (80.0-98.0); Mean Platelet Volume 10.3 fL (9.4-12.4); Monocytes Absolute Auto 0.6 X10*3/uL (0.1-1.2); Monocytes Percent Auto 7.4 % (2-11); Neutrophils Absolute Auto 4.6 x10*3/uL (2.0-8.3); Platelet Count 287 X10*3/uL (160-400); Red Cell Distribution Width 13.7 % (11.0-16.0); White Blood Count 7.6 X10*3/uL (4.8-10.8)
[2023-06-28 12:41] LABS: Alanine Aminotransferase 9 U/L (0-40); Alkaline Phosphatase 71 U/L (39-117); Aspartate Amino Transferase 19 U/L (5-37); Bilirubin Direct 0.2 mg/dL (0.0-0.5); Bilirubin Total 0.4 mg/dL (0.0-1.0); Total Protein 6.4 g/dL (6.5-8.0)
== END 2023-06-28 09:37 | disposition home or self-care (01) ==
LOC: HO.HMGCLR 09:36
PROVIDERS: Visit Provider Internal Medicine
DX: K50.012 Crohn's disease of small intestine with intestinal obstruction (principal)
CPT/HCPCS: 36415; 80076; 85025

== ENCOUNTER 2023-09-25 09:26 | Outpatient (REF) | payer MEDICARE, SELFPAY ==
[2023-09-25 11:23] LABS: MANUAL DIFF FLAG NO
[2023-09-25 11:40] LABS: Basophils Percent Auto 0.7 % (0-2); Eosinophils Absolute Auto 0.9 X10*3/uL (0.0-0.4); Eosinophils Percent Auto 14.2 % (0-4); Hematocrit 42.4 % (42.0-52.0); Hemoglobin 13.8 g/dl (14.0-18.0); Imm Gran Abs Auto 0.01 X10*3/uL (0.00-0.03); Imm Gran Pct Auto 0.2 % (0.0-0.4); Lymphocytes Absolute Auto 1.3 X10*3/uL (1.2-4.9); Lymphocytes Percent Auto 21.8 % (20-40); Mean Corpuscular HGB Conc 32.5 g/dl (31.0-36.0); Mean Corpuscular Hemoglobin 33.9 pg (27.0-33.0); Mean Corpuscular Volume 104.2 fL (80.0-98.0); Mean Platelet Volume 10.2 fL (9.4-12.4); Monocytes Absolute Auto 0.5 X10*3/uL (0.1-1.2); Monocytes Percent Auto 7.4 % (2-11); Neutrophils Absolute Auto 3.4 x10*3/uL (2.0-8.3); Neutrophils Percent Auto 55.7 % (45-73); Platelet Count 290 X10*3/uL (160-400); Red Blood Count 4.07 X10*6/uL (4.60-5.80); Red Cell Distribution Width 13.6 % (11.0-16.0); White Blood Count 6.1 X10*3/uL (4.8-10.8)
[2023-09-25 12:30] LABS: Alanine Aminotransferase 10 U/L (0-40); Albumin Level 4.2 g/dL (3.5-5.0); Alkaline Phosphatase 78 U/L (39-117); Aspartate Amino Transferase 18 U/L (5-37); Bilirubin Direct 0.2 mg/dL (0.0-0.5); Bilirubin Total 0.4 mg/dL (0.0-1.0); Total Protein 6.9 g/dL (6.5-8.0)
== END 2023-09-25 09:27 | disposition home or self-care (01) ==
LOC: HO.HMGCLDS 09:26
PROVIDERS: Visit Provider Internal Medicine
DX: K50.019 Crohn's disease of small intestine with unspecified complications (principal); Z51.81 Encounter for therapeutic drug level monitoring
CPT/HCPCS: 36415; 80076; 85025

== ENCOUNTER 2024-01-31 08:39 | Outpatient (REF) | payer MEDICARE, SELFPAY ==
[2024-01-31 10:20] LABS: MANUAL DIFF FLAG NO
[2024-01-31 10:36] LABS: Basophils Percent Auto 0.6 % (0-2); Eosinophils Absolute Auto 0.9 X10*3/uL (0.0-0.4); Eosinophils Percent Auto 14.7 % (0-4); Hematocrit 43.3 % (42.0-52.0); Hemoglobin 14.3 g/dl (14.0-18.0); Imm Gran Abs Auto 0.02 X10*3/uL (0.00-0.03); Imm Gran Pct Auto 0.3 % (0.0-0.4); Lymphocytes Absolute Auto 1.2 X10*3/uL (1.2-4.9); Mean Corpuscular Volume 106.1 fL (80.0-98.0); Mean Platelet Volume 10.3 fL (9.4-12.4); Monocytes Absolute Auto 0.5 X10*3/uL (0.1-1.2); Monocytes Percent Auto 7.4 % (2-11); Neutrophils Absolute Auto 3.7 x10*3/uL (2.0-8.3); Platelet Count 278 X10*3/uL (160-400); Red Blood Count 4.08 X10*6/uL (4.60-5.80); Red Cell Distribution Width 13.2 % (11.0-16.0); White Blood Count 6.3 X10*3/uL (4.8-10.8)
[2024-01-31 10:49] LABS: Alanine Aminotransferase 13 U/L (0-40); Albumin Level 4.3 g/dL (3.5-5.0); Alkaline Phosphatase 73 U/L (39-117); Aspartate Amino Transferase 23 U/L (5-37); Bilirubin Direct 0.2 mg/dL (0.0-0.5); Bilirubin Total 0.4 mg/dL (0.0-1.0); Total Protein 6.9 g/dL (6.5-8.0)
== END 2024-01-31 08:40 | disposition home or self-care (01) ==
LOC: HO.HMGCLR 08:39
PROVIDERS: Visit Provider Internal Medicine
DX: K50.019 Crohn's disease of small intestine with unspecified complications (principal); Z79.899 Other long term (current) drug therapy
CPT/HCPCS: 36415; 80076; 85025

== ENCOUNTER 2024-03-06 09:25 | Outpatient (REF) | payer MEDICARE, SELFPAY ==
[2024-03-06 10:15] LABS: MANUAL DIFF FLAG NO
[2024-03-06 10:26] LABS: Basophils Percent Auto 0.7 % (0-2); Eosinophils Absolute Auto 0.6 X10*3/uL (0.0-0.4); Eosinophils Percent Auto 11.1 % (0-4); Hematocrit 39.4 % (42.0-52.0); Hemoglobin 12.9 g/dl (14.0-18.0); Imm Gran Abs Auto 0.02 X10*3/uL (0.00-0.03); Imm Gran Pct Auto 0.4 % (0.0-0.4); Lymphocytes Absolute Auto 0.9 X10*3/uL (1.2-4.9); Lymphocytes Percent Auto 16.4 % (20-40); Mean Corpuscular HGB Conc 32.7 g/dl (31.0-36.0); Mean Corpuscular Hemoglobin 34.6 pg (27.0-33.0); Mean Corpuscular Volume 105.6 fL (80.0-98.0); Mean Platelet Volume 9.8 fL (9.4-12.4); Monocytes Absolute Auto 0.5 X10*3/uL (0.1-1.2); Monocytes Percent Auto 9.5 % (2-11); Neutrophils Absolute Auto 3.4 x10*3/uL (2.0-8.3); Neutrophils Percent Auto 61.9 % (45-73); Platelet Count 269 X10*3/uL (160-400); Red Blood Count 3.73 X10*6/uL (4.60-5.80); Red Cell Distribution Width 13.4 % (11.0-16.0); White Blood Count 5.5 X10*3/uL (4.8-10.8)
[2024-03-06 11:12] LABS: Alanine Aminotransferase 13 U/L (0-40); Albumin Level 3.9 g/dL (3.5-5.0); Alkaline Phosphatase 65 U/L (39-117); Aspartate Amino Transferase 24 U/L (5-37); Bilirubin Direct 0.2 mg/dL (0.0-0.5); Bilirubin Total 0.4 mg/dL (0.0-1.0); Total Protein 6.3 g/dL (6.5-8.0)
== END 2024-03-06 09:26 | disposition home or self-care (01) ==
LOC: HO.HMGCLR 09:25
PROVIDERS: Visit Provider Internal Medicine
DX: K50.119 Crohn's disease of large intestine with unspecified complications (principal); Z51.81 Encounter for therapeutic drug level monitoring
CPT/HCPCS: 36415; 80076; 85025

== ENCOUNTER 2024-04-15 07:48 | Outpatient (REF) | payer MEDICARE, SELFPAY ==
[2024-04-15 11:41] LABS: MANUAL DIFF FLAG NO
[2024-04-15 11:55] LABS: Basophils Percent Auto 0.6 % (0-2); Eosinophils Absolute Auto 0.4 X10*3/uL (0.0-0.4); Eosinophils Percent Auto 8.7 % (0-4); Hematocrit 40.8 % (42.0-52.0); Imm Gran Abs Auto 0.02 X10*3/uL (0.00-0.03); Imm Gran Pct Auto 0.4 % (0.0-0.4); Lymphocytes Absolute Auto 0.7 X10*3/uL (1.2-4.9); Mean Corpuscular HGB Conc 31.9 g/dl (31.0-36.0); Mean Corpuscular Hemoglobin 34.2 pg (27.0-33.0); Mean Corpuscular Volume 107.4 fL (80.0-98.0); Mean Platelet Volume 9.8 fL (9.4-12.4); Monocytes Absolute Auto 0.5 X10*3/uL (0.1-1.2); Monocytes Percent Auto 9.1 % (2-11); Neutrophils Absolute Auto 3.3 x10*3/uL (2.0-8.3); Neutrophils Percent Auto 66.2 % (45-73); Platelet Count 328 X10*3/uL (160-400); White Blood Count 4.9 X10*3/uL (4.8-10.8)
[2024-04-15 12:26] LABS: Alanine Aminotransferase 7 U/L (0-40); Albumin Level 3.8 g/dL (3.5-5.0); Alkaline Phosphatase 71 U/L (39-117); Aspartate Amino Transferase 18 U/L (5-37); Bilirubin Direct 0.2 mg/dL (0.0-0.5); Bilirubin Total 0.4 mg/dL (0.0-1.0); Total Protein 6.5 g/dL (6.5-8.0)
== END 2024-04-15 07:49 | disposition home or self-care (01) ==
LOC: HO.HMGCLR 07:48
PROVIDERS: Visit Provider Internal Medicine
DX: K50.019 Crohn's disease of small intestine with unspecified complications (principal); Z51.81 Encounter for therapeutic drug level monitoring
CPT/HCPCS: 36415; 80076; 85025

== ENCOUNTER 2024-07-04 09:19 | Outpatient (REF) | payer MEDICARE, SELFPAY ==
[2024-07-04 13:31] LABS: MANUAL DIFF FLAG NO
[2024-07-04 13:45] LABS: Basophils Percent Auto 0.6 % (0-2); Eosinophils Absolute Auto 1.1 X10*3/uL (0.0-0.4); Eosinophils Percent Auto 17.1 % (0-4); Hematocrit 40.3 % (42.0-52.0); Hemoglobin 13.3 g/dl (14.0-18.0); Imm Gran Abs Auto 0.01 X10*3/uL (0.00-0.03); Imm Gran Pct Auto 0.1 % (0.0-0.4); Lymphocytes Absolute Auto 1.1 X10*3/uL (1.2-4.9); Lymphocytes Percent Auto 16.9 % (20-40); Mean Corpuscular Hemoglobin 35.9 pg (27.0-33.0); Mean Corpuscular Volume 108.9 fL (80.0-98.0); Mean Platelet Volume 9.9 fL (9.4-12.4); Monocytes Absolute Auto 0.5 X10*3/uL (0.1-1.2); Monocytes Percent Auto 7.2 % (2-11); Neutrophils Absolute Auto 3.9 x10*3/uL (2.0-8.3); Neutrophils Percent Auto 58.1 % (45-73); Platelet Count 277 X10*3/uL (160-400); Red Cell Distribution Width 14.5 % (11.0-16.0); White Blood Count 6.7 X10*3/uL (4.8-10.8)
[2024-07-04 14:08] LABS: Alanine Aminotransferase 11 U/L (0-40); Alkaline Phosphatase 69 U/L (39-117); Aspartate Amino Transferase 20 U/L (5-37); Bilirubin Direct 0.2 mg/dL (0.0-0.5); Bilirubin Total 0.4 mg/dL (0.0-1.0); Total Protein 6.4 g/dL (6.5-8.0)
== END 2024-07-04 09:20 | disposition home or self-care (01) ==
LOC: HO.HMGCLR 09:19
PROVIDERS: Visit Provider Internal Medicine
DX: K50.019 Crohn's disease of small intestine with unspecified complications (principal); Z51.81 Encounter for therapeutic drug level monitoring
CPT/HCPCS: 36415; 80076; 85025

== ENCOUNTER 2024-08-28 09:12 | Outpatient (REF) | payer MEDICARE, SELFPAY ==
[2024-08-28 10:42] LABS: MANUAL DIFF FLAG NO
[2024-08-28 10:50] LABS: Basophils Percent Auto 0.4 % (0-2); Eosinophils Absolute Auto 0.8 X10*3/uL (0.0-0.4); Eosinophils Percent Auto 11.2 % (0-4); Hematocrit 41.3 % (42.0-52.0); Hemoglobin 13.8 g/dl (14.0-18.0); Imm Gran Abs Auto 0.04 X10*3/uL (0.00-0.03); Imm Gran Pct Auto 0.6 % (0.0-0.4); Lymphocytes Percent Auto 14.6 % (20-40); Mean Corpuscular HGB Conc 33.4 g/dl (31.0-36.0); Mean Corpuscular Hemoglobin 35.8 pg (27.0-33.0); Mean Platelet Volume 9.9 fL (9.4-12.4); Monocytes Absolute Auto 0.5 X10*3/uL (0.1-1.2); Monocytes Percent Auto 7.2 % (2-11); Neutrophils Absolute Auto 4.6 x10*3/uL (2.0-8.3); Platelet Count 292 X10*3/uL (160-400); Red Blood Count 3.86 X10*6/uL (4.60-5.80); Red Cell Distribution Width 13.2 % (11.0-16.0)
[2024-08-28 11:45] LABS: Alanine Aminotransferase 21 U/L (0-40); Albumin Level 4.2 g/dL (3.5-5.0); Alkaline Phosphatase 82 U/L (39-117); Aspartate Amino Transferase 34 U/L (5-37); Bilirubin Direct 0.2 mg/dL (0.0-0.5); Bilirubin Total 0.4 mg/dL (0.0-1.0); Total Protein 6.7 g/dL (6.5-8.0)
== END 2024-08-28 09:13 | disposition home or self-care (01) ==
LOC: HO.HMGCLR 09:12
PROVIDERS: Visit Provider Internal Medicine
DX: K50.019 Crohn's disease of small intestine with unspecified complications (principal); Z51.81 Encounter for therapeutic drug level monitoring
CPT/HCPCS: 36415; 80076; 85025

== ENCOUNTER 2024-10-02 09:14 | Outpatient (REF) | payer MEDICARE, SELFPAY ==
--- OUTSIDE RECORDS SUMMARY | 2024-10-02 09:18 | XMS_ITS ---
Author Organization [facility] Address [address] [place] [id number] Care Team Providers Care Rotor Blade Installer Name Role Phone Julio Cesar ARANA, Haroon Primary Care Provider Alexis Garcia Unavailable [phone] Bethel Mitchell MD Unavailable Unavailable ALLERGIES Allergen (clinical drug ingredient) Drug/Non Drug Allergy documented on EMR Reaction Allergy Type Onset Date Status Penicillin Unknown Drug Allergy Active REASON FOR VISIT Patient presents today for crohn's MEDICATIONS Medication SIG (Take, Route, Frequency, Duration) Notes Start Date End Date Status Multivitamin Active Calcium + D Active Pentasa 500 MG 2 capsules Orally Four times a day for 30 day(s) 02/02/2021 Not-Taking Stelara 90 MG/ML as directed Subcutaneous Last dose in 12/2021 Not-Taking Humira-CD/UC/HS Starter 40 MG/0.8ML 2 Pens on Day #1, 2 Pens on day # 2 then 2 Pens on Day # 15 Subcutaneous QD for 15 days 02/24/2021 Not-Taking metroNIDAZOLE 500 MG 1 tablet Orally every 8 hrs Not-Taking Humira Pen 40 MG/0.8ML 1 Pen Subcutaneous Every other week for 28 days 02/24/2021 Not-Taking azaTHIOprine 50 MG 1 1/2 tablets Orally Once a day for 90 days 02/27/2023 Active SOCIAL HISTORY Tobacco Use: Social History Observation Description Date Details (start date - stop date) Former Smoker NA - NA Sex Assigned At : Social History Observation Description Sex Assigned At Unknown Tobacco Use/Smoking Question Answer Notes Patient is a former smoker How long has it been since you last smoked? 1-5 years Alcohol Screen Question Answer Notes Did you have a drink containing alcohol in the p ast year? No Points 0 Interpretation Negative VITAL SIGNS BMI 19.63 kg/m2 04/16/2024 Blood pressure systolic 00 mm Hg 04/16/20 24 Blood pressure diastolic 00 mm Hg 024 Height 68.5 in 04/16/2024 Weight 131 lbs 04/16/2024 Encounters Encounter Location Date Provider Diagnosis [facility] [address] [place] [address] 04/16/2024 Alexis Hernandez Crohn's disease of both small and large intestine without complication K50.80 and Therapeutic drug monitoring Z51.81 ASSESSMENTS Encounter Date Diagnosis Assessment Notes Treatment Notes Treatment Clinical Notes 04/16/2024 Crohn's disease of both small and large intestine without complication (ICD-10 - K50.80) 04/16/2024 Therapeutic drug monitoring (ICD-10 - Z51.81) PLAN OF TREATMENT Pending Test Test Name Order Date Prom Thiopurine Metabolites 04/16/2024 Next Appt Details Follow Up: 6 Months, Reason: Provider Name:Alexis Hernandez , 10/17/2024 09:00:00 AM, [address], [address], [place], [phone], Progress Notes * Examination Category Sub-Category Detail Notes General Examination GENERAL APPEARANCE: pleasant , thin but well nourished, well developed, in no acute distress EYES: sclera non-icteric NECK/THYROID: no cervical lymphade nopathy, neck supple HEART: S1, S2 normal LUNGS: clear to auscultatio n bilaterally ABDOMEN: normal bowel sounds, no guarding or rigidity, no hepatosplenomegaly, no masses palpable, soft, nontender, nondistended. NEUROLOGIC: alert and oriented SKIN: nonjaundiced, no spi glenys angiomata. EXTREMITIES: no edema ORAL CAVITY: mucosa moist
--- OUTSIDE RECORDS SUMMARY | 2024-10-02 09:18 | XMS_ITS ---
Author Organization [facility] Address [address] [place] [address] Care Team Providers Care Box Folding Machine Operator Name Role Phone Julio Cesar ARANA, [place] Primary Care Provider Alexis Garcia Unavailable [phone] Bethel Mitchell MD Unavailable Unavailable REASON FOR VISIT v/m. refill of azithroprine MEDICATIONS Medication SIG (Take, Route, Fr equency, Duration) Notes Start Date End Date Status azaTHIOprine 50 MG 1 1/2 tablets Orally Once a day for 90 days 02/27/2023 Active Encounters Encounter Location Date Provider Diagnosis [facility] [address] [place] [address] [place] [phone] 03/06/2024 Alexis Hernandez PLAN OF TREATMENT Medication Medication Name Sig Start Date Stop Date Notes azaTHIOprine 50 MG 1 1/2 tablets Orally Once a day for 90 days 02/27/2023 Next Appt Details Provider Name:Alexis Hernandez , 10/17/2024 09:00:00 AM, [address] [place] [address], [address], [place], [address],
--- OUTSIDE RECORDS SUMMARY | 2024-10-02 09:18 | XMS_ITS ---
Author Organization [facility] Address [address] [place] [address] Care Team Providers Care Petrol Tanker Driver Name Role Phone Julio Cesar ARANA Haroon Primary Care Provider Alexis Garcia Unavailable [phone] Bethel Mitchell MD Unavailable Unavailable ALLERGIES Allergen (clinical drug ingredient) Drug/Non Drug Allergy documented on EMR Reaction Allergy Type Onset Date Status Penicillin Unknown Drug Allergy Active MEDICATIONS Medication SIG (Take, Route, Frequency, Duration) Notes Start Date End Date Status Humira-CD/UC/HS Starter 40 MG/0.8ML 2 Pens on Day #1, 2 Pens on day # 2 then 2 Pens on Day # 15 Subcutaneous QD for 15 days 02/24/2021 Unknown Humira Pen 40 MG/0.8ML 1 Pen Subcutaneou s Every other week for 28 days 02/24/2021 Unknown Stelara 90 MG/ML as directed Subcutaneous Last dose in 12/2021 Unknown Pentasa 500 MG 2 capsules Orally Four times a day for 30 day(s) 02/02/2021 Unknown metroNIDAZOLE 500 MG 1 tablet Orally jesus manuel ry 8 hrs Unknown Multivitamin Unknown azaTHIOprine 50 MG 1 1/2 tablets Orally Once a day for 90 days 02/27/2023 Unknown Calcium + D Unknown Encounters Encounter Location Date Provider Diagnosis [facility] [address] [place] [phone] 09/23/2024 Alexis Hernandez PLAN OF TREATMENT Next Appt Details Provider Name:Alexis Hernandez , 10/17/2024 09:00:00 AM, [address], [address], [place], [address],
--- OUTSIDE RECORDS SUMMARY | 2024-10-02 09:19 | XMS_ITS | Patient Health Record ---
Author Organization [facility] Address [address] [place] [address] Care Team Providers Care Sexual Assault Nurse Name Role Phone Julio Cesar ARANA, Haroon Primary Care Provider Alexis Garcia Unavailable [phone] Bethel Mitchell MD Unavailable Unavailable ALLERGIES Allergen (clinical drug ingredient) Drug/Non Drug Allergy documented on EMR Reaction Allergy Type Onset Date Status Penicillin Unknown Drug Allergy Active RESULTS Component Value Reference Range Notes Complete Blood Count Auto Di ff Reviewed date:01/31/2024 09:07:54 PM Interpretation: Performing Lab:[facility], [address] [place] [phone] Notes/Report: White Blood Count 6.3 4.8-10.8 X10*3/uL Red Blood Count 4.08 4.60-5.80 X10*6/uL Hemoglobin 14.3 14.0-18.0 g/dl Hematocrit 43.3 42.0-52.0 % Mean Corpuscular Volume 106.1 80.0-98.0 fL Mean Corpuscular Hemoglobin 35.0 27.0-33.0 pg Mean Corpuscular HGB Conc 33.0 31.0-36.0 g/dl Red Cell Distribution Width 13.2 11.0-16.0 % Platelet Count 278 160-400 X10*3/uL Mean Platelet Volume 10.3 9.4-12.4 fL Neutrophils Percent Auto 58.0 45-73 % Imm Gran Pct Auto 0.3 0.0-0.4 % Lymphocytes Percent Auto 19.0 20-40 % Monocytes Percent Auto 7.4 2-11 % Eosinophils Percent Auto 14.7 0-4 % Basophils Percent Auto 0.6 0-2 % NRBC Pct Auto 0.0 0.0-0.2 /100WBC Neutrophils Absolute Auto 3.7 2.0-8.3 x10*3/u L Imm Gran Abs Auto 0.02 0.00-0.03 X10*3/uL Lymphocytes Absolute Auto 1.2 1.2-4.9 X10*3/u L Monocytes Absolute Auto 0.5 0.1-1.2 X10*3/uL Eosinophils Absolute Auto 0.9 0.0-0.4 X10*3/u L Basophils Absolute Auto 0.0 0.0-0.2 X10*3/uL NRBC Abs Auto 0.000 0.0-0.012 X10*3/uL Liver Panel Reviewed date:01/31/2024 09:08:12 PM Interpretation: Performing Lab:[address] [phone] Notes/Report: Bilirubin Total 0.4 0.0-1.0 mg/dL Bilirubin Direct 0.2 0.0-0.5 mg/dL Aspartate Amino Transferase 23 5-37 U/L Alanine Aminotransferase 13 0-40 U/L Total Protein 6.9 6.5-8.0 g/dL Albumin Level 4.3 3.5-5.0 g/dL Alkaline Phosphatase 73 39-117 U/L Complete Blood Count Auto Di ff Reviewed date:03/06/2024 05:26:20 PM Interpretation: Performing Lab:[facility], [address] [place] [phone] Notes/Report: White Blood Count 5.5 4.8-10.8 X10*3/uL Red Blood Count 3.73 4.60-5.80 X10*6/uL Hemoglobin 12.9 14.0-18.0 g/dl Hematocrit 39.4 42.0-52.0 % Mean Corpuscular Volume 105.6 80.0-98.0 fL Mean Corpuscular Hemoglobin 34.6 27.0-33.0 pg Mean Corpuscular HGB Conc 32.7 31.0-36.0 g/dl Red Cell Distribution Width 13.4 11.0-16.0 % Platelet Count 269 160-400 X10*3/uL Mean Platelet Volume 9.8 9.4-12.4 fL Neutrophils Percent Auto 61.9 45-73 % Imm Gran Pct Auto 0.4 0.0-0.4 % Lymphocytes Percent Auto 16.4 20-40 % Monocytes Percent Auto 9.5 2-11 % Eosinophils Percent Auto 11.1 0-4 % Basophils Percent Auto 0.7 0-2 % NRBC Pct Auto 0.0 0.0-0.2 /100WBC Neutrophils Absolute Auto 3.4 2.0-8.3 x10*3/u L Imm Gran Abs Auto 0.02 0.00-0.03 X10*3/uL Lymphocytes Absolute Auto 0.9 1.2-4.9 X10*3/u L Monocytes Absolute Auto 0.5 0.1-1.2 X10*3/uL Eosinophils Absolute Auto 0.6 0.0-0.4 X10*3/u L Basophils Absolute Auto 0.0 0.0-0.2 X10*3/uL NRBC Abs Auto 0.000 0.0-0.012 X10*3/uL Liver Panel Reviewed date:03/06/2024 05:26:40 PM Interpretation: Performing Lab:[address] [phone] Notes/Report: Bilirubin Total 0.4 0.0-1.0 mg/dL Bilirubin Direct 0.2 0.0-0.5 mg/dL Aspartate Amino Transferase 24 5-37 U/L Alanine Aminotransferase 13 0-40 U/L Total Protein 6.3 6.5-8.0 g/dL Albumin Level 3.9 3.5-5.0 g/dL Alkaline Phosphatase 65 39-117 U/L Complete Blood Count Auto Di ff Reviewed date:04/15/2024 10:37:58 PM Interpretation: Performing Lab:[facility], [address] [place] [phone] Notes/Report: White Blood Count 4.9 4.8-10.8 X10*3/uL Red Blood Count 3.80 4.60-5.80 X10*6/uL Hemoglobin 13.0 14.0-18.0 g/dl Hematocrit 40.8 42.0-52.0 % Mean Corpuscular Volume 107.4 80.0-98.0 fL Mean Corpuscular Hemoglobin 34.2 27.0-33.0 pg Mean Corpuscular HGB Conc 31.9 31.0-36.0 g/dl Red Cell Distribution Width 14.0 11.0-16.0 % Platelet Count 328 160-400 X10*3/uL Mean Platelet Volume 9.8 9.4-12.4 fL Neutrophils Percent Auto 66.2 45-73 % Imm Gran Pct Auto 0.4 0.0-0.4 % Lymphocytes Percent Auto 15.0 20-40 % Monocytes Percent Auto 9.1 2-11 % Eosinophils Percent Auto 8.7 0-4 % Basophils Percent Auto 0.6 0-2 % NRBC Pct Auto 0.0 0.0-0.2 /100WBC Neutrophils Absolute Auto 3.3 2.0-8.3 x10*3/u L Imm Gran Abs Auto 0.02 0.00-0.03 X10*3/uL Lymphocytes Absolute Auto 0.7 1.2-4.9 X10*3/u L Monocytes Absolute Auto 0.5 0.1-1.2 X10*3/uL Eosinophils Absolute Auto 0.4 0.0-0.4 X10*3/u L Basophils Absolute Auto 0.0 0.0-0.2 X10*3/uL NRBC Abs Auto 0.000 0.0-0.012 X10*3/uL Liver Panel Reviewed date:04/15/2024 10:50:42 PM Interpretation: Performing Lab:[address] [phone] Notes/Report: Bilirubin Total 0.4 0.0-1.0 mg/dL Bilirubin Direct 0.2 0.0-0.5 mg/dL Aspartate Amino Transferase 18 5-37 U/L Alanine Aminotransferase 7 0-40 U/L Total Protein 6.5 6.5-8.0 g/dL Albumin Level 3.8 3.5-5.0 g/dL Alkaline Phosphatase 71 39-117 U/L Complete Blood Count Auto Di ff Reviewed date:07/04/2024 04:35:40 PM Interpretation: Performing Lab:[address] [phone] Notes/Report: White Blood Count 6.7 4.8-10.8 X10*3/uL Red Blood Count 3.70 4.60-5.80 X10*6/uL Hemoglobin 13.3 14.0-18.0 g/dl Hematocrit 40.3 42.0-52.0 % Mean Corpuscular Volume 108.9 80.0-98.0 fL Mean Corpuscular Hemoglobin 35.9 27.0-33.0 pg Mean Corpuscular HGB Conc 33.0 31.0-36.0 g/dl Red Cell Distribution Width 14.5 11.0-16.0 % Platelet Count 277 160-400 X10*3/uL Mean Platelet Volume 9.9 9.4-12.4 fL Neutrophils Percent Auto 58.1 45-73 % Imm Gran Pct Auto 0.1 0.0-0.4 % Lymphocytes Percent Auto 16.9 20-40 % Monocytes Percent Auto 7.2 2-11 % Eosinophils Percent Auto 17.1 0-4 % Basophils Percent Auto 0.6 0-2 % NRBC Pct Auto 0.0 0.0-0.2 /100WBC Neutrophils Absolute Auto 3.9 2.0-8.3 x10*3/u L Imm Gran Abs Auto 0.01 0.00-0.03 X10*3/uL Lymphocytes Absolute Auto 1.1 1.2-4.9 X10*3/u L Monocytes Absolute Auto 0.5 0.1-1.2 X10*3/uL Eosinophils Absolute Auto 1.1 0.0-0.4 X10*3/u L Basophils Absolute Auto 0.0 0.0-0.2 X10*3/uL NRBC Abs Auto 0.000 0.0-0.012 X10*3/uL Liver Panel Reviewed date:07/04/2024 04:34:56 PM Interpretation: Performing Lab:[facility], [address] [place] [phone] Notes/Report: Bilirubin Total 0.4 0.0-1.0 mg/dL Bilirubin Direct 0.2 0.0-0.5 mg/dL Aspartate Amino Transferase 20 5-37 U/L Alanine Aminotransferase 11 0-40 U/L Total Protein 6.4 6.5-8.0 g/dL Albumin Level 4.0 3.5-5.0 g/dL Alkaline Phosphatase 69 39-117 U/L Complete Blood Count Auto Di ff Reviewed date:08/28/2024 05:58:52 PM Interpretation: Performing Lab:[address] [phone] Notes/Report: White Blood Count 7.0 4.8-10.8 X10*3/uL Red Blood Count 3.86 4.60-5.80 X10*6/uL Hemoglobin 13.8 14.0-18.0 g/dl Hematocrit 41.3 42.0-52.0 % Mean Corpuscular Volume 107.0 80.0-98.0 fL Mean Corpuscular Hemoglobin 35.8 27.0-33.0 pg Mean Corpuscular HGB Conc 33.4 31.0-36.0 g/dl Red Cell Distribution Width 13.2 11.0-16.0 % Platelet Count 292 160-400 X10*3/uL Mean Platelet Volume 9.9 9.4-12.4 fL Neutrophils Percent Auto 66.0 45-73 % Imm Gran Pct Auto 0.6 0.0-0.4 % Lymphocytes Percent Auto 14.6 20-40 % Monocytes Percent Auto 7.2 2-11 % Eosinophils Percent Auto 11.2 0-4 % Basophils Percent Auto 0.4 0-2 % NRBC Pct Auto 0.0 0.0-0.2 /100WBC Neutrophils Absolute Auto 4.6 2.0-8.3 x10*3/u L Imm Gran Abs Auto 0.04 0.00-0.03 X10*3/uL Lymphocytes Absolute Auto 1.0 1.2-4.9 X10*3/u L Monocytes Absolute Auto 0.5 0.1-1.2 X10*3/uL Eosinophils Absolute Auto 0.8 0.0-0.4 X10*3/u L Basophils Absolute Auto 0.0 0.0-0.2 X10*3/uL NRBC Abs Auto 0.000 0.0-0.012 X10*3/uL Liver Panel Reviewed date:08/29/2024 07:51:31 PM Interpretation: Performing Lab:[facility], [address] [place] [phone] Notes/Report: Bilirubin Total 0.4 0.0-1.0 mg/dL Bilirubin Direct 0.2 0.0-0.5 mg/dL Aspartate Amino Transferase 34 5-37 U/L Alanine Aminotransferase 21 0-40 U/L Total Protein 6.7 6.5-8.0 g/dL Albumin Level 4.2 3.5-5.0 g/dL Alkaline Phosphatase 82 39-117 U/L REASON FOR REFERRAL No Information MEDICATIONS Medication SIG (Take, Route, Frequency, Duration) Notes Start Date End Date Status Humira-CD/UC/HS Starter 40 MG/0.8ML 2 Pens on Day #1, 2 Pens on day # 2 then 2 Pens on Day # 15 Subcutaneous QD for 15 days 02/24/2021 Unknown Humira Pen 40 MG/0.8ML 1 Pen Subcutaneou s Every other week for 28 days 02/24/2021 Unknown Multivitamin Unknown azaTHIOprine 50 MG 1 1/2 tablets Orally Once a day for 90 days 02/27/2023 Unknown Stelara 90 MG/ML as directed Subcutaneous Last dose in 12/2021 Unknown Pentasa 500 MG 2 capsules Orally Four times a day for 30 day(s) 02/02/2021 Unknown Calcium + D Unknown metroNIDAZOLE 500 MG 1 tablet Orally jesus manuel ry 8 hrs Unknown IMMUNIZATIONS Vaccine Route Administration Date Status Comme nts Influenza Unknown 04/02/2019 Refused SOCIAL HISTORY Tobacco Use: Social History Observation [...] No Points 0 Interpretation Negative VITAL SIGNS Temperature 97.1 degrees Fahrenheit 10/17/2023 Blood pressure diastolic 00 mm Hg 04/16/2024 Height 68.5 in 04/16/2024 Blood pressure systolic 00 mm Hg 04/16/2024 Weight 131 lbs 04/16/2024 BMI 19.63 kg/m2 04/16/2024 Encounters Encounter Location Date Provider Diagnosis [facility] [address] [place] [address] 10/17/2023 Alexis Hernandez Crohn's disease of small intestine with complication K50.019 [facility] [address] [place] [address] 04/16/2024 Alexis Hernandez Crohn's disease of both small and large intestine without complication K50.80 and Therapeutic drug monitoring Z51.81 [facility] [address] [place] [address] 03/06/2024 Alexis Hernandez [facility] [address] [place] [address] 09/23/2024 Alexis Hernandez ASSESSMENTS Encounter Date Diagnosis Assessment Notes Treatment Notes Treatment Clinical Notes 10/17/2023 Crohn's disease of small intestine with complication (ICD-10 - K50.019) Continue the daily 75mg Azathioprine and do the labs every 2 months Stay on Low residue diet 04/16/2024 Crohn's disease of both small and large intestine without complication (ICD-10 - K50.80) 04/16/2024 Therapeutic drug monitoring (ICD-10 - Z51.81) PLAN OF TREATMENT Pending Test Test Name Order Date LIVER PROFILE 03/29/2018 LIVER PROFILE 02/10/2012 LIVER PROFILE 03/31/2015 LIVER PROFILE 04/06/2021 LIVER PROFILE 05/21/2014 LIVER PROFILE 04/02/2019 LIVER PROFILE 12/23/2016 LIVER PROFILE 03/22/2016 LIVER PROFILE 06/03/2014 LIVER PROFILE 09/20/2023 LIVER PROFILE 03/24/2021 LIVER PROFILE 08/11/2022 IRON + IBC (FE) 01/22/2013 FERRITIN 01/22/2013 VITAMIN B12 AND FOLATE 01/22/2013 VITAMIN B12 AND FOLATE 06/03/2014 CBC w DIFF 08/11/2022 CBC w DIFF 03/29/2018 CBC w DIFF 02/10/2012 CBC w DIFF 03/31/2015 CBC w DIFF 04/06/2021 CBC w DIFF 05/21/2014 CBC w DIFF 04/02/2019 CBC w DIFF 12/23/2016 CBC w DIFF 03/22/2016 CBC w DIFF 09/20/2023 CBC w DIFF 03/24/2021 CBC w DIFF 06/03/2014 XR GI SMALL BOWEL SERIES 12/06/2012 PROMETHEUS THIOPURINE METABOLITES (TPMT) 12/23/2016 PROMETHEUS THIOPURINE METABOLITES (TPMT) 07/19/2016 PROMETHEUS TPMT ENZYME 07/19/2016 PROMETHEUS TPMT GENETICS 07/19/2016 Complete Blood Count Auto Diff 3 Liver Panel 07/22/2021 Prom Thiopurine Metabolites 04/16/2024 T Spot TB 06/18/2021 Future Test Test Name Order Date COLONOSCOPY 08/11/2022 Next Appt Details Provider Name:Alexis Hernandez , 10/17/2024 09:00:00 AM, [address], [address], [place], [address], Insurance Providers Payer Name Payer Address Payer Phone Subscriber Number Group Number Insured Name Patient Relationship to Insured Coverage Start Date Coverage End Date [facility] [address] [place], [place] [id number] VEE RESENDEZ Self - patient is the insured MEDICARE OF [place] [address] [place] [address] [id number] VEE RESENDEZ Self - patient is the insured MEDICATIONS ADMINISTERED Medication Instructions Date of Administration Dosage Notes B12 06/20/2014 1000 ug B12 06/27/2014 1000 ug B12 07/04/2014 1000 ug B12 08/14/2014 1000 ug B12 09/19/2014 1000 ug B12 10/17/2014 1000 ug B-12 12/22/2014 1000 ug B-12 02/03/2015 1000 ug B-12 03/05/2015 1000 ug B12 03/31/2015 1000 ug B-12 07/20/2015 1000 ug B-12 12/22/2015 1000 ug B-12 02/12/2016 1000 ug B-12 03/22/2016 1000 ug B-12 06/21/2016 1000 ug B-12 07/19/2016 1000 ug B-12 07/21/2017 1000 ug B-12 03/29/2018 1000 ug B-12 04/02/2019 1000 ug B-12 02/12/2021 1000 ug B-12 04/06/2021 1000 ug B-12 05/19/2021 1000 ug B12 06/15/2021 1000 ug B-12 10/14/2021 1000 ug MEDICAL (GENERAL) HISTORY Medical History History ICD Code Crohn's disease of the termi nal ileum since 1985-s/p surgery x 2, and intraabdominal abscess as described below--last colonoscopy in 11/2010 with no active disease Gallstones B12 deficiency--reveived 3 B 12 shots in 01/2021-02/2021, then started a monthly shot Denies VT,DM,CVA,Lung disease,renal dise ase Hospitalization in 10/2012 fo r intra-abdominal abscess in relation to the TI Crohn's disease-drained by CT, and Rx'd with antibiotics-no surgery needed-seen by Dr. Parmar Started on Humira on 01/22/13; has been on Azathioprine since 2009--stopped the Humira in early 02/2014 due to difficulty in maintaining the injection schedule--he did not have any side effects from it---he resumed the Humira in 07/2014; he stopped his Azathioprine in 2016; he stopped the Humira again in 06/2018 Neg. screening colonoscopy in 11/2010 COVID 12/2020-not hospitalized Hospitalized in 01/2021 for Erick cochran's with active Crohn's of the TI with an intraabdominal abscess--had CT drainage, IV steroids, seen by Dr. Mitchell--CT resolved and had drain removed as an outpt---insurance would not cover the Pentasa or Humira Restarted azathioprine 75 mg daily in 2020 Started Stelara in 07/2021 w ith an IV infusion, and 1st injection end of 09/2021. He stopped the Stelara in December of 2021 due to insurance issues Negative screeing colonoscop y in 03/2023---some mild ileitis noted proximal to the anastomosis Surgical History Surgery Date(Month/Year) 1985 Ileocolectomy for Crohn 's, and 2006 with recurrent abscess and repeat ileocolectomy by Dr. 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
[2024-10-02 10:15] LABS: MANUAL DIFF FLAG NO
[2024-10-02 10:30] LABS: Basophils Percent Auto 0.7 % (0-2); Eosinophils Absolute Auto 0.9 X10*3/uL (0.0-0.4); Eosinophils Percent Auto 14.3 % (0-4); Hematocrit 41.3 % (42.0-52.0); Hemoglobin 13.8 g/dl (14.0-18.0); Imm Gran Abs Auto 0.02 X10*3/uL (0.00-0.03); Imm Gran Pct Auto 0.3 % (0.0-0.4); Lymphocytes Percent Auto 16.4 % (20-40); Mean Corpuscular HGB Conc 33.4 g/dl (31.0-36.0); Mean Corpuscular Hemoglobin 35.3 pg (27.0-33.0); Mean Corpuscular Volume 105.6 fL (80.0-98.0); Monocytes Absolute Auto 0.6 X10*3/uL (0.1-1.2); Monocytes Percent Auto 9.6 % (2-11); Neutrophils Absolute Auto 3.5 x10*3/uL (2.0-8.3); Neutrophils Percent Auto 58.7 % (45-73); Platelet Count 293 X10*3/uL (160-400); Red Blood Count 3.91 X10*6/uL (4.60-5.80); Red Cell Distribution Width 13.2 % (11.0-16.0)
[2024-10-02 11:06] LABS: Alanine Aminotransferase 18 U/L (0-40); Albumin Level 4.3 g/dL (3.5-5.0); Alkaline Phosphatase 84 U/L (39-117); Aspartate Amino Transferase 27 U/L (5-37); Bilirubin Direct 0.2 mg/dL (0.0-0.5); Bilirubin Total 0.4 mg/dL (0.0-1.0)
== END 2024-10-02 09:15 | disposition home or self-care (01) ==
LOC: HO.HMGCLR 09:14
PROVIDERS: Visit Provider Internal Medicine
DX: K50.019 Crohn's disease of small intestine with unspecified complications (principal); Z51.81 Encounter for therapeutic drug level monitoring
CPT/HCPCS: 36415; 80076; 85025

== ENCOUNTER 2024-10-22 09:00 | Outpatient (REF) | payer MEDICARE, SELFPAY ==
--- OUTSIDE RECORDS SUMMARY | 2024-10-22 09:24 | XMS_ITS ---
Author Organization [facility] Address [address] [place] [address] Care Team Providers Care Chemical Applicator Name Role Phone Julio Cesar ARANA, Haroon Primary Care Provider Alexis Garcia Unavailable [phone] Bethel Mitchell MD Unavailable Unavailable ALLERGIES Allergen (clinical drug ingredient) Drug/Non Drug Allergy documented on EMR Reaction Allergy Type Onset Date Status Penicillin Unknown Drug Allergy Active REASON FOR VISIT Patient presents today for crohn's MEDICATIONS Medication SIG (Take, Route, Frequency, Duration) Notes Start Date End Date Status Pentasa 500 MG 2 capsules Orally Four times a day for 30 day(s) 02/02/2021 Unknown Humira-CD/UC/HS Starter 40 MG/0.8ML 2 Pens on Day #1, 2 Pens on day # 2 then 2 Pens on Day # 15 Subcutaneous QD for 15 days 02/24/2021 Unknown Humira Pen 40 MG/0.8ML 1 Pen Subcutaneou s Every other week for 28 days 02/24/2021 Unknown azaTHIOprine 50 MG 1 1/2 tablets Orally Once a day for 90 days 02/27/2023 Active metroNIDAZOLE 500 MG 1 tablet Orally jesus manuel ry 8 hrs Unknown Multivitamin Active Stelara 90 MG/ML as directed Subcutaneous Last dose in 12/2021 Unknown Calcium + D Active IMMUNIZATIONS Vaccine Route Administration Date Status Comme nts Influenza Unknown 10/17/2024 Refused SOCIAL HISTORY Tobacco Use: Social History [...] Points 0 Interpretation Negative VITAL SIGNS BMI 20.53 kg/m2 10/17/2024 Blood pressure systolic 000 mm Hg 10/17/19 25 Blood pressure diastolic 00 mm Hg 025 Height 68.5 in 10/17/2024 Temperature 98.9 degrees Fahrenheit 10/17/19 25 Weight 137 lbs 10/17/2024 Encounters Encounter Location Date Provider Diagnosis [facility] [address] [place] [address] 10/17/2024 Alexis Hernandez Crohn's disease of both small and large intestine without complication K50.80 and Therapeutic drug monitoring Z51.81 ASSESSMENTS Encounter Date Diagnosis Assessment Notes Treatment Notes Treatment Clinical Notes 10/17/2024 Crohn's disease of both small and large intestine without complication (ICD-10 - K50.80) 10/17/2024 Therapeutic drug monitoring (ICD-10 - Z51.81) PLAN OF TREATMENT Medication Medication Name Sig Start Date Stop Date Notes azaTHIOprine 50 MG 1 1/2 tablets Orally Once a day for 90 days 02/27/2023 Pending Test Test Name Order Date LIVER PROFILE 10/17/2024 CBC w DIFF 10/17/2024 Prom Thiopurine Metabolites 10/17/2024 Next Appt Details Follow Up: 1 Year, Reason: Provider Name:Alexis Hernandez , 10/21/2025 09:10:00 AM, [address], [address], [place], [address],
--- OUTSIDE RECORDS SUMMARY | 2024-10-22 09:25 | XMS_ITS ---
Author Organization [facility] Address [address] [place] [address] Care Team Providers Care Field Reimbursement Manager Name Role Phone Julio Cesar ARANA Haroon Primary Care Provider Alexis Garcia Unavailable [phone] Bethel Mitchell MD Unavailable Unavailable ALLERGIES Allergen [...] Unknown Encounters Encounter Location Date Provider Diagnosis [facility] [address] [place] [address] 09/23/2024 Alexis Hernandez PLAN OF TREATMENT Next Appt Details Provider Name:Alexis Hernandez , 10/21/2025 09:10:00 AM, [address], [address], [place], [address],
--- OUTSIDE RECORDS SUMMARY | 2024-10-22 09:25 | XMS_ITS ---
Author Organization [facility] Address [address] [place] [address] Care Team Providers Care Business Banking Relationship Manager Name Role Phone Julio Cesar ARANA, Haroon Primary Care Provider Alexis Garcia Unavailable [phone] Bethel Mitchell MD Unavailable Unavailable ALLERGIES Allergen [...] 04/16/2024 Encounters Encounter Location Date Provider Diagnosis [facility] [address] [place] [address] 04/16/2024 Alexis Hernandez Crohn's disease of both [...] 6 Months, Reason: Provider Name:Alexis Hernandez , 10/21/2025 09:10:00 AM, [address], [address], [place], [address], Progress Notes * Examination Category Sub-Category Detail [...]
--- OUTSIDE RECORDS SUMMARY | 2024-10-22 09:25 | XMS_ITS | Patient Health Record ---
Author Organization [facility] Address [address] [place] [address] Care Team Providers Care Chart Reader Name Role Phone Julio Cesar ARANA, [place] Primary Care Provider Alexis Garcia Unavailable [phone] Bethel Mitchell MD Unavailable Unavailable ALLERGIES Allergen (clinical drug ingredient) Drug/Non Drug Allergy documented on EMR Reaction Allergy Type Onset Date Status Penicillin Unknown Drug Allergy Active RESULTS Component Value Reference Range Notes Complete Blood Count Auto Di ff Reviewed date:01/31/2024 09:07:54 PM Interpretation: Performing Lab:[facility], [address] [place] [phone] Notes/Report: White Blood Count 6.3 4.8-10.8 X10*3/uL [...] Panel Reviewed date:01/31/2024 09:08:12 PM Interpretation: Performing Lab:[address] [phone] Notes/Report: Bilirubin Total 0.4 0.0-1.0 mg/dL Bilirubin Direct 0.2 0.0-0.5 mg/dL Aspartate Amino Transferase 23 5-37 U/L Alanine Aminotransferase 13 0-40 U/L Total Protein 6.9 6.5-8.0 g/dL Albumin Level 4.3 3.5-5.0 g/dL Alkaline Phosphatase 73 39-117 U/L Complete Blood Count Auto Di ff Reviewed date:03/06/2024 05:26:20 PM Interpretation: Performing Lab:[facility], [address] [place] [phone] Notes/Report: White Blood Count 5.5 4.8-10.8 X10*3/uL [...] Panel Reviewed date:03/06/2024 05:26:40 PM Interpretation: Performing Lab:[address] [phone] Notes/Report: Bilirubin Total 0.4 0.0-1.0 mg/dL Bilirubin Direct 0.2 0.0-0.5 mg/dL Aspartate Amino Transferase 24 5-37 U/L Alanine Aminotransferase 13 0-40 U/L Total Protein 6.3 6.5-8.0 g/dL Albumin Level 3.9 3.5-5.0 g/dL Alkaline Phosphatase 65 39-117 U/L Complete Blood Count Auto Di ff Reviewed date:04/15/2024 10:37:58 PM Interpretation: Performing Lab:[facility], [address] [place] [phone] Notes/Report: White Blood Count 4.9 4.8-10.8 X10*3/uL [...] Panel Reviewed date:04/15/2024 10:50:42 PM Interpretation: Performing Lab:[address] [phone] Notes/Report: Bilirubin Total 0.4 0.0-1.0 mg/dL Bilirubin Direct 0.2 0.0-0.5 mg/dL Aspartate Amino Transferase 18 5-37 U/L Alanine Aminotransferase 7 0-40 U/L Total Protein 6.5 6.5-8.0 g/dL Albumin Level 3.8 3.5-5.0 g/dL Alkaline Phosphatase 71 39-117 U/L Complete Blood Count Auto Di ff Reviewed date:07/04/2024 04:35:40 PM Interpretation: Performing Lab:[address] [phone] Notes/Report: White Blood Count 6.7 4.8-10.8 X10*3/uL [...] Panel Reviewed date:07/04/2024 04:34:56 PM Interpretation: Performing Lab:[facility], [address] [place] [phone] Notes/Report: Bilirubin Total 0.4 0.0-1.0 mg/dL Bilirubin Direct 0.2 0.0-0.5 mg/dL Aspartate Amino Transferase 20 5-37 U/L Alanine Aminotransferase 11 0-40 U/L Total Protein 6.4 6.5-8.0 g/dL Albumin Level 4.0 3.5-5.0 g/dL Alkaline Phosphatase 69 39-117 U/L Complete Blood Count Auto Di ff Reviewed date:08/28/2024 05:58:52 PM Interpretation: Performing Lab:[address] [phone] Notes/Report: White Blood Count 7.0 4.8-10.8 X10*3/uL [...] Panel Reviewed date:08/29/2024 07:51:31 PM Interpretation: Performing Lab:[facility], [address] [place] [phone] Notes/Report: Bilirubin Total 0.4 0.0-1.0 mg/dL Bilirubin Direct 0.2 0.0-0.5 mg/dL Aspartate Amino Transferase 34 5-37 U/L Alanine Aminotransferase 21 0-40 U/L Total Protein 6.7 6.5-8.0 g/dL Albumin Level 4.2 3.5-5.0 g/dL Alkaline Phosphatase 82 39-117 U/L Complete Blood Count Auto Di ff Reviewed date:10/07/2024 08:13:29 PM Interpretation: Performing Lab:[facility], [address] [place] [phone] Notes/Report: White Blood Count 6.0 4.8-10.8 X10*3/uL Red Blood Count 3.91 4.60-5.80 X10*6/uL Hemoglobin 13.8 14.0-18.0 g/dl Hematocrit 41.3 42.0-52.0 % Mean Corpuscular Volume 105.6 80.0-98.0 fL Mean Corpuscular Hemoglobin 35.3 27.0-33.0 pg Mean Corpuscular HGB Conc 33.4 31.0-36.0 g/dl Red Cell Distribution Width 13.2 11.0-16.0 % Platelet Count 293 160-400 X10*3/uL Mean Platelet Volume 10.0 9.4-12.4 fL Neutrophils Percent Auto 58.7 45-73 % Imm Gran Pct Auto 0.3 0.0-0.4 % Lymphocytes Percent Auto 16.4 20-40 % Monocytes Percent Auto 9.6 2-11 % Eosinophils Percent Auto 14.3 0-4 % Basophils Percent Auto 0.7 0-2 % NRBC Pct Auto 0.0 0.0-0.2 /100WBC Neutrophils Absolute Auto 3.5 2.0-8.3 x10*3/u L Imm Gran Abs Auto 0.02 0.00-0.03 X10*3/uL Lymphocytes Absolute Auto 1.0 1.2-4.9 X10*3/u L Monocytes Absolute Auto 0.6 0.1-1.2 X10*3/uL Eosinophils Absolute Auto 0.9 0.0-0.4 X10*3/u L Basophils Absolute Auto 0.0 0.0-0.2 X10*3/uL NRBC Abs Auto 0.000 0.0-0.012 X10*3/uL Liver Panel Reviewed date:10/02/2024 01:50:24 PM Interpretation: Performing Lab:[facility], [address] [place] [phone] Notes/Report: Bilirubin Total 0.4 0.0-1.0 mg/dL Bilirubin Direct 0.2 0.0-0.5 mg/dL Aspartate Amino Transferase 27 5-37 U/L Alanine Aminotransferase 18 0-40 U/L Total Protein 7.0 6.5-8.0 g/dL Albumin Level 4.3 3.5-5.0 g/dL Alkaline Phosphatase 84 39-117 U/L REASON FOR REFERRAL No Information MEDICATIONS Medication SIG (Take, Route, Frequency, Duration) Notes Start Date End Date Status Multivitamin Active Stelara 90 MG/ML as directed [...] Orally jesus manuel ry 8 hrs Unknown Calcium + D Active IMMUNIZATIONS Vaccine Route Administration Date Status Comme nts Influenza Unknown 04/02/2019 Refused Influenza Unknown 10/17/2024 Refused SOCIAL HISTORY Tobacco [...] Points 0 Interpretation Negative VITAL SIGNS Temperature 98.9 degrees Fahrenheit 10/17/2024 Blood pressure diastolic 00 mm Hg 10/17/2024 Height 68.5 in 10/17/2024 Blood pressure systolic 000 mm Hg 10/17/2024 Weight 137 lbs 10/17/2024 BMI 20.53 kg/m2 10/17/2024 Encounters Encounter Location Date Provider Diagnosis [facility] [address] [place] [address] 04/16/2024 Alexis Hernandez Crohn's disease of both small and large intestine without complication K50.80 and Therapeutic drug monitoring Z51.81 [facility] [address] [place] [address] 10/17/2024 Alexis Hernandez Crohn's disease of both small and large intestine without complication K50.80 and Therapeutic drug monitoring Z51.81 [facility] [address] [place] [address] 03/06/2024 Alexis Hernandez [facility] [address] [place] [address] 09/23/2024 Alexis Hernandez ASSESSMENTS Encounter Date Diagnosis Assessment Notes Treatment Notes Treatment Clinical Notes 04/16/2024 Crohn's disease of both small and large intestine without complication (ICD-10 - K50.80) 04/16/2024 Therapeutic drug monitoring (ICD-10 - Z51.81) 10/17/2024 Crohn's disease of both small and large intestine without complication (ICD-10 - K50.80) 10/17/2024 Therapeutic drug monitoring (ICD-10 - Z51.81) PLAN OF TREATMENT Pending Test Test Name Order Date LIVER PROFILE 08/11/2022 LIVER PROFILE 03/29/2018 LIVER PROFILE 02/10/2012 LIVER PROFILE 03/31/2015 LIVER PROFILE 04/06/2021 LIVER PROFILE 05/21/2014 LIVER PROFILE 10/17/2024 LIVER PROFILE 04/02/2019 LIVER PROFILE 12/23/2016 LIVER PROFILE 03/22/2016 LIVER PROFILE 06/03/2014 LIVER PROFILE 09/20/2023 LIVER PROFILE 03/24/2021 IRON + IBC (FE) 01/22/2013 FERRITIN 01/22/2013 VITAMIN B12 AND FOLATE 01/22/2013 VITAMIN B12 AND FOLATE 06/03/2014 CBC w DIFF 09/20/2023 CBC w DIFF 06/03/2014 CBC w DIFF 03/24/2021 CBC w DIFF 08/11/2022 CBC w DIFF 03/29/2018 CBC w DIFF 02/10/2012 CBC w DIFF 03/31/2015 CBC w DIFF 04/06/2021 CBC w DIFF 05/21/2014 CBC w DIFF 10/17/2024 CBC w DIFF 04/02/2019 CBC w DIFF 12/23/2016 CBC w DIFF 03/22/2016 XR GI SMALL BOWEL SERIES 12/06/2012 PROMETHEUS THIOPURINE METABOLITES (TPMT) 12/23/2016 PROMETHEUS THIOPURINE METABOLITES (TPMT) 07/19/2016 PROMETHEUS TPMT ENZYME 07/19/2016 PROMETHEUS TPMT GENETICS 07/19/2016 Complete Blood Count Auto Diff 3 Liver Panel 07/22/2021 Prom Thiopurine Metabolites 04/16/2024 Prom Thiopurine Metabolites 10/17/2024 T Spot TB 06/18/2021 Future Test Test Name Order Date COLONOSCOPY 08/11/2022 Next Appt Details Provider Name:Alexis Galindo Hernandez , 10/21/2025 09:10:00 AM, [address] [place] [address], [facility] [address], [place], [address], Insurance Providers Payer Name Payer Address Payer Phone Subscriber Number Group Number Insured Name Patient Relationship to Insured Coverage Start Date Coverage End Date [facility] [address] [place], [place] [id number] VEE RESENDEZ Self - patient is the [...] 01/2021-02/2021, then started a monthly shot Denies DE,DM,CVA,Lung disease,renal dise ase Hospitalization in 10/2012 fo [...]
== END 2024-10-22 09:01 | disposition home or self-care (01) ==
LOC: HO.HMGCLDS 09:00
PROVIDERS: Visit Provider Internal Medicine
DX: K50.80 Crohn's disease of both small and large intestine without complications (principal); Z51.81 Encounter for therapeutic drug level monitoring
CPT/HCPCS: 36415; 80299

== ENCOUNTER 2024-11-21 09:40 | Outpatient (REF) | payer MEDICARE, SELFPAY ==
[2024-11-21 12:58] LABS: MANUAL DIFF FLAG NO
[2024-11-21 13:01] LABS: Basophils Percent Auto 0.7 % (0-2); Eosinophils Absolute Auto 0.7 X10*3/uL (0.0-0.4); Eosinophils Percent Auto 11.5 % (0-4); Hematocrit 39.8 % (42.0-52.0); Imm Gran Abs Auto 0.02 X10*3/uL (0.00-0.03); Imm Gran Pct Auto 0.3 % (0.0-0.4); Lymphocytes Absolute Auto 0.9 X10*3/uL (1.2-4.9); Lymphocytes Percent Auto 15.9 % (20-40); Mean Corpuscular HGB Conc 32.7 g/dl (31.0-36.0); Mean Corpuscular Hemoglobin 34.8 pg (27.0-33.0); Mean Corpuscular Volume 106.4 fL (80.0-98.0); Mean Platelet Volume 9.7 fL (9.4-12.4); Monocytes Absolute Auto 0.5 X10*3/uL (0.1-1.2); Monocytes Percent Auto 7.9 % (2-11); Neutrophils Absolute Auto 3.7 x10*3/uL (2.0-8.3); Neutrophils Percent Auto 63.7 % (45-73); Platelet Count 286 X10*3/uL (160-400); Red Blood Count 3.74 X10*6/uL (4.60-5.80); Red Cell Distribution Width 14.5 % (11.0-16.0); White Blood Count 5.8 X10*3/uL (4.8-10.8)
[2024-11-21 13:16] LABS: Alanine Aminotransferase 13 U/L (0-40); Alkaline Phosphatase 77 U/L (39-117); Aspartate Amino Transferase 22 U/L (5-37); Bilirubin Direct 0.2 mg/dL (0.0-0.5); Bilirubin Total 0.4 mg/dL (0.0-1.0); Total Protein 6.8 g/dL (6.5-8.0)
== END 2024-11-21 09:41 | disposition home or self-care (01) ==
LOC: HO.HMGCLR 09:40
PROVIDERS: Visit Provider Internal Medicine
DX: K50.80 Crohn's disease of both small and large intestine without complications (principal)
CPT/HCPCS: 36415; 80076; 85025

== ENCOUNTER 2024-11-23 08:40 | Outpatient (REF) | payer MEDICARE, SELFPAY ==
--- OUTSIDE RECORDS SUMMARY | 2024-11-23 08:45 | XMS_ITS ---
Author Organization [facility] Address [address] [place] [address] Care Team Providers Care Shoe Treer Name Role Phone Erik Harrell MDneth Primary Care Provider Alexis Garcia Unavailable [phone] Bethel Mitchell MD Unavailable Unavailable ALLERGIES Allergen (clinical drug ingredient) Drug/Non Drug Allergy documented on EMR Reaction Allergy Type Onset Date Status Penicillin Unknown Drug Allergy Active RESULTS Component Value Reference Range Notes Prom Thiopurine Metabolites (Not yet reviewed by provider) Interpretation: Performing Lab:[facility], [address] [place] [address] Notes/Report: Prom Thiopurine Metabolites SEE NOTE SEE SCANNED RESULTS IN EMR REASON FOR VISIT Patient presents today for [...] 10/17/2024 Encounters Encounter Location Date Provider Diagnosis [facility] [address] [place] [address] 10/17/2024 Alexis Hernandez Crohn's disease of both [...] Follow Up: 1 Year, Reason: Provider Name:Alexis Galindo Hernandez , 10/21/2025 09:10:00 AM, [address], [address], [place], [address], Progress Notes * Examination Category Sub-Category Detail [...]
--- OUTSIDE RECORDS SUMMARY | 2024-11-23 08:45 | XMS_ITS ---
Author Organization [facility] Address [address] [place] [address] Care Team Providers Care Supervisor Production Name Role Phone Julio Cesar ARANA, [place] Primary Care Provider Unava Alexis Arnett Unavailable [phone] Stephen ARANA, [place] Unavailable Unavailable REASON FOR VISIT FYI Encounters Encounter Location Date Provider Diagnosis [facility] [address] [place] [address] 10/24/2024 Alexis Hernandez PLAN OF TREATMENT Next Appt Details Provider Name:Alexis Hernandez , 10/21/2025 09:10:00 AM, [address] [place] [address], [address], [place], [address],
--- OUTSIDE RECORDS SUMMARY | 2024-11-23 08:46 | XMS_ITS ---
Author Organization [facility] Address [address] [place] [address] Care Team Providers Care Corporate Securities Research Analyst Name Role Phone Julio Cesar ARANA, [place] Primary Care Provider UnaAlexis Solano Unavailable [phone] Stephen ARANA, [place] Unavailable Unavailable REASON FOR VISIT Needs labs JORGE PROBLEMS Problem Type ICD Code Onset Dates Problem Status W/U Status Risk SNOMED Code Notes Problem Macrocytosis without anemia (D75.89) Active confirmed Macrocytosis - no anemia (323670780) Problem Vitamin B12 deficiency anemia, unspecified (D51.9) Active confirmed Vitamin B>12< deficiency anaemia (51124778) Encounters Encounter Location Date Provider Diagnosis [facility] [address] [facility] [address] [place] [address] 11/21/2024 Alexis Hernandez Macrocytosis without anemia D75.89 and Vitamin B12 deficiency anemia, unspecified D51.9 ASSESSMENTS Encounter Date Diagnosis Assessment Notes Treatment Notes Treatment Clinical Notes 11/21/2024 Macrocytosis without anemia (ICD-10 - D75.89) 11/21/2024 Vitamin B12 deficiency anemia, unspecified (ICD-10 - D51.9) PLAN OF TREATMENT Pending Test Test Name Order Date Vitamin B12 and Folate 11/21/2024 TSH reflex Free T4 11/21/2024 Next Appt Details Provider Name:Alexis Galindo David , 10/21/2025 09:10:00 AM, [address] [facility], [address], [place], [address],
[2024-11-23 12:02] LABS: TSH reflex Free T4 2.03 uIU/mL (0.32-4.0)
[2024-11-23 12:18] LABS: Folate 11.1 ng/mL (> or = 4.0); Vitamin B12 < 148 pg/mL (200-900)
== END 2024-11-23 08:41 | disposition home or self-care (01) ==
LOC: HO.HMGCLDS 08:40
PROVIDERS: Visit Provider Internal Medicine
DX: D75.89 Other specified diseases of blood and blood-forming organs (principal); D51.9 Vitamin B12 deficiency anemia, unspecified
CPT/HCPCS: 36415; 82607; 82746; 84443

== ENCOUNTER 2024-12-30 10:35 | Outpatient (REF) | payer MEDICARE, SELFPAY ==
--- OUTSIDE RECORDS SUMMARY | 2024-12-30 12:00 | XMS_ITS ---
Author Organization [facility] Address [address] [place] [address] Care Team Providers Care Inspector Repairer [place] Name Role Phone Julio Cesar ARANA, [place] Primary Care Provider Unava Alexis Arnett Unavailable [phone] Bethel Mitchell MD Unavailable Unavailable Encounters Encounter Location Date Provider Diagnosis [facility] [address] [place] [address] 12/22/2024 Alexis Hernandez Plan Of Treatment Next Appt Details Provider Name:Alexis Mateo Hernandez , 10/21/2025 09:10:00 AM, [address], [address], [place], [address], Progress Notes * VEE RESENDEZ JrDOB:[birth year] (69 yo M)Acc No.[id number]:12/22/2024 Patient:?VEE RESENDEZ r :1955???Age:69 Y???Sex:Male Address:[address] [place], [place] [address] [address] * true * Date:? Generated for Rossi kennedy/Dora/eTransmitting on:?12/30/2024 12:00 PM EDT
--- OUTSIDE RECORDS SUMMARY | 2024-12-30 12:00 | XMS_ITS ---
Author Organization [facility] Address [address] [place] [address] Care Team Providers Care Educational Institution President Name Role Phone Julio Cesar ARANA, [place] Primary Care Provider Alexis Garcia Unavailable [phone] Bethel Mitchell MD Unavailable Unavailable REASON FOR VISIT B12 deficiency Medications Medication SIG (Take, Route, Frequency, Duration) Notes Start Date End Date Status Humira Pen 40 MG/0.8ML 1 Pen Subcutaneou s Every other week for 28 days 02/24/2021 Unknown Humira-CD/UC/HS Starter 40 MG/0.8ML 2 Pens on Day #1, 2 Pens on day # 2 then 2 Pens on Day # 15 Subcutaneous QD for 15 days 02/24/2021 Unknown Pentasa 500 MG 2 capsules Orally Four times a day for 30 day(s) 02/02/2021 Unknown Stelara 90 MG/ML as directed Subcutaneous Last dose in 12/2021 Unknown metroNIDAZOLE 500 MG 1 tablet Orally jesus manuel ry 8 hrs Unknown Multivitamin Active Calcium + D Active azaTHIOprine 50 MG 1 1/2 tablets Orally Once a day for 90 days 02/27/2023 Active Encounters Encounter Location Date Provider Diagnosis [facility] [address] [place] [address] 12/18/2024 Alexis Hernandez Vitamin B 12 deficiency E53.8 Assessments Encounter Date Diagnosis (ICD Code) Assessment Notes Treatment Notes Treatment Clinical Notes Section Notes 12/18/2024 Vitamin B 12 deficiency (ICD-10 - E53.8) Plan Of Treatment Next Appt Details Provider Name:Alexis Hernandez , 10/21/2025 09:10:00 AM, [address], [address], [place], [address], Progress Notes * VEE RESENDEZ JrDOB:[birth year] (69 yo M)Acc No.[id number]:12/18/2024 SHOT Patient:?MAL VEE C J r Provider:?Alexis Hernandez MD :1955???Age:69 Y???Sex:Male Willard e:12/18/2024 Address:[address] [place] [address], [place] Pcp:Haroon Harrell MD Subjective: * Chief Complaints: * ???1. B12 deficiency. * Medical History:? * Medications:?Taking azaTHIOp rine 50 MG Tablet 1 1/2 tablets Orally Once a day , Taking Calcium + D , Taking Multivitamin , Unknown Stelara 90 MG/ML Solution Prefilled Syringe as directed Subcutaneous , Notes to Pharmacist: Last dose in 12/2021, Unknown Pentasa 500 MG Capsule Extended Release 2 capsules Orally Four times a day , Unknown Humira-CD/UC/HS Starter 40 MG/0.8ML Pen-injector Kit 2 Pens on Day #1, 2 Pens on day # 2 then 2 Pens on Day # 15 Subcutaneous QD , Unknown Humira Pen 40 MG/0.8ML Pen-injector Kit 1 Pen Subcutaneous Every other week , Unknown metroNIDAZOLE 500 MG Tablet 1 tablet Orally every 8 hrs Objective: * Vitals:? Assessment: * Assessment: 1.?Vitamin B 12 deficiency - E53.8 (Primary)??? Plan: * Treatment: * Procedure Codes:?J3420 INJ V IT B-12 CYNOCOBLMN TO 1000 [place]CG, [address] THER/PROPH/DIAG INJ, SC/IM * * Sign off status: Completed true * Provider:?Alexis Hernandez MD Date:? 025 Generated for Printi ng/Faxing/eTransmitting on:?12/30/2024 12:00 PM EDT
--- OUTSIDE RECORDS SUMMARY | 2024-12-30 12:01 | XMS_ITS ---
Author Organization [facility] Address [address] [place] [address] Care Team Providers Care Oil Field Pipeline Supervisor Name Role Phone Julio Cesar ARANA, [place] Primary Care Provider Alexis Garcia Unavailable [phone] Stephen ARANA, [place] Unavailable Unavailable REASON FOR VISIT B12 deficiency Medications Medication SIG (Take, Route, Frequency, Duration) Notes Start Date End Date Status metroNIDAZOLE 500 MG 1 tablet Orally jesus manuel ry 8 hrs Unknown Humira Pen 40 MG/0.8ML 1 Pen [...] directed Subcutaneous Last dose in 12/2021 Unknown Multivitamin Active Calcium + D Active azaTHIOprine 50 MG 1 1/2 tablets Orally Once a day for 90 days 02/27/2023 Active Encounters Encounter Location Date Provider Diagnosis [facility] [address] [place] [address] 12/11/2024 Alexis Hernandez Vitamin B 12 deficiency E53.8 Assessments Encounter Date Diagnosis (ICD Code) Assessment Notes Treatment Notes Treatment Clinical Notes Section Notes 12/11/2024 Vitamin B 12 deficiency (ICD-10 - E53.8) Plan Of Treatment Next Appt Details Provider Name:Alexis Hernandez , 10/21/2025 09:10:00 AM, [address], [address], [place], [address], Medications Administered Medication Instructions Date of Administration Dosage Notes B-12 12/11/2024 1000 mL Progress Notes * VEE RESENDEZ JrDOB:[birth year] (69 yo M)Acc No.[id number]:12/11/2024 SHOT Patient:?VEE RESENDEZ Provider:?Alexis Hernandez MD :1955???Age:69 Y???Sex:Male Willard e:12/11/2024 Address:[address] [place] [address], [id number] Pcp:Haroon Harrell MD Subjective: * Chief Complaints: * ???1. B12 deficiency. * Medical History:? * Medications:?Taking azaTHIOp rine 50 MG Tablet 1 1/2 tablets Orally Once a day, Taking Calcium + D , Taking Multivitamin , Unknown Stelara 90 MG/ML Solution Prefilled Syringe as directed Subcutaneous , Notes: Last dose in 12/2021, Unknown Pentasa 500 MG Capsule Extended Release 2 capsules Orally Four times a day, Unknown Humira- CD/UC/HS Starter 40 MG/0.8ML Pen-injector Kit 2 Pens on Day #1, 2 Pens on day # 2 then 2 Pens on Day # 15 Subcutaneous QD, Unknown Humira Pen 40 MG/0.8ML Pen-injector Kit 1 Pen Subcutaneous Every other week, Unknown metroNIDAZOLE 500 MG Tablet 1 tablet Orally every 8 hrs Objective: Assessment: * Assessment: 1.?Vitamin B 12 deficiency - E53.8? Plan: * Treatment: * Therapeutic Injections:? B-12 : 1000 mL (Dose No:1) (Route: Intramuscular) given by Kenyatta Love on right arm subcutaneous * Procedure Codes:?J3420 INJ V IT B-12 CYNOCOBLMN TO 1000 [place], [address] THER/PROPH/DIAG INJ, SC/IM * * Sign off status: Completed true * Provider:?Alexis Hernandez MD Date:? 025 Generated for Pee benavides/Dora/Emily on:?12/30/2024 12:00 PM EDT
[2024-12-30 13:13] LABS: MANUAL DIFF FLAG NO
[2024-12-30 13:18] LABS: Basophils Percent Auto 0.5 % (0-2); Eosinophils Absolute Auto 0.6 X10*3/uL (0.0-0.4); Eosinophils Percent Auto 9.1 % (0-4); Hematocrit 40.7 % (42.0-52.0); Hemoglobin 13.3 g/dl (14.0-18.0); Imm Gran Abs Auto 0.03 X10*3/uL (0.00-0.03); Imm Gran Pct Auto 0.5 % (0.0-0.4); Lymphocytes Percent Auto 17.1 % (20-40); Mean Corpuscular HGB Conc 32.7 g/dl (31.0-36.0); Mean Corpuscular Hemoglobin 35.1 pg (27.0-33.0); Mean Corpuscular Volume 107.4 fL (80.0-98.0); Mean Platelet Volume 10.3 fL (9.4-12.4); Monocytes Absolute Auto 0.5 X10*3/uL (0.1-1.2); Monocytes Percent Auto 7.8 % (2-11); Neutrophils Absolute Auto 3.9 x10*3/uL (2.0-8.3); Platelet Count 270 X10*3/uL (160-400); Red Blood Count 3.79 X10*6/uL (4.60-5.80); Red Cell Distribution Width 14.3 % (11.0-16.0)
[2024-12-30 13:50] LABS: Alanine Aminotransferase 14 U/L (0-40); Alkaline Phosphatase 86 U/L (39-117); Aspartate Amino Transferase 21 U/L (5-37); Bilirubin Direct 0.2 mg/dL (0.0-0.5); Bilirubin Total 0.4 mg/dL (0.0-1.0); Total Protein 6.9 g/dL (6.5-8.0)
== END 2024-12-30 10:36 | disposition home or self-care (01) ==
LOC: HO.HMGCLR 10:35
PROVIDERS: Visit Provider Internal Medicine
DX: K50.80 Crohn's disease of both small and large intestine without complications (principal)
CPT/HCPCS: 36415; 80076; 85025

== ENCOUNTER 2025-03-04 09:12 | Outpatient (REF) | payer MEDICARE, SELFPAY ==
--- OUTSIDE RECORDS SUMMARY | 2025-03-04 09:55 | XMS_ITS | Patient Health Record ---
Author Organization [facility] Address [address] [place] [address] Care Team Providers Care Sinter Press Operator Name Role Phone Julio Cesar ARANA, [place] Primary Care Provider Alexis Garcia Unavailable [phone] Bethel Mitchell MD Unavailable Unavailable Allergies Allergen (clinical drug ingredient) Drug/Non Drug Allergy documented on EMR Reaction Allergy Type Onset Date Status Penicillin Unknown Drug Allergy Active Results Component Value Reference Range Notes Prom Thiopurine Metabolites (Not yet reviewed by provider) Interpretation: Performing Lab:[address] [phone] Notes/Report: Prom Thiopurine Metabolites SEE NOTE SEE SCANNED RESULTS IN EMR Vitamin B12 and Folate Reviewed date:11/27/2024 02:20:21 PM Interpretation: Performing Lab:[facility], [address] [place] [phone] Notes/Report: Vitamin B12 < 148 200-900 pg/mL NORMAL 200-900 PG/ML INDETERMINATE 160-199 PG/ML DEFICIENT < 160 PG/ML Folate 11.1 > or = 4.0 ng/mL Reference Values: > or = 4.0 ng/mL < 4.0 ng/mL suggests folate deficiency Methotrexate, aminopterin and folinic acid (leucovorin) are chemotherapeutic agents whose molecular structures are similar to folate; therefore, the Bench Precision [employer]er folate assay cannot be used for patients using these drugs. TSH reflex Free T4 Reviewed date:11/24/2024 09:57:46 AM Interpretation: Performing Lab:[facility], [address] [place] [phone] Notes/Report: TSH reflex Free T4 2.03 0.32-4.0 uIU/mL Complete Blood Count Auto Di ff Reviewed date:03/06/2024 05:26:20 PM Interpretation: Performing Lab:[facility], [address] [place] [phone] Notes/Report: White Blood Count 5.5 4.8-10.8 X10*3/uL [...] Panel Reviewed date:03/06/2024 05:26:40 PM Interpretation: Performing Lab:[facility], [address] [place] [phone] Notes/Report: Bilirubin Total 0.4 0.0-1.0 mg/dL Bilirubin Direct 0.2 0.0-0.5 mg/dL Aspartate Amino Transferase 24 5-37 U/L Alanine Aminotransferase 13 0-40 U/L Total Protein 6.3 6.5-8.0 g/dL Albumin Level 3.9 3.5-5.0 g/dL Alkaline Phosphatase 65 39-117 U/L Complete Blood Count Auto Di ff Reviewed date:04/15/2024 10:37:58 PM Interpretation: Performing Lab:[facility], [address] [place] [phone] Notes/Report: White Blood Count 4.9 4.8-10.8 X10*3/uL [...] Panel Reviewed date:04/15/2024 10:50:42 PM Interpretation: Performing Lab:[facility], [address] [place] [phone] Notes/Report: Bilirubin Total 0.4 0.0-1.0 mg/dL Bilirubin Direct 0.2 0.0-0.5 mg/dL Aspartate Amino Transferase 18 5-37 U/L Alanine Aminotransferase 7 0-40 U/L Total Protein 6.5 6.5-8.0 g/dL Albumin Level 3.8 3.5-5.0 g/dL Alkaline Phosphatase 71 39-117 U/L Complete Blood Count Auto Di ff Reviewed date:07/04/2024 04:35:40 PM Interpretation: Performing Lab:[facility], [address] [place] [phone] Notes/Report: White Blood Count 6.7 4.8-10.8 X10*3/uL [...] Panel Reviewed date:07/04/2024 04:34:56 PM Interpretation: Performing Lab:[facility], [address] [place] [phone] Notes/Report: Bilirubin Total 0.4 0.0-1.0 mg/dL Bilirubin Direct 0.2 0.0-0.5 mg/dL Aspartate Amino Transferase 20 5-37 U/L Alanine Aminotransferase 11 0-40 U/L Total Protein 6.4 6.5-8.0 g/dL Albumin Level 4.0 3.5-5.0 g/dL Alkaline Phosphatase 69 39-117 U/L Complete Blood Count Auto Di ff Reviewed date:08/28/2024 05:58:52 PM Interpretation: Performing Lab:[facility], [address] [place] [phone] Notes/Report: White Blood Count 7.0 4.8-10.8 X10*3/uL [...] Panel Reviewed date:08/29/2024 07:51:31 PM Interpretation: Performing Lab:[facility], [address] [place] [phone] Notes/Report: Bilirubin Total 0.4 0.0-1.0 mg/dL Bilirubin Direct 0.2 0.0-0.5 mg/dL Aspartate Amino Transferase 34 5-37 U/L Alanine Aminotransferase 21 0-40 U/L Total Protein 6.7 6.5-8.0 g/dL Albumin Level 4.2 3.5-5.0 g/dL Alkaline Phosphatase 82 39-117 U/L Complete Blood Count Auto Di ff Reviewed date:10/07/2024 08:13:29 PM Interpretation: Performing Lab:[facility], [address] [place] [phone] Notes/Report: White Blood Count 6.0 4.8-10.8 X10*3/uL [...] Panel Reviewed date:10/02/2024 01:50:24 PM Interpretation: Performing Lab:[facility], [address] [place] [phone] Notes/Report: Bilirubin Total 0.4 0.0-1.0 mg/dL Bilirubin Direct 0.2 0.0-0.5 mg/dL Aspartate Amino Transferase 27 5-37 U/L Alanine Aminotransferase 18 0-40 U/L Total Protein 7.0 6.5-8.0 g/dL Albumin Level 4.3 3.5-5.0 g/dL Alkaline Phosphatase 84 39-117 U/L Complete Blood Count Auto Di ff Reviewed date:11/21/2024 06:23:08 PM Interpretation: Performing Lab:[facility], [address] [place] [phone] Notes/Report: White Blood Count 5.8 4.8-10.8 X10*3/uL Red Blood Count 3.74 4.60-5.80 X10*6/uL Hemoglobin 13.0 14.0-18.0 g/dl Hematocrit 39.8 42.0-52.0 % Mean Corpuscular Volume 106.4 80.0-98.0 fL Mean Corpuscular Hemoglobin 34.8 27.0-33.0 pg Mean Corpuscular HGB Conc 32.7 31.0-36.0 g/dl Red Cell Distribution Width 14.5 11.0-16.0 % Platelet Count 286 160-400 X10*3/uL Mean Platelet Volume 9.7 9.4-12.4 fL Neutrophils Percent Auto 63.7 45-73 % Imm Gran Pct Auto 0.3 0.0-0.4 % Lymphocytes Percent Auto 15.9 20-40 % Monocytes Percent Auto 7.9 2-11 % Eosinophils Percent Auto 11.5 0-4 % Basophils Percent Auto 0.7 0-2 % NRBC Pct Auto 0.0 0.0-0.2 /100WBC Neutrophils Absolute Auto 3.7 2.0-8.3 x10*3/u L Imm Gran Abs Auto 0.02 0.00-0.03 X10*3/uL Lymphocytes Absolute Auto 0.9 1.2-4.9 X10*3/u L Monocytes Absolute Auto 0.5 0.1-1.2 X10*3/uL Eosinophils Absolute Auto 0.7 0.0-0.4 X10*3/u L Basophils Absolute Auto 0.0 0.0-0.2 X10*3/uL NRBC Abs Auto 0.000 0.0-0.012 X10*3/uL Liver Panel Reviewed date:11/21/2024 06:25:09 PM Interpretation: Performing Lab:[address] [phone] Notes/Report: Bilirubin Total 0.4 0.0-1.0 mg/dL Bilirubin Direct 0.2 0.0-0.5 mg/dL Aspartate Amino Transferase 22 5-37 U/L Alanine Aminotransferase 13 0-40 U/L Total Protein 6.8 6.5-8.0 g/dL Albumin Level 4.0 3.5-5.0 g/dL Alkaline Phosphatase 77 39-117 U/L Complete Blood Count Auto Di ff Reviewed date:12/31/2024 12:56:28 AM Interpretation: Performing Lab:[address] [phone] Notes/Report: White Blood Count 6.0 4.8-10.8 X10*3/uL Red Blood Count 3.79 4.60-5.80 X10*6/uL Hemoglobin 13.3 14.0-18.0 g/dl Hematocrit 40.7 42.0-52.0 % Mean Corpuscular Volume 107.4 80.0-98.0 fL Mean Corpuscular Hemoglobin 35.1 27.0-33.0 pg Mean Corpuscular HGB Conc 32.7 31.0-36.0 g/dl Red Cell Distribution Width 14.3 11.0-16.0 % Platelet Count 270 160-400 X10*3/uL Mean Platelet Volume 10.3 9.4-12.4 fL Neutrophils Percent Auto 65.0 45-73 % Imm Gran Pct Auto 0.5 0.0-0.4 % Lymphocytes Percent Auto 17.1 20-40 % Monocytes Percent Auto 7.8 2-11 % Eosinophils Percent Auto 9.1 0-4 % Basophils Percent Auto 0.5 0-2 % NRBC Pct Auto 0.0 0.0-0.2 /100WBC Neutrophils Absolute Auto 3.9 2.0-8.3 x10*3/u L Imm Gran Abs Auto 0.03 0.00-0.03 X10*3/uL Lymphocytes Absolute Auto 1.0 1.2-4.9 X10*3/u L Monocytes Absolute Auto 0.5 0.1-1.2 X10*3/uL Eosinophils Absolute Auto 0.6 0.0-0.4 X10*3/u L Basophils Absolute Auto 0.0 0.0-0.2 X10*3/uL NRBC Abs Auto 0.000 0.0-0.012 X10*3/uL Liver Panel Reviewed date:12/31/2024 12:57:11 AM Interpretation: Performing Lab:[facility], [address] [place] [phone] Notes/Report: Bilirubin Total 0.4 0.0-1.0 mg/dL Bilirubin Direct 0.2 0.0-0.5 mg/dL Aspartate Amino Transferase 21 5-37 U/L Alanine Aminotransferase 14 0-40 U/L Total Protein 6.9 6.5-8.0 g/dL Albumin Level 4.0 3.5-5.0 g/dL Alkaline Phosphatase 86 39-117 U/L Reason For Referral No Information Medications Medication SIG (Take, Route, Frequency, Duration) Notes Start Date End Date Status Pentasa 500 MG 2 capsules Orally Four times a day for 30 day(s) 02/02/2021 Unknown Stelara 90 MG/ML as directed Subcutaneous Last dose in 12/2021 Unknown Multivitamin Active Calcium + D Active azaTHIOprine 50 MG 1 1/2 tablets Orally Once a day for 90 days 02/27/2023 Active Humira Pen 40 MG/0.8ML 1 Pen Subcutaneou s Every other week for 28 days 02/24/2021 Unknown Humira-CD/UC/HS Starter 40 MG/0.8ML 2 Pens on Day #1, 2 Pens on day # 2 then 2 Pens on Day # 15 Subcutaneous QD for 15 days 02/24/2021 Unknown metroNIDAZOLE 500 MG 1 tablet Orally jesus manuel ry 8 hrs Unknown Immunizations Vaccine Route Administration Date Status Comme nts Influenza Unknown 04/02/2019 Refused Influenza Unknown 10/17/2024 Refused Social History Tobacco Use: Social History Observation Description Date Details (start date - stop date) Former Smoker NA - NA Tobacco Use/Smoking Question Answer Notes Patient is a former smoker How long has it been since you last smoked? 1-5 years Alcohol Screen Question Answer Notes Did you have a drink containing alcohol in the p ast year? No Points 0 Interpretation Negative Section Notes: Nonsmoker; rare alcohol Nonsmoker; rare alcohol Nonsmoker; rare alcohol Nonsmoker; rare alcohol Nonsmoker; rare alcohol Nonsmoker; rare alcohol Nonsmoker; rare alcohol Nonsmoker; rare alcohol Nonsmoker; rare alcohol Nonsmoker; rare alcohol Nonsmoker; rare alcohol Nonsmoker; rare alcohol Nonsmoker; rare alcohol Nonsmoker; rare alcohol Nonsmoker; rare alcohol Nonsmoker; rare alcohol Nonsmoker; rare alcohol Nonsmoker; rare alcohol Nonsmoker; rare alcohol Nonsmoker; rare alcohol Nonsmoker; rare alcohol Nonsmoker; rare alcohol Vital Signs Temperature 98.9 degrees Fahrenheit 10/17/2024 Blood pressure diastolic 00 mm Hg 10/17/2024 Height 68.5 in 10/17/2024 Blood pressure systolic 000 mm Hg 10/17/2024 Weight 137 lbs 10/17/2024 BMI 20.53 kg/m2 10/17/2024 Encounters Encounter Location Date Provider Diagnosis [facility] [address] [place] [phone] 04/16/2024 Alexis Hernandez Crohn's disease of both small and large intestine without complication K50.80 and Therapeutic drug monitoring Z51.81 [facility] [address] [place] [phone] 10/17/2024 Alexis Hernandez Crohn's disease of both small and large intestine without complication K50.80 and Therapeutic drug monitoring Z51.81 [facility] [address] [place] [phone] 11/27/2024 Alexis Hernandez [facility] [address] [place] [phone] 12/11/2024 Alexis Hernandez Vitamin B 12 deficiency E53.8 [facility] [address] [place] [phone] 12/18/2024 Alexis Hernandez Vitamin B 12 deficiency E53.8 [facility] [address] [place] [phone] 01/01/2025 Alexis Hernandez Vitamin B12 deficien cy E53.8 [facility] [address] [place] [phone] 02/05/2025 Alexis Hernandez [facility] [address] [place] [phone] 03/06/2024 Alexis Hernandez [facility] [address] [place] [address] 09/23/2024 Alexis Hernandez [facility] [address] [place] [phone] 10/24/2024 Alexis Hernandez [facility] [address] [place] [phone] 11/21/2024 Alexis Hernandez Macrocytosis without anemia D75.89 and Vitamin B12 deficiency anemia, unspecified D51.9 [facility] [address] [place] [phone] 11/25/2024 Alexis Hernandez [facility] [address] [place] [phone] 12/22/2024 Alexis Hernandez Assessments Encounter Date Diagnosis (ICD Code) Assessment Notes Treatment Notes Treatment Clinical Notes Section Notes 04/16/2024 Crohn's disease of both small and large intestine without complication (ICD-10 - K50.80) Overall, Vee appears to be doing very well and his Crohn's disease remains in clinical remission on his current regimen of azathioprine. As such, he will continue this regimen. I will check laboratories for some azathioprine levels when he has his next CBC and liver profile done in June. I did advise him to stay on a good diet but to avoid a lot of roughage given the history of the Crohn's disease involving his small bowel. If things remain well I will plan to see Vee in 6 months for a followup visit but did advise him to certainly call in the interim if he has any problems or questions I can be of assistance with. Vee was comfortable with this plan. Thank you again for allowing me to participate in Vee's care. I shall continue to keep you advised of his progress. 04/16/2024 Therapeutic drug monitoring (ICD-10 - Z51.81) Overall, Vee appears to be doing very well and his Crohn's disease remains in clinical remission on his current regimen of azathioprine. As such, he will continue this regimen. I will check laboratories for some azathioprine levels when he has his next CBC and liver profile done in June. I did advise him to stay on a good diet but to avoid a lot of roughage given the history of the Crohn's disease involving his small bowel. If things remain well I will plan to see Vee in 6 months for a followup visit but did advise him to certainly call in the interim if he has any problems or questions I can be of assistance with. Vee was comfortable with this plan. Thank you again for allowing me to participate in Vee's care. I shall continue to keep you advised of his progress. 10/17/2024 Crohn's disease of both small and large intestine without complication (ICD-10 - K50.80) Overall, Vee appears well. His Crohn's disease remains in clinical remission on the current regimen of the azathioprine. He'll continue that for the foreseeable future as long as things remain stable and he continues to tolerate it. I did advise him to continue to do his monthly CBC and liver profile, and also gave him a new lab order for the azathioprine metabolites. We did review that he won't need another screening colonoscopy until 2032 given his negative exam in 2022. At this point, as long as things remain stable, I will plan to see him in one year for his followup visit. I did advise him to keep up with his usual blood work but to certainly call me in the interim if he has any problems or questions I can be of assistance with. Vee was comfortable with this plan. Thank you again for allowing me to participate in Vee's care. I shall continue to keep you advised of his progress. 10/17/2024 Therapeutic drug monitoring (ICD-10 - Z51.81) Overall, Vee appears well. His Crohn's disease remains in clinical remission on the current regimen of the azathioprine. He'll continue that for the foreseeable future as long as things remain stable and he continues to tolerate it. I did advise him to continue to do his monthly CBC and liver profile, and also gave him a new lab order for the azathioprine metabolites. We did review that he won't need another screening colonoscopy until 2032 given his negative exam in 2022. At this point, as long as things remain stable, I will plan to see him in one year for his followup visit. I did advise him to keep up with his usual blood work but to certainly call me in the interim if he has any problems or questions I can be of assistance with. Vee was comfortable with this plan. Thank you again for allowing me to participate in Vee's care. I shall continue to keep you advised of his progress. 12/11/2024 Vitamin B 12 deficiency (ICD-10 - E53.8) 12/18/2024 Vitamin B 12 deficiency (ICD-10 - E53.8) 01/01/2025 Vitamin B12 deficiency (ICD-10 - E53.8) 11/21/2024 Vitamin B12 deficiency anemia, unspecified (ICD-10 - D51.9) 11/21/2024 Macrocytosis without anemia (ICD-10 - D75.89) Plan Of Treatment Pending Test Test Name Order Date LIVER PROFILE 09/20/2023 LIVER PROFILE 04/06/2021 LIVER PROFILE 03/31/2015 LIVER PROFILE 02/10/2012 LIVER PROFILE 10/17/2024 LIVER PROFILE 03/29/2018 LIVER PROFILE 03/22/2016 LIVER PROFILE 03/24/2021 LIVER PROFILE 06/03/2014 LIVER PROFILE 08/11/2022 LIVER PROFILE 04/02/2019 LIVER PROFILE 12/23/2016 LIVER PROFILE 05/21/2014 IRON + IBC (FE) 01/22/2013 FERRITIN 01/22/2013 VITAMIN B12 AND FOLATE 01/22/2013 VITAMIN B12 AND FOLATE 06/03/2014 CBC w DIFF 05/21/2014 CBC w DIFF 09/20/2023 CBC w DIFF 04/06/2021 CBC w DIFF 03/31/2015 CBC w DIFF 02/10/2012 CBC w DIFF 10/17/2024 CBC w DIFF 03/29/2018 CBC w DIFF 03/22/2016 CBC w DIFF 03/24/2021 CBC w DIFF 08/11/2022 CBC w DIFF 04/02/2019 CBC w DIFF 06/03/2014 CBC w DIFF 12/23/2016 XR GI SMALL BOWEL SERIES 12/06/2012 PROMETHEUS THIOPURINE METABOLITES (TPMT) 12/23/2016 PROMETHEUS THIOPURINE METABOLITES (TPMT) 07/19/2016 PROMETHEUS TPMT ENZYME 07/19/2016 PROMETHEUS TPMT GENETICS 07/19/2016 Complete Blood Count Auto Diff 3 Liver Panel 07/22/2021 Prom Thiopurine Metabolites 04/16/2024 Prom Thiopurine Metabolites 10/17/2024 T Spot TB 06/18/2021 Future Test Test Name Order Date COLONOSCOPY 08/11/2022 Next Appt Details Provider Name:Alexis Hernandez , 10/21/2025 09:10:00 AM, [address] [place] [address], [address], [address], Insurance Providers Payer Name Payer Address Payer Phone Subscriber Number Group Number Insured Name Patient Relationship to Insured Coverage Start Date [facility]age End Date [facility] [address] [place], [place] [id number] [phone] [id number] VEE RESENDEZ Self - patient is the insured Medications Administered Medication Instructions Date of Administration [...] 06/15/2021 1000 ug B-12 10/14/2021 1000 ug B12 11/27/2024 1000 mL B-12 12/11/2024 1000 mL B-12 01/01/2025 1000 mL B-12 02/05/2025 1000 mL B-12 10/21/2025 1000 mL Medical (General) History Medical History History ICD Code Crohn's disease of the termi nal ileum since 1985-s/p surgery x 2, and intraabdominal abscess as described below--last colonoscopy in 11/2010 with no active disease Gallstones B12 deficiency--reveived 3 B 12 shots in 01/2021-02/2021, then started a monthly shot Denies MO,DM,CVA,Lung disease,renal dise ase Hospitalization in 10/2012 fo [...] COVID 12/2020-not hospitalized Hospitalized in 01/2021 for C cathien's with active Crohn's of the TI with [...]
--- OUTSIDE RECORDS SUMMARY | 2025-03-04 09:55 | XMS_ITS ---
Author Organization [facility] Address [address] [place] [address] Care Team Providers Care Multiple Drum Sander Helper Name Role Phone Julio Cesar ARANA, [place] Primary Care Provider Alexis Garcia Unavailable [phone] Stephen ARANA, [place] Unavailable Unavailable REASON FOR VISIT B12 deficiency Medications Medication SIG (Take, Route, Frequency, Duration) Notes Start Date End Date Status Calcium + D Active azaTHIOprine 50 MG [...] Orally jesus manuel ry 8 hrs Unknown Pentasa 500 MG 2 capsules Orally Four times a day for 30 day(s) 02/02/2021 Unknown Stelara 90 MG/ML as directed Subcutaneous Last dose in 12/2021 Unknown Multivitamin Active Encounters Encounter Location Date Provider Diagnosis [facility] [address] [place] [address] 02/05/2025 Alexis Hernandez Plan Of Treatment Next Appt Details Provider Name:Alexis Hernandez , 10/21/2025 09:10:00 AM, [address], [address], [place], [address], Medications Administered Medication Instructions Date of Administration Dosage Notes B-12 02/05/2025 1000 mL Progress Notes * VEE RESENDEZ JrDOB:[birth year] (69 yo M)Acc No.[id number]:02/05/2025 SHOT Patient:VEE GONZALES J r Provider:?Alexis Hernandez MD :1955???Age:69 Y???Sex:Male Willard e:02/05/2025 Address:[address] [place] [address], [place] Pcp:Haroon Harrell MD Subjective: * Chief Complaints: [...] every 8 hrs Objective: * Vitals:? Assessment: Plan: * Treatment: * Therapeutic Injections:? B-12 : 1000 mL (Dose No:1) (Route: Intramuscular) given by Kenyatta Love on left arm intramuscular * Procedure Codes:?J3420 INJ V IT B-12 CYNOCOBLMN TO 1000 MCG, [address] THER/PROPH/DIAG INJ, SC/IM * * Sign off status: Completed true * Provider:?Alexis Hernandez MD Date:? 025 Generated for Printi ng/Faxing/eTransmitting on:?03/04/2025 09:54 AM EDT
--- OUTSIDE RECORDS SUMMARY | 2025-03-04 09:55 | XMS_ITS ---
Author Organization [facility] Address [address] [place] [address] Care Team Providers Care Clinical Coordinator Name Role Phone Julio Cesar ARANA, [place] Primary Care Provider Unava Alexis Arnett Unavailable [phone] [place] Mitchell MD Unavailable Unavailable Encounters Encounter Location Date Provider Diagnosis [facility] [address] [place] [address] 12/22/2024 Alexis Hernandez Plan Of Treatment Next Appt Details Provider Name:Alexis Mateo Hernandez , 10/21/2025 09:10:00 AM, [address], [address], [place], [address], Progress Notes * VEE RESENDEZ JrDOB:[birth year] (69 yo M)Acc No.[id number]:12/22/2024 Patient:?VEE RESENDEZ r :1955???Age:69 Y???Sex:Male Address:[address] [place], [place] [address] [address] * true * Date:? Generated for Rossi kennedy/Dora/eTransmitting on:?03/04/2025 09:54 AM EDT
--- OUTSIDE RECORDS SUMMARY | 2025-03-04 09:55 | XMS_ITS ---
Author Organization [facility] Address [address] [place] [address] Care Team Providers Care Home Lending Officer Name Role Phone Julio Cesar ARANA, [place] Primary Care Provider Alexis Garcia Unavailable [phone] Stephen ARANA, [place] Unavailable Unavailable REASON FOR [...] other week for 28 days 02/24/2021 Unknown metroNIDAZOLE 500 MG 1 tablet Orally jesus manuel ry 8 hrs Unknown Stelara 90 MG/ML as directed Subcutaneous Last dose in 12/2021 Unknown azaTHIOprine 50 MG 1 1/2 tablets Orally Once a day for 90 days 02/27/2023 Active Calcium + D Active Multivitamin Active Encounters Encounter Location Date Provider Diagnosis [facility] [address] [place] [address] 01/01/2025 Alexis Hernandez Vitamin B12 deficiency E53.8 Assessments Encounter Date Diagnosis (ICD Code) Assessment Notes Treatment Notes Treatment Clinical Notes Section Notes 01/01/2025 Vitamin B12 deficiency (ICD-10 - E53.8) Plan Of Treatment Next Appt Details Provider Name:Alexis Hernandez , 10/21/2025 09:10:00 AM, [address], [address], [place], [address], Medications Administered Medication Instructions Date of Administration Dosage Notes B-12 01/01/2025 1000 mL Progress Notes * VEE RESENDEZ JrDOB:[birth year] (69 yo M)Acc No.[id number]:01/01/2025 SHOT Patient:?VEE RESENDEZ J r Provider:?Alexis Hernandez MD :1955???Age:69 Y???Sex:Male Willard e:01/01/2025 Address:[address] [place] [address], [place], [place] Pcp:Haroon Harrell MD Subjective: * Chief Complaints: [...] Objective: * Vitals:? Assessment: * Assessment: 1.?Vitamin B12 deficiency - E53.8 (Primary)??? Plan: * Treatment: * Therapeutic Injections:? B-12 : 1000 mL (Dose No:1) (Route: Intramuscular) given by Kenyatta Love on left arm intramuscular (Vitamin B12 deficiency) * Procedure Codes:?J3420 INJ V IT B-12 CYNOCOBLMN TO 1000 MCG, [address] THER/PROPH/DIAG INJ, SC/IM * * Sign off status: Completed true * Provider:?Alexis Hernandez MD Date:? 025 Generated for Pee benavides/Dora/Emily on:?03/04/2025 09:54 AM EDT
[2025-03-04 10:25] LABS: MANUAL DIFF FLAG NO
[2025-03-04 10:28] LABS: Basophils Percent Auto 0.7 % (0-2); Eosinophils Absolute Auto 0.5 X10*3/uL (0.0-0.4); Eosinophils Percent Auto 9.1 % (0-4); Hematocrit 40.5 % (42.0-52.0); Hemoglobin 13.3 g/dl (14.0-18.0); Imm Gran Abs Auto 0.03 X10*3/uL (0.00-0.03); Imm Gran Pct Auto 0.5 % (0.0-0.4); Lymphocytes Absolute Auto 0.9 X10*3/uL (1.2-4.9); Lymphocytes Percent Auto 14.9 % (20-40); Mean Corpuscular HGB Conc 32.8 g/dl (31.0-36.0); Mean Corpuscular Hemoglobin 34.9 pg (27.0-33.0); Mean Corpuscular Volume 106.3 fL (80.0-98.0); Mean Platelet Volume 10.2 fL (9.4-12.4); Monocytes Absolute Auto 0.5 X10*3/uL (0.1-1.2); Monocytes Percent Auto 8.1 % (2-11); Neutrophils Absolute Auto 3.9 x10*3/uL (2.0-8.3); Neutrophils Percent Auto 66.7 % (45-73); Platelet Count 296 X10*3/uL (160-400); Red Blood Count 3.81 X10*6/uL (4.60-5.80); Red Cell Distribution Width 13.2 % (11.0-16.0); White Blood Count 5.8 X10*3/uL (4.8-10.8)
[2025-03-04 11:37] LABS: Alanine Aminotransferase 14 U/L (0-40); Albumin Level 4.1 g/dL (3.5-5.0); Alkaline Phosphatase 76 U/L (39-117); Aspartate Amino Transferase 23 U/L (5-37); Bilirubin Direct 0.3 mg/dL (0.0-0.5); Bilirubin Total 0.4 mg/dL (0.0-1.0); Total Protein 6.7 g/dL (6.5-8.0)
== END 2025-03-04 09:13 | disposition home or self-care (01) ==
LOC: HO.HMGCLR 09:12
PROVIDERS: Visit Provider Internal Medicine
DX: K50.80 Crohn's disease of both small and large intestine without complications (principal)
CPT/HCPCS: 36415; 80076; 85025

== ENCOUNTER 2025-04-24 10:36 | Outpatient (REF) | payer MEDICARE, SELFPAY ==
--- OUTSIDE RECORDS SUMMARY | 2025-04-24 11:17 | XMS_ITS | Patient Health Record ---
Author Organization [facility] Address [address] [place] [address] Care Team Providers Care Technical Operations Specialist Name Role Phone Julio Cesar ARANA, Haroon Primary Care Provider Alexis Garcia Unavailable [phone] Bethel Mitchell MD Unavailable Unavailable Allergies Allergen (clinical drug ingredient) Drug/Non Drug Allergy documented on EMR Reaction Allergy Type Onset Date Status Penicillin Unknown Drug Allergy Active Results Component Value Reference Range Notes Prom Thiopurine Metabolites (Not yet reviewed by provider) Interpretation: Performing Lab:[address] [phone] Notes/Report: Prom Thiopurine Metabolites SEE NOTE SEE SCANNED RESULTS IN EMR Vitamin B12 and Folate Reviewed date:11/27/2024 02:20:21 PM Interpretation: Performing Lab:[facility], [address] [place] [phone] Notes/Report: Vitamin B12 < 148 200-900 pg/mL NORMAL 200-900 PG/ML INDETERMINATE 160-199 PG/ML DEFICIENT < 160 PG/ML Folate 11.1 > or = 4.0 ng/mL Reference Values: > or = 4.0 ng/mL < 4.0 ng/mL suggests folate deficiency Methotrexate, aminopterin and folinic acid (leucovorin) are chemotherapeutic agents whose molecular structures are similar to folate; therefore, the [employer] folate assay cannot be used for patients using these drugs. TSH reflex Free T4 Reviewed date:11/24/2024 09:57:46 AM Interpretation: Performing Lab:[facility], [address] [place] [phone] Notes/Report: TSH reflex Free T4 2.03 0.32-4.0 uIU/mL Complete Blood Count Auto Di ff Reviewed date:07/04/2024 04:35:40 PM Interpretation: Performing Lab:[facility], [address] [place] [phone] Notes/Report: White Blood Count 6.7 4.8-10.8 X10*3/uL [...] Panel Reviewed date:07/04/2024 04:34:56 PM Interpretation: Performing Lab:[facility], [address] [place] [phone] Notes/Report: Bilirubin Total 0.4 0.0-1.0 mg/dL Bilirubin Direct 0.2 0.0-0.5 mg/dL Aspartate Amino Transferase 20 5-37 U/L Alanine Aminotransferase 11 0-40 U/L Total Protein 6.4 6.5-8.0 g/dL Albumin Level 4.0 3.5-5.0 g/dL Alkaline Phosphatase 69 39-117 U/L Complete Blood Count Auto Di ff Reviewed date:08/28/2024 05:58:52 PM Interpretation: Performing Lab:[facility], [address] [place] [phone] Notes/Report: White Blood Count 7.0 4.8-10.8 X10*3/uL [...] Panel Reviewed date:08/29/2024 07:51:31 PM Interpretation: Performing Lab:[facility], [address] [place] [phone] Notes/Report: Bilirubin Total 0.4 0.0-1.0 mg/dL Bilirubin Direct 0.2 0.0-0.5 mg/dL Aspartate Amino Transferase 34 5-37 U/L Alanine Aminotransferase 21 0-40 U/L Total Protein 6.7 6.5-8.0 g/dL Albumin Level 4.2 3.5-5.0 g/dL Alkaline Phosphatase 82 39-117 U/L Complete Blood Count Auto Di ff Reviewed date:10/07/2024 08:13:29 PM Interpretation: Performing Lab:[facility], [address] [place] [phone] Notes/Report: White Blood Count 6.0 4.8-10.8 X10*3/uL [...] Panel Reviewed date:10/02/2024 01:50:24 PM Interpretation: Performing Lab:[facility], [address] [place] [phone] Notes/Report: Bilirubin Total 0.4 0.0-1.0 mg/dL Bilirubin Direct 0.2 0.0-0.5 mg/dL Aspartate Amino Transferase 27 5-37 U/L Alanine Aminotransferase 18 0-40 U/L Total Protein 7.0 6.5-8.0 g/dL Albumin Level 4.3 3.5-5.0 g/dL Alkaline Phosphatase 84 39-117 U/L Complete Blood Count Auto Di ff Reviewed date:11/21/2024 06:23:08 PM Interpretation: Performing Lab:[facility], [address] [place] [phone] Notes/Report: White Blood Count 5.8 4.8-10.8 X10*3/uL [...] Panel Reviewed date:11/21/2024 06:25:09 PM Interpretation: Performing Lab:[facility], [address] [place] [phone] Notes/Report: Bilirubin Total 0.4 0.0-1.0 mg/dL Bilirubin Direct 0.2 0.0-0.5 mg/dL Aspartate Amino Transferase 22 5-37 U/L Alanine Aminotransferase 13 0-40 U/L Total Protein 6.8 6.5-8.0 g/dL Albumin Level 4.0 3.5-5.0 g/dL Alkaline Phosphatase 77 39-117 U/L Complete Blood Count Auto Di ff Reviewed date:12/31/2024 12:56:28 AM Interpretation: Performing Lab:[facility], [address] [place] [phone] Notes/Report: White Blood Count 6.0 4.8-10.8 X10*3/uL [...] Panel Reviewed date:12/31/2024 12:57:11 AM Interpretation: Performing Lab:[facility], [address] [place] [phone] Notes/Report: Bilirubin Total 0.4 0.0-1.0 mg/dL Bilirubin Direct 0.2 0.0-0.5 mg/dL Aspartate Amino Transferase 21 5-37 U/L Alanine Aminotransferase 14 0-40 U/L Total Protein 6.9 6.5-8.0 g/dL Albumin Level 4.0 3.5-5.0 g/dL Alkaline Phosphatase 86 39-117 U/L Complete Blood Count Auto Di ff Reviewed date:03/07/2025 06:53:05 PM Interpretation: Performing Lab:[facility], [address] [place] [phone] Notes/Report: White Blood Count 5.8 4.8-10.8 X10*3/uL Red Blood Count 3.81 4.60-5.80 X10*6/uL Hemoglobin 13.3 14.0-18.0 g/dl Hematocrit 40.5 42.0-52.0 % Mean Corpuscular Volume 106.3 80.0-98.0 fL Mean Corpuscular Hemoglobin 34.9 27.0-33.0 pg Mean Corpuscular HGB Conc 32.8 31.0-36.0 g/dl Red Cell Distribution Width 13.2 11.0-16.0 % Platelet Count 296 160-400 X10*3/uL Mean Platelet Volume 10.2 9.4-12.4 fL Neutrophils Percent Auto 66.7 45-73 % Imm Gran Pct Auto 0.5 0.0-0.4 % Lymphocytes Percent Auto 14.9 20-40 % Monocytes Percent Auto 8.1 2-11 % Eosinophils Percent Auto 9.1 0-4 % Basophils Percent Auto 0.7 0-2 % NRBC Pct Auto 0.0 0.0-0.2 /100WBC Neutrophils Absolute Auto 3.9 2.0-8.3 x10*3/u L Imm Gran Abs Auto 0.03 0.00-0.03 X10*3/uL Lymphocytes Absolute Auto 0.9 1.2-4.9 X10*3/u L Monocytes Absolute Auto 0.5 0.1-1.2 X10*3/uL Eosinophils Absolute Auto 0.5 0.0-0.4 X10*3/u L Basophils Absolute Auto 0.0 0.0-0.2 X10*3/uL NRBC Abs Auto 0.000 0.0-0.012 X10*3/uL Liver Panel Reviewed date:03/04/2025 11:57:57 AM Interpretation: Performing Lab:[facility], [address] [place] [phone] Notes/Report: Bilirubin Total 0.4 0.0-1.0 mg/dL Bilirubin Direct 0.3 0.0-0.5 mg/dL Aspartate Amino Transferase 23 5-37 U/L Alanine Aminotransferase 14 0-40 U/L Total Protein 6.7 6.5-8.0 g/dL Albumin Level 4.1 3.5-5.0 g/dL Alkaline Phosphatase 76 39-117 U/L Reason For Referral No Information Medications Medication SIG (Take, Route, Frequency, Duration) Notes Start Date End Date Status azaTHIOprine 50 MG 1 1/2 tablets Orally Once a day for 90 days 02/27/2023 Active Calcium + D Active metroNIDAZOLE 500 MG 1 tablet Orally jesus manuel ry 8 hrs Unknown Humira Pen 40 MG/0.8ML 1 Pen Subcutaneou s Every other week for 28 days 02/24/2021 Unknown Stelara 90 MG/ML as directed Subcutaneous Last dose in 12/2021 Unknown Multivitamin Active Humira-CD/UC/HS Starter 40 MG/0.8ML 2 Pens on Day #1, 2 Pens on day # 2 then 2 Pens on Day # 15 Subcutaneous QD for 15 days 02/24/2021 Unknown Pentasa 500 MG 2 capsules Orally Four times a day for 30 day(s) 02/02/2021 Unknown Immunizations Vaccine Route Administration Date Status [...] alcohol Nonsmoker; rare alcohol Nonsmoker; rare alcohol Problems Problem Type SNOMED Code ICD Code Onset Dates Problem Status W/U Status Risk Notes Problem Colon cancer screening (192648083) Colon cancer screening (Z12.11) Active confirmed Problem 85502779 Crohn's disease of both small and large intestine without complication (K50.80) Active confirmed Problem Vitamin B>12< deficiency anaemia (04078536) Vitamin B12 deficiency anemia, unspecified (D51.9) Active confirmed Problem 05006698 Crohn's disease of small intestine with intestinal obstruction (K50.012) Active confirmed Problem 93634430 Crohn's disease of small intestine with abscess (K50.014) Active confirmed Problem Diverticular disease of colon (823058031) Diverticulosis of large intestine without perforation or abscess without bleeding (K57.30) Active confirmed Problem History of gastrointestinal tract bypass (222514258) Intestinal bypass and anastomosis status (Z98.0) Active confirmed Problem 71008777 Crohns disease o f both small and large intestine without complication (K50.80) Active confirmed Problem Crohn (25974359) Crohn's disease of colon (K50.10) Active confirmed Problem 52178383 Crohns disease o f small intestine with intestinal obstruction (K50.012) Active confirmed Problem 416783517 Vitamin B12 deficiency (E53.8) Active confirmed Problem 680968587 Vitamin B 12 deficiency (E53.8) Active confirmed Problem Crohn's disease of small intestine (52616672) Crohn's disease of small intestine without complication (K50.00) Active confirmed Problem 247912242 Therapeutic drug monitoring (Z51.81) Active confirmed Problem Macrocytosis - no anemia (923769704) Macrocytosis without anemia (D75.89) Active confirmed Problem 53641119 Crohn's disease of small intestine with complication (K50.019) Active confirmed Problem 82272423 Crohn's disease of ileum with complication (K50.019) Active confirmed Vital Signs Temperature 98.9 degrees Fahrenheit 10/17/2024 Blood pressure diastolic 00 mm Hg 10/17/2024 Height 68.5 in 10/17/2024 Blood pressure systolic 000 mm Hg 10/17/2024 Weight 137 lbs 10/17/2024 BMI 20.53 kg/m2 10/17/2024 Encounters Encounter Location Date Provider Diagnosis [facility] [address] [place] [phone] 10/17/2024 Alexis Hernandez Crohn's disease of both small and large intestine without complication K50.80 and Therapeutic drug monitoring Z51.81 [facility] [address] [place] [phone] 11/27/2024 Alexis Hernandez [facility] [address] [place] [phone] 12/11/2024 Alexis Hernandez Vitamin B 12 deficiency E53.8 [facility] [address] [place] [phone] 12/18/2024 Alexis Hernandez Vitamin B 12 deficiency E53.8 [facility] [address] [place] [phone] 01/01/2025 Alexis Hernandez Vitamin B12 deficien cy E53.8 [facility] [address] [place] [phone] 02/05/2025 Alexis Hernandez [facility] [address] [place] [phone] 03/12/2025 Alexis Hernandez Vitamin B12 deficien cy E53.8 [facility] [address] [place] [phone] 04/16/2025 Alexis Hernandez Vitamin B 12 deficiency E53.8 [facility] [address] [place] [phone] 09/23/2024 Alexis Hernandez [facility] [address] [place] [phone] 10/24/2024 Alexis Hernandez [facility] [address] [place] [phone] 11/21/2024 Alexis Hernandez Macrocytosis without anemia D75.89 and Vitamin B12 deficiency anemia, unspecified D51.9 [facility] [address] [place] [phone] 11/25/2024 Alexis David [facility] [address] [place] [phone] 12/22/2024 Alexis Hernandez Assessments Encounter Date Diagnosis (ICD Code) Assessment Notes Treatment Notes Treatment Clinical Notes Section Notes 10/17/2024 Crohn's disease of both small [...] 01/01/2025 Vitamin B12 deficiency (ICD-10 - E53.8) 03/12/2025 Vitamin B12 deficiency (ICD-10 - E53.8) 04/16/2025 Vitamin B 12 deficiency (ICD-10 - E53.8) 11/21/2024 Vitamin B12 deficiency anemia, unspecified (ICD-10 - D51.9) 11/21/2024 Macrocytosis without anemia (ICD-10 - D75.89) Plan Of Treatment Pending Test Test Name Order Date LIVER PROFILE 03/22/2016 LIVER PROFILE 03/24/2021 LIVER PROFILE 06/03/2014 LIVER PROFILE 08/11/2022 LIVER PROFILE 04/02/2019 LIVER PROFILE 12/23/2016 LIVER PROFILE 05/21/2014 LIVER PROFILE 09/20/2023 LIVER PROFILE 04/06/2021 LIVER PROFILE 03/31/2015 LIVER PROFILE 02/10/2012 LIVER PROFILE 10/17/2024 LIVER PROFILE 03/29/2018 IRON + IBC (FE) 01/22/2013 FERRITIN 01/22/2013 VITAMIN B12 AND FOLATE 06/03/2014 VITAMIN B12 AND FOLATE 01/22/2013 CBC w DIFF 04/06/2021 CBC w DIFF 03/31/2015 CBC w DIFF 02/10/2012 CBC w DIFF 10/17/2024 CBC w DIFF 03/29/2018 CBC w DIFF 03/22/2016 CBC w DIFF 03/24/2021 CBC w DIFF 08/11/2022 CBC w DIFF 04/02/2019 CBC w DIFF 06/03/2014 CBC w DIFF 12/23/2016 CBC w DIFF 05/21/2014 CBC w DIFF 09/20/2023 XR GI SMALL BOWEL SERIES 12/06/2012 PROMETHEUS THIOPURINE METABOLITES (TPMT) 07/19/2016 PROMETHEUS THIOPURINE METABOLITES (TPMT) 12/23/2016 PROMETHEUS TPMT ENZYME 07/19/2016 PROMETHEUS TPMT GENETICS 07/19/2016 Complete Blood Count Auto Diff Liver Panel 07/22/2021 Prom Thiopurine Metabolites 10/17/2024 Prom Thiopurine Metabolites 04/16/2024 T Spot TB 06/18/2021 Future Test Test Name Order Date COLONOSCOPY 08/11/2022 Next Appt Details Provider Name:Alexis Hernandez , 10/21/2025 09:10:00 AM, [address] [place] [address], [place] [address], [place], [phone], Insurance Providers Payer Name Payer Address Payer Phone Subscriber Number Group Number Insured Name Patient Relationship to Insured Coverage Start Date Coverage End Date [facility] [address] [place], [place] [id number] [id number] Self - patient is the [...] 1000 mL B-12 02/05/2025 1000 mL B-12 03/12/2025 1000 mL B-12 04/16/2025 1000 mL B-12 10/21/2025 1000 mL Medical (General) History Medical History History ICD Code Crohn's disease of the termi nal ileum since 1985-s/p surgery x 2, and intraabdominal abscess as described below--last colonoscopy in 11/2010 with no active disease Gallstones B12 deficiency--reveived 3 B 12 shots in 01/2021-02/2021, then started a monthly shot Denies [place],DM,CVA,Lung disease,renal dise ase Hospitalization in 10/2012 fo [...] 12/2020-not hospitalized Hospitalized in 01/2021 for C rohn's with active Crohn's of the TI with [...]
[2025-04-24 14:26] LABS: MANUAL DIFF FLAG NO
[2025-04-24 14:37] LABS: Hematocrit 40.2 % (42.0-52.0); Hemoglobin 13.1 g/dl (14.0-18.0); Imm Gran Abs Auto 0.01 X10*3/uL (0.00-0.03); Imm Gran Pct Auto 0.2 % (0.0-0.4); Lymphocytes Absolute Auto 0.9 X10*3/uL (1.2-4.9); Mean Corpuscular HGB Conc 32.6 g/dl (31.0-36.0); Mean Corpuscular Hemoglobin 34.6 pg (27.0-33.0); Mean Corpuscular Volume 106.1 fL (80.0-98.0); NRBC Abs Auto 0.000 X10*3/uL (0.0-0.012); NRBC Pct Auto 0.0 /100WBC (0.0-0.2); Platelet Count 285 X10*3/uL (160-400); Red Blood Count 3.79 X10*6/uL (4.60-5.80); White Blood Count 5.4 X10*3/uL (4.8-10.8)
[2025-04-24 14:53] LABS: Alanine Aminotransferase 16 U/L (0-40); Albumin Level 4.0 g/dL (3.5-5.0); Alkaline Phosphatase 68 U/L (39-117); Aspartate Amino Transferase 24 U/L (5-37); Total Protein 6.4 g/dL (6.5-8.0)
== END 2025-04-24 10:37 | disposition home or self-care (01) ==
LOC: HO.HMGCLR 10:36
PROVIDERS: Visit Provider Internal Medicine
DX: K50.80 Crohn's disease of both small and large intestine without complications (principal)
CPT/HCPCS: 36415; 80076; 85025

== ENCOUNTER 2025-06-30 09:41 | Outpatient (REF) | payer MEDICARE, SELFPAY ==
--- OUTSIDE RECORDS SUMMARY | 2025-06-30 11:52 | XMS_ITS | Patient Health Record ---
Author Organization [facility] Address [address] [place] [address] Care Team Providers Care Surgical Pathologist Name Role Phone Julio Cesar ARANA, Haroon Primary Care Provider Alexis Garcia Unavailable [phone] Bethel Mitchell MD Unavailable Unavailable Allergies Allergen (clinical drug ingredient) Drug/Non Drug Allergy documented on EMR Reaction Allergy Type Onset Date Status Penicillin Unknown Drug Allergy Active Results Component Value Reference Range Notes Prom Thiopurine Metabolites (Not yet reviewed by provider) Interpretation: Performing Lab:[address] [phone] Notes/Report: Prom Thiopurine Metabolites SEE NOTE SEE SCANNED RESULTS IN EMR Vitamin B12 and Folate Reviewed date:11/27/2024 02:20:21 PM Interpretation: Performing Lab:[facility], [address] [place] [phone] Notes/Report: Vitamin B12 < 148 200-900 pg/mL NORMAL 200-900 PG/ML INDETERMINATE 160-199 PG/ML DEFICIENT < 160 PG/ML Folate 11.1 > or = 4.0 ng/mL Reference Values: > or = 4.0 ng/mL < 4.0 ng/mL suggests folate deficiency Methotrexate, aminopterin and folinic acid (leucovorin) are chemotherapeutic agents whose molecular structures are similar to folate; therefore, the Director Payer folate assay cannot be used for patients using these drugs. TSH reflex Free T4 Reviewed date:11/24/2024 09:57:46 AM Interpretation: Performing Lab:[facility], [address] [place] [phone] Notes/Report: TSH reflex Free T4 2.03 0.32-4.0 uIU/mL Complete Blood Count Auto Di ff Reviewed date:07/04/2024 04:35:40 PM Interpretation: Performing Lab:[facility], [address] [place] [phone] Notes/Report: White Blood Count 6.7 4.8-10.8 X10*3/uL [...] Panel Reviewed date:07/04/2024 04:34:56 PM Interpretation: Performing Lab:[facility], [address] [place] [phone] Notes/Report: Bilirubin Total 0.4 0.0-1.0 mg/dL Bilirubin Direct 0.2 0.0-0.5 mg/dL Aspartate Amino Transferase 20 5-37 U/L Alanine Aminotransferase 11 0-40 U/L Total Protein 6.4 6.5-8.0 g/dL Albumin Level 4.0 3.5-5.0 g/dL Alkaline Phosphatase 69 39-117 U/L Complete Blood Count Auto Di ff Reviewed date:08/28/2024 05:58:52 PM Interpretation: Performing Lab:[facility], [address] [place] [phone] Notes/Report: White Blood Count 7.0 4.8-10.8 X10*3/uL [...] Panel Reviewed date:08/29/2024 07:51:31 PM Interpretation: Performing Lab:[facility], [address] [place] [phone] Notes/Report: Bilirubin Total 0.4 0.0-1.0 mg/dL Bilirubin Direct 0.2 0.0-0.5 mg/dL Aspartate Amino Transferase 34 5-37 U/L Alanine Aminotransferase 21 0-40 U/L Total Protein 6.7 6.5-8.0 g/dL Albumin Level 4.2 3.5-5.0 g/dL Alkaline Phosphatase 82 39-117 U/L Complete Blood Count Auto Di ff Reviewed date:10/07/2024 08:13:29 PM Interpretation: Performing Lab:[facility], [address] [place] [phone] Notes/Report: White Blood Count 6.0 4.8-10.8 X10*3/uL [...] Panel Reviewed date:10/02/2024 01:50:24 PM Interpretation: Performing Lab:[facility], [address] [place] [phone] Notes/Report: Bilirubin Total 0.4 0.0-1.0 mg/dL Bilirubin Direct 0.2 0.0-0.5 mg/dL Aspartate Amino Transferase 27 5-37 U/L Alanine Aminotransferase 18 0-40 U/L Total Protein 7.0 6.5-8.0 g/dL Albumin Level 4.3 3.5-5.0 g/dL Alkaline Phosphatase 84 39-117 U/L Complete Blood Count Auto Di ff Reviewed date:11/21/2024 06:23:08 PM Interpretation: Performing Lab:[facility], [address] [place] [phone] Notes/Report: White Blood Count 5.8 4.8-10.8 X10*3/uL [...] Panel Reviewed date:11/21/2024 06:25:09 PM Interpretation: Performing Lab:[facility], [address] [place] [phone] Notes/Report: Bilirubin Total 0.4 0.0-1.0 mg/dL Bilirubin Direct 0.2 0.0-0.5 mg/dL Aspartate Amino Transferase 22 5-37 U/L Alanine Aminotransferase 13 0-40 U/L Total Protein 6.8 6.5-8.0 g/dL Albumin Level 4.0 3.5-5.0 g/dL Alkaline Phosphatase 77 39-117 U/L Complete Blood Count Auto Di ff Reviewed date:12/31/2024 12:56:28 AM Interpretation: Performing Lab:[facility], [address] [place] [phone] Notes/Report: White Blood Count 6.0 4.8-10.8 X10*3/uL [...] Panel Reviewed date:12/31/2024 12:57:11 AM Interpretation: Performing Lab:[facility], [address] [place] [phone] Notes/Report: Bilirubin Total 0.4 0.0-1.0 mg/dL Bilirubin Direct 0.2 0.0-0.5 mg/dL Aspartate Amino Transferase 21 5-37 U/L Alanine Aminotransferase 14 0-40 U/L Total Protein 6.9 6.5-8.0 g/dL Albumin Level 4.0 3.5-5.0 g/dL Alkaline Phosphatase 86 39-117 U/L Complete Blood Count Auto Di ff Reviewed date:03/07/2025 06:53:05 PM Interpretation: Performing Lab:[facility], [address] [place] [phone] Notes/Report: White Blood Count 5.8 4.8-10.8 X10*3/uL [...] Panel Reviewed date:03/04/2025 11:57:57 AM Interpretation: Performing Lab:[address] [phone] Notes/Report: Bilirubin Total 0.4 0.0-1.0 mg/dL Bilirubin Direct 0.3 0.0-0.5 mg/dL Aspartate Amino Transferase 23 5-37 U/L Alanine Aminotransferase 14 0-40 U/L Total Protein 6.7 6.5-8.0 g/dL Albumin Level 4.1 3.5-5.0 g/dL Alkaline Phosphatase 76 39-117 U/L Complete Blood Count Auto Di ff Reviewed date:04/24/2025 11:51:28 PM Interpretation: Performing Lab:[address] [phone] Notes/Report: White Blood Count 5.4 4.8-10.8 X10*3/uL Red Blood Count 3.79 4.60-5.80 X10*6/uL Hemoglobin 13.1 14.0-18.0 g/dl Hematocrit 40.2 42.0-52.0 % Mean Corpuscular Volume 106.1 80.0-98.0 fL Mean Corpuscular Hemoglobin 34.6 27.0-33.0 pg Mean Corpuscular HGB Conc 32.6 31.0-36.0 g/dl Red Cell Distribution Width 14.1 11.0-16.0 % Platelet Count 285 160-400 X10*3/uL Mean Platelet Volume 10.2 9.4-12.4 fL Neutrophils Percent Auto 60.4 45-73 % Imm Gran Pct Auto 0.2 0.0-0.4 % Lymphocytes Percent Auto 16.5 20-40 % Monocytes Percent Auto 7.4 2-11 % Eosinophils Percent Auto 14.8 0-4 % Basophils Percent Auto 0.7 0-2 % NRBC Pct Auto 0.0 0.0-0.2 /100WBC Neutrophils Absolute Auto 3.3 2.0-8.3 x10*3/u L Imm Gran Abs Auto 0.01 0.00-0.03 X10*3/uL Lymphocytes Absolute Auto 0.9 1.2-4.9 X10*3/u L Monocytes Absolute Auto 0.4 0.1-1.2 X10*3/uL Eosinophils Absolute Auto 0.8 0.0-0.4 X10*3/u L Basophils Absolute Auto 0.0 0.0-0.2 X10*3/uL NRBC Abs Auto 0.000 0.0-0.012 X10*3/uL Liver Panel Reviewed date:04/24/2025 11:50:02 PM Interpretation: Performing Lab:[facility], [address] [place] [phone] Notes/Report: Bilirubin Total 0.4 0.0-1.0 mg/dL Bilirubin Direct 0.2 0.0-0.5 mg/dL Aspartate Amino Transferase 24 5-37 U/L Alanine Aminotransferase 16 0-40 U/L Total Protein 6.4 6.5-8.0 g/dL Albumin Level 4.0 3.5-5.0 g/dL Alkaline Phosphatase 68 39-117 U/L Reason For Referral No Information Medications Medication SIG (Take, Route, Frequency, Duration) Notes Start Date End Date Status metroNIDAZOLE 500 MG 1 tablet Orally jesus manuel ry 8 hrs Unknown Calcium + D Active azaTHIOprine 50 MG 1 1/2 tablets Orally Once a day for 90 days 02/27/2023 Active Stelara 90 MG/ML as directed Subcutaneous Last dose in 12/2021 Unknown Multivitamin Active Humira-CD/UC/HS Starter 40 MG/0.8ML 2 Pens on Day #1, 2 Pens on day # 2 then 2 Pens on Day # 15 Subcutaneous QD for 15 days 02/24/2021 Unknown Pentasa 500 MG 2 capsules Orally Four times a day for 30 day(s) 02/02/2021 Unknown Humira Pen 40 MG/0.8ML 1 Pen Subcutaneou s Every other week for 28 days 02/24/2021 Unknown Immunizations Vaccine Route Administration Date Status [...] Status Risk Notes Problem Colon cancer screening (078980736) Colon cancer screening (Z12.11) Active confirmed Problem 60551439 Crohn's disease of both small and large intestine without complication (K50.80) Active confirmed Problem Vitamin B>12< deficiency anaemia (03098794) Vitamin B12 deficiency anemia, unspecified (D51.9) Active confirmed Problem 48470084 Crohn's disease of small intestine with intestinal obstruction (K50.012) Active confirmed Problem 60596549 Crohn's disease of small intestine with abscess (K50.014) Active confirmed Problem Diverticular disease of colon (326505552) Diverticulosis of large intestine without perforation or abscess without bleeding (K57.30) Active confirmed Problem History of gastrointestinal tract bypass (438730463) Intestinal bypass and anastomosis status (Z98.0) Active confirmed Problem 63914285 Crohns disease o f both small and large intestine without complication (K50.80) Active confirmed Problem Crohn (89181141) Crohn's disease of colon (K50.10) Active confirmed Problem 66983932 Crohns disease o f small intestine with intestinal obstruction (K50.012) Active confirmed Problem 185367325 Vitamin B12 deficiency (E53.8) Active confirmed Problem 476387901 Vitamin B 12 deficiency (E53.8) Active confirmed Problem Crohn's disease of small intestine (65725480) Crohn's disease of small intestine without complication (K50.00) Active confirmed Problem 116156664 Therapeutic drug monitoring (Z51.81) Active confirmed Problem Macrocytosis - no anemia (685114444) Macrocytosis without anemia (D75.89) Active confirmed Problem 96870308 Crohn's disease of small intestine with complication (K50.019) Active confirmed Problem 24407775 Crohn's disease of ileum with complication (K50.019) Active confirmed Vital Signs Temperature 98.9 degrees Fahrenheit 10/17/2024 Blood pressure diastolic 00 mm Hg 10/17/2024 Height 68.5 in 10/17/2024 Blood pressure systolic 000 mm Hg 10/17/2024 Weight 137 lbs 10/17/2024 BMI 20.53 kg/m2 10/17/2024 Encounters Encounter Location Date Provider Diagnosis [facility] [address] [place] [address] 10/17/2024 Alexis Hernandez Crohn's disease of both small and large intestine without complication K50.80 and Therapeutic drug monitoring Z51.81 [facility] [address] [place] [address] 11/27/2024 Alexis Hernandez [facility] [address] [place] [address] 12/11/2024 Alexis Hernandez Vitamin B 12 deficiency E53.8 [facility] [address] [place] [address] 12/18/2024 Alexis Hernandez Vitamin B 12 deficiency E53.8 [facility] [address] [place] [address] 01/01/2025 Alexis Hernandez Vitamin B12 deficien cy E53.8 [facility] [address] [place] [address] 02/05/2025 Alexis Hernandez [facility] [address] [place] [address] 03/12/2025 Alexis Hernandez Vitamin B12 deficien cy E53.8 [facility] [address] [place] [address] 04/16/2025 Alexis Hernandez Vitamin B 12 deficiency E53.8 [facility] [address] [place] [address] 05/23/2025 Alexis Hernandez [facility] [address] [place] [address] 09/23/2024 Alexis Hernandez [facility] [address] [place] [address] 10/24/2024 Alexis Hernandez [facility] [address] [place] [address] 11/21/2024 Alexis Hernandez Macrocytosis without anemia D75.89 and Vitamin B12 deficiency anemia, unspecified D51.9 [facility] [address] [place] [address] 11/25/2024 Alexis Hernandez [facility] [address] [place] [address] 12/22/2024 Alexis Hernandez Assessments Encounter Date Diagnosis [...] Diff Liver Panel 07/22/2021 Prom Thiopurine Metabolites 04/16/2024 Prom Thiopurine Metabolites 10/17/2024 T Spot TB 06/18/2021 Future Test Test Name Order Date COLONOSCOPY 08/11/2022 Next Appt Details Provider Name:Alexis Hernandez , 10/21/2025 09:10:00 AM, [address], [address], [place], [address], Insurance Providers Payer Name Payer Address Payer Phone Subscriber Number Group Number Insured Name Patient Relationship to Insured Coverage Start Date Coverage End Date [facility] [id number] MANNY RICHTER [id number] VEE RESENDEZ Self - patient is the [...] 01/2021-02/2021, then started a monthly shot Denies [place],DM,CVA,Lung disease,renal dise ase Hospitalization in 10/2012 fo [...] 12/2020-not hospitalized Hospitalized in 01/2021 for C dmias's with active Crohn's of the TI with [...]
[2025-06-30 13:27] LABS: MANUAL DIFF FLAG NO
[2025-06-30 13:31] LABS: Hematocrit 38.9 % (42.0-52.0); Hemoglobin 12.6 g/dl (14.0-18.0); Imm Gran Abs Auto 0.02 X10*3/uL (0.00-0.03); Imm Gran Pct Auto 0.3 % (0.0-0.4); Lymphocytes Absolute Auto 0.8 X10*3/uL (1.2-4.9); Mean Corpuscular HGB Conc 32.4 g/dl (31.0-36.0); Mean Corpuscular Hemoglobin 34.7 pg (27.0-33.0); Mean Corpuscular Volume 107.2 fL (80.0-98.0); NRBC Abs Auto 0.000 X10*3/uL (0.0-0.012); NRBC Pct Auto 0.0 /100WBC (0.0-0.2); Platelet Count 273 X10*3/uL (160-400); Red Blood Count 3.63 X10*6/uL (4.60-5.80); White Blood Count 6.0 X10*3/uL (4.8-10.8)
[2025-06-30 13:45] LABS: Alanine Aminotransferase 13 U/L (0-40); Albumin Level 4.3 g/dL (3.5-5.0); Alkaline Phosphatase 74 U/L (39-117); Aspartate Amino Transferase 24 U/L (5-37); Total Protein 6.6 g/dL (6.5-8.0)
== END 2025-06-30 09:42 | disposition home or self-care (01) ==
LOC: HO.HMGCLR 09:41
PROVIDERS: Visit Provider Internal Medicine
DX: K50.80 Crohn's disease of both small and large intestine without complications (principal)
CPT/HCPCS: 36415; 80076; 85025

== ENCOUNTER 2025-07-31 09:58 | Outpatient (REF) | payer MEDICARE, SELFPAY ==
--- OUTSIDE RECORDS SUMMARY | 2025-07-01 06:00 | XMS_ITS ---
Author Organization [facility] Address [address] [facility] [address] [place] [address] Care Team Providers Care Research And Evaluation Analyst Name Role Phone Haroon Harrell MD Primary Care Provider UnaAlexis Solano [phone] Bethel Mitchell MD Unavailable REASON FOR VISIT B12 deficiency Encounters Encounter Location Date Provider Diagnosis [facility] [address] [place] [address] [place] [phone] 07/01/2025 Alexis Hernandez Plan Of Treatment Next Appt Details Provider Name:Alexis Hernandez , 10/21/2025 09:10:00 AM, [address] [place] [address], [address], [place], [address], Progress Notes * VEE RESENDEZ JrDOB:[birth year] (69 yo M)Acc No.[id number]:07/01/2025 SHOT Patient: Mina HERNANDEZVEE Jr Provider: Sugey Hernandez MD :1955 A ge:69 Y S ex:Male Date:07/01/2025 Address:[address] [place], [place] [id number] Pcp:Haroon Harrell MD Subjective: * Chief Complaints: * 1 . B12 deficiency. * Medical History: Objective: * Vitals: Assessment: Plan: * Treatment: * * The named appointment provid er may or may not be the originator of this progress note, and it is not deemed complete until electronically signed by the appointment provider. Sign off status: Pending * Provider: Sugey Hernandez MD Date: 0 07/01/2025 Generated for Pee benavides/Dora/Emily on: 1 11:49 AM EDT
--- OUTSIDE RECORDS SUMMARY | 2025-07-31 11:50 | XMS_ITS | Patient Health Record ---
Author Organization [facility] Address [address] [place] [address] Care Team Providers Care Steam Box Tender Name Role Phone Julio Cesar ARANA, Haroon Primary Care Provider Alexis Garcia Unavailable [phone] Bethel Mitchell MD Unavailable Unavailable Allergies Allergen (clinical drug ingredient) Drug/Non Drug Allergy documented on EMR Reaction Allergy Type Onset Date Status Penicillin Unknown Drug Allergy Active Results Component Value Reference Range Notes Prom Thiopurine Metabolites (Not yet reviewed by provider) Interpretation: Performing Lab:[address] [phone] Notes/Report: Prom Thiopurine Metabolites SEE NOTE SEE SCANNED RESULTS IN EMR Vitamin B12 and Folate Reviewed date:11/27/2024 02:20:21 PM Interpretation: Performing Lab:[facility], [address] [place] [phone] Notes/Report: Vitamin B12 < 148 200-900 pg/mL NORMAL 200-900 PG/ML INDETERMINATE 160-199 PG/ML DEFICIENT < 160 PG/ML Folate 11.1 > or = 4.0 ng/mL Reference Values: > or = 4.0 ng/mL < 4.0 ng/mL suggests folate deficiency Methotrexate, aminopterin and folinic acid (leucovorin) are chemotherapeutic agents whose molecular structures are similar to folate; therefore, the Casualty Claim Adjuster folate assay cannot be used for patients using these drugs. TSH reflex Free T4 Reviewed date:11/24/2024 09:57:46 AM Interpretation: Performing Lab:[facility], [address] [place] [phone] Notes/Report: TSH reflex Free T4 2.03 0.32-4.0 uIU/mL Complete Blood Count Auto Di ff Reviewed date:08/28/2024 05:58:52 PM Interpretation: Performing Lab:[facility], [address] [place] [phone] Notes/Report: White Blood Count 7.0 4.8-10.8 X10*3/uL [...] Panel Reviewed date:08/29/2024 07:51:31 PM Interpretation: Performing Lab:[facility], [address] [place] [phone] Notes/Report: Bilirubin Total 0.4 0.0-1.0 mg/dL Bilirubin Direct 0.2 0.0-0.5 mg/dL Aspartate Amino Transferase 34 5-37 U/L Alanine Aminotransferase 21 0-40 U/L Total Protein 6.7 6.5-8.0 g/dL Albumin Level 4.2 3.5-5.0 g/dL Alkaline Phosphatase 82 39-117 U/L Complete Blood Count Auto Di ff Reviewed date:10/07/2024 08:13:29 PM Interpretation: Performing Lab:[facility], [address] [place] [phone] Notes/Report: White Blood Count 6.0 4.8-10.8 X10*3/uL [...] Panel Reviewed date:10/02/2024 01:50:24 PM Interpretation: Performing Lab:[facility], [address] [place] [phone] Notes/Report: Bilirubin Total 0.4 0.0-1.0 mg/dL Bilirubin Direct 0.2 0.0-0.5 mg/dL Aspartate Amino Transferase 27 5-37 U/L Alanine Aminotransferase 18 0-40 U/L Total Protein 7.0 6.5-8.0 g/dL Albumin Level 4.3 3.5-5.0 g/dL Alkaline Phosphatase 84 39-117 U/L Complete Blood Count Auto Di ff Reviewed date:11/21/2024 06:23:08 PM Interpretation: Performing Lab:[facility], [address] [place] [phone] Notes/Report: White Blood Count 5.8 4.8-10.8 X10*3/uL [...] Panel Reviewed date:11/21/2024 06:25:09 PM Interpretation: Performing Lab:[facility], [address] [place] [phone] Notes/Report: Bilirubin Total 0.4 0.0-1.0 mg/dL Bilirubin Direct 0.2 0.0-0.5 mg/dL Aspartate Amino Transferase 22 5-37 U/L Alanine Aminotransferase 13 0-40 U/L Total Protein 6.8 6.5-8.0 g/dL Albumin Level 4.0 3.5-5.0 g/dL Alkaline Phosphatase 77 39-117 U/L Complete Blood Count Auto Di ff Reviewed date:12/31/2024 12:56:28 AM Interpretation: Performing Lab:[facility], [address] [place] [phone] Notes/Report: White Blood Count 6.0 4.8-10.8 X10*3/uL [...] Panel Reviewed date:12/31/2024 12:57:11 AM Interpretation: Performing Lab:[facility], [address] [place] [phone] Notes/Report: Bilirubin Total 0.4 0.0-1.0 mg/dL Bilirubin Direct 0.2 0.0-0.5 mg/dL Aspartate Amino Transferase 21 5-37 U/L Alanine Aminotransferase 14 0-40 U/L Total Protein 6.9 6.5-8.0 g/dL Albumin Level 4.0 3.5-5.0 g/dL Alkaline Phosphatase 86 39-117 U/L Complete Blood Count Auto Di ff Reviewed date:03/07/2025 06:53:05 PM Interpretation: Performing Lab:[facility], [address] [place] [phone] Notes/Report: White Blood Count 5.8 4.8-10.8 X10*3/uL [...] Panel Reviewed date:03/04/2025 11:57:57 AM Interpretation: Performing Lab:[facility], [address] [place] [phone] Notes/Report: Bilirubin Total 0.4 0.0-1.0 mg/dL Bilirubin Direct 0.3 0.0-0.5 mg/dL Aspartate Amino Transferase 23 5-37 U/L Alanine Aminotransferase 14 0-40 U/L Total Protein 6.7 6.5-8.0 g/dL Albumin Level 4.1 3.5-5.0 g/dL Alkaline Phosphatase 76 39-117 U/L Complete Blood Count Auto Di ff Reviewed date:04/24/2025 11:51:28 PM Interpretation: Performing Lab:[facility], [address] [place] [phone] Notes/Report: White Blood Count 5.4 4.8-10.8 X10*3/uL [...] Panel Reviewed date:04/24/2025 11:50:02 PM Interpretation: Performing Lab:[address] [phone] Notes/Report: Bilirubin Total 0.4 0.0-1.0 mg/dL Bilirubin Direct 0.2 0.0-0.5 mg/dL Aspartate Amino Transferase 24 5-37 U/L Alanine Aminotransferase 16 0-40 U/L Total Protein 6.4 6.5-8.0 g/dL Albumin Level 4.0 3.5-5.0 g/dL Alkaline Phosphatase 68 39-117 U/L Complete Blood Count Auto Di ff Reviewed date:06/30/2025 10:28:12 PM Interpretation: Performing Lab:[address] [phone] Notes/Report: White Blood Count 6.0 4.8-10.8 X10*3/uL Red Blood Count 3.63 4.60-5.80 X10*6/uL Hemoglobin 12.6 14.0-18.0 g/dl Hematocrit 38.9 42.0-52.0 % Mean Corpuscular Volume 107.2 80.0-98.0 fL Mean Corpuscular Hemoglobin 34.7 27.0-33.0 pg Mean Corpuscular HGB Conc 32.4 31.0-36.0 g/dl Red Cell Distribution Width 13.3 11.0-16.0 % Platelet Count 273 160-400 X10*3/uL Mean Platelet Volume 10.2 9.4-12.4 fL Neutrophils Percent Auto 69.8 45-73 % Imm Gran Pct Auto 0.3 0.0-0.4 % Lymphocytes Percent Auto 12.8 20-40 % Monocytes Percent Auto 6.6 2-11 % Eosinophils Percent Auto 9.8 0-4 % Basophils Percent Auto 0.7 0-2 % NRBC Pct Auto 0.0 0.0-0.2 /100WBC Neutrophils Absolute Auto 4.2 2.0-8.3 x10*3/u L Imm Gran Abs Auto 0.02 0.00-0.03 X10*3/uL Lymphocytes Absolute Auto 0.8 1.2-4.9 X10*3/u L Monocytes Absolute Auto 0.4 0.1-1.2 X10*3/uL Eosinophils Absolute Auto 0.6 0.0-0.4 X10*3/u L Basophils Absolute Auto 0.0 0.0-0.2 X10*3/uL NRBC Abs Auto 0.000 0.0-0.012 X10*3/uL Liver Panel Reviewed date:06/30/2025 10:27:28 PM Interpretation: Performing Lab:[facility], [address] [place] [phone] Notes/Report: Bilirubin Total 0.5 0.0-1.0 mg/dL Bilirubin Direct 0.2 0.0-0.5 mg/dL Aspartate Amino Transferase 24 5-37 U/L Alanine Aminotransferase 13 0-40 U/L Total Protein 6.6 6.5-8.0 g/dL Albumin Level 4.3 3.5-5.0 g/dL Alkaline Phosphatase 74 39-117 U/L Reason For Referral No Information Medications Medication SIG (Take, Route, Frequency, Duration) Notes Start Date End Date Status metroNIDAZOLE 500 MG 1 tablet Orally jesus manuel ry 8 hrs Unknown Calcium + D Active azaTHIOprine 50 MG 1 1/2 tablets Orally Once a day; Duration: 90 days 02/27/2023 Active Stelara 90 MG/ML as directed Subcutaneous Last dose in 12/2021 Unknown Multivitamin Active Humira-CD/UC/HS Starter 40 MG/0.8ML 2 Pens on Day #1, 2 Pens on day # 2 then 2 Pens on Day # 15 Subcutaneous QD; Duration: 15 days 02/24/2021 Unknown Pentasa 500 MG 2 capsules Orally Four times a day; Duration: 30 day(s) 02/02/2021 Unknown Humira Pen 40 MG/0.8ML 1 Pen Subcutaneou s Every other week; Duration: 28 days 02/24/2021 Unknown Immunizations Vaccine Route [...] Status Risk Notes Problem Colon cancer screening (257936659) Colon cancer screening (Z12.11) Active confirmed Problem Crohn's disease of small AND large intestines (28483255) Crohn's disease of both small and large intestine without complication (K50.80) Active confirmed Problem Vitamin B>12< deficiency anaemia (78498876) Vitamin B12 deficiency anemia, unspecified (D51.9) Active confirmed Problem Intestinal obstruction due to Crohn's disease of small intestine (5329210374736739) Crohn's disease of small intestine with intestinal obstruction (K50.012) Active confirmed Problem Abscess of intestine co-occurrent and due to Crohn's disease of small intestine (disorder) (4771600529374211) Crohn's disease of small intestine with abscess (K50.014) Active confirmed Problem Diverticular disease of colon (026263273) Diverticulosis of large intestine without perforation or abscess without bleeding (K57.30) Active confirmed Problem 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 (Z98.0) Active confirmed Problem Crohn's disease of small AND large intestines (17067964) Crohns disease of both small and large intestine without complication (K50.80) Active confirmed Problem Crohn's disease of colon (11945087) Crohn's disease of colon (K50.10) Active confirmed Problem Intestinal obstruction due to Crohn's disease of small intestine (disorder) (4056512759561180) Crohns disease of small intestine with intestinal obstruction (K50.012) Active confirmed Problem Vitamin B12 deficiency (296421627) Vitamin B12 deficiency (E53.8) Active confirmed Problem Vitamin B12 deficiency (non anemic) (80206664) Vitamin B 12 deficiency (E53.8) Active confirmed Problem Crohn's disease of small intestine (18798241) Crohn's disease of small intestine without complication (K50.00) Active confirmed Problem Drug monitoring done (121971535) Therapeutic drug monitoring (Z51.81) Active confirmed Problem Macrocytosis - no anemia (924610279) Macrocytosis without anemia (D75.89) Active confirmed Problem Crohn's disease of small intestine (81518952) Crohn's disease of small intestine with complication (K50.019) Active confirmed Problem Crohn's disease of small intestine (86851217) Crohn's disease of ileum with complication (K50.019) Active confirmed Vital Signs Temperature 98.9 degrees Fahrenheit 10/17/2024 Blood pressure diastolic 00 mm Hg 10/17/2024 Height 68.5 in 10/17/2024 Blood pressure systolic 000 mm Hg 10/17/2024 Weight 137 lbs 10/17/2024 BMI 20.53 kg/m2 10/17/2024 Encounters Encounter Location Date Provider Diagnosis [facility] [address] [place] [phone] 07/01/2025 Alexis Hernandez [facility] [address] [place] [phone] 10/17/2024 Alexis Hernandez Crohn's disease of both small and large intestine without complication K50.80 and Therapeutic drug monitoring Z51.81 [facility] [address] [place] [phone] 11/27/2024 Alexis Hernandez [facility] [address] [place] [phone] 12/11/2024 Alexis Hernandez Vitamin B 12 deficiency E53.8 [facility] [address] [place] [phone] 12/18/2024 Alexis Hernandez Vitamin B 12 deficiency E53.8 [facility] [address] [place] [phone] 01/01/2025 Alexis Hernandez Vitamin B12 deficien cy E53.8 [facility] [address] [place] [phone] 02/05/2025 Alexis Hernandez [facility] [address] [place] [phone] 03/12/2025 Alexis Hernandez Vitamin B12 deficien cy E53.8 [facility] [address] [place] [phone] 04/16/2025 Alexis Hernandez Vitamin B 12 deficiency E53.8 [facility] [address] [place] [phone] 05/23/2025 Alexis Hernandez [facility] [address] [place] [phone] 09/23/2024 Alexis Hernandez [facility] [address] [place] [phone] 10/24/2024 Alexis Hernandez [facility] [address] [place] [phone] 11/21/2024 Alexis Hernandez Macrocytosis without anemia D75.89 and Vitamin B12 deficiency anemia, unspecified D51.9 [facility] [address] [place] [phone] 11/25/2024 Alexis Hernandez [facility] [address] [place] [phone] 12/22/2024 Alexis Hernandez [facility] [address] [place] [phone] 07/01/2025 Alexis Hernandez Assessments Encounter Date Diagnosis (ICD [...] B12 AND FOLATE 06/03/2014 CBC w DIFF 06/03/2014 CBC w DIFF 12/23/2016 CBC w DIFF 05/21/2014 CBC w DIFF 09/20/2023 CBC w DIFF 04/06/2021 CBC w DIFF 03/31/2015 CBC w DIFF 02/10/2012 CBC w DIFF 10/17/2024 CBC w DIFF 03/29/2018 CBC w DIFF 03/22/2016 CBC w DIFF 03/24/2021 CBC w DIFF 08/11/2022 CBC w DIFF 04/02/2019 XR GI SMALL BOWEL SERIES 12/06/2012 PROMETHEUS [...] Name:Alexis Hernandez , 10/21/2025 09:10:00 AM, [address], [address], [place], [address], Insurance Providers Payer Name Payer Address Payer Phone Subscriber Number Group Number Insured Name Patient Relationship to Insured Coverage Start Date Coverage End Date [facility] [place] [address] [place], [place] [id number] RESENDEZ Self - patient is the [...]
[2025-07-31 13:26] LABS: MANUAL DIFF FLAG NO
[2025-07-31 13:40] LABS: Hematocrit 41.2 % (42.0-52.0); Hemoglobin 13.5 g/dl (14.0-18.0); Imm Gran Abs Auto 0.03 X10*3/uL (0.00-0.03); Imm Gran Pct Auto 0.5 % (0.0-0.4); Lymphocytes Absolute Auto 0.9 X10*3/uL (1.2-4.9); Mean Corpuscular HGB Conc 32.8 g/dl (31.0-36.0); Mean Corpuscular Hemoglobin 34.9 pg (27.0-33.0); Mean Corpuscular Volume 106.5 fL (80.0-98.0); NRBC Abs Auto 0.000 X10*3/uL (0.0-0.012); NRBC Pct Auto 0.0 /100WBC (0.0-0.2); Platelet Count 288 X10*3/uL (160-400); Red Blood Count 3.87 X10*6/uL (4.60-5.80); White Blood Count 6.5 X10*3/uL (4.8-10.8)
[2025-07-31 14:13] LABS: Alanine Aminotransferase 18 U/L (0-40); Albumin Level 4.3 g/dL (3.5-5.0); Alkaline Phosphatase 71 U/L (39-117); Aspartate Amino Transferase 26 U/L (5-37); Total Protein 6.7 g/dL (6.5-8.0)
== END 2025-07-31 09:59 | disposition home or self-care (01) ==
LOC: HO.HMGCLR 09:58
PROVIDERS: Visit Provider Internal Medicine
DX: K50.80 Crohn's disease of both small and large intestine without complications (principal)
CPT/HCPCS: 36415; 80076; 85025

== ENCOUNTER 2025-09-16 08:57 | Outpatient (REF) | payer MEDICARE, SELFPAY ==
[2025-09-16 10:11] LABS: MANUAL DIFF FLAG NO
[2025-09-16 10:24] LABS: Hematocrit 41.1 % (42.0-52.0); Hemoglobin 13.4 g/dl (14.0-18.0); Imm Gran Abs Auto 0.02 X10*3/uL (0.00-0.03); Imm Gran Pct Auto 0.3 % (0.0-0.4); Lymphocytes Absolute Auto 1.2 X10*3/uL (1.2-4.9); Mean Corpuscular HGB Conc 32.6 g/dl (31.0-36.0); Mean Corpuscular Hemoglobin 34.7 pg (27.0-33.0); Mean Corpuscular Volume 106.5 fL (80.0-98.0); NRBC Abs Auto 0.000 X10*3/uL (0.0-0.012); NRBC Pct Auto 0.0 /100WBC (0.0-0.2); Platelet Count 275 X10*3/uL (160-400); Red Blood Count 3.86 X10*6/uL (4.60-5.80); White Blood Count 6.4 X10*3/uL (4.8-10.8)
[2025-09-16 10:49] LABS: Alanine Aminotransferase 21 U/L (0-40); Albumin Level 4.4 g/dL (3.5-5.0); Alkaline Phosphatase 79 U/L (39-117); Aspartate Amino Transferase 29 U/L (5-37); Total Protein 6.7 g/dL (6.5-8.0)
== END 2025-09-16 08:58 | disposition home or self-care (01) ==
LOC: HO.HMGCLR 08:57
PROVIDERS: Visit Provider Internal Medicine
DX: K50.80 Crohn's disease of both small and large intestine without complications (principal)
CPT/HCPCS: 36415; 80076; 85025